=== PATIENT | female | born 1950 | race Caucasian/White ===

== ENCOUNTER 2017-02-11 15:00 | Outpatient (RCR) | payer OTHER, SELFPAY ==
--- NOTE | 2016-12-31 16:19 | HP.PTEVAL_ITS ---
Patient's Visit Information ANA HILTON is a 66 year old F referred to Physical Therapy by Tom Valencia with a diagnosis of LOW BACK PAIN. Date of Evaluation: 12/31/16 Physical Therapist: Radha Rangel Visit Plan Frequency: 3x /Week Duration: 4 Weeks Plan: POSTURE CORRECTION/STRENGTHENING, INSTRUCTION IN APPROPRIATE BODY MECHANICS AND ACTIVITY MODIFICATIONS. DLS STARTING WITH A NEUTRAL SPINE PROGRESSING ROM TOLERATED. NICK LE ROM, STRETCHING AND STRENGTHENING. HEP INSTRUCTION. - Subjective Subjective: Work/Leisure: [employer]. WORKING 6 DAYS A WEEK - ABOUT 30-35 HOURS A WEEK. Disability: NO. Present symptoms: NICK LOW BACK. LEFT BACK AND BUTTOCK REGION. LEFT THIGH PAIN AND NUMBNESS. THE NUMBNESS IS ON THE TOP OF HER THIGH. NO LEG OR FOOT SX'S. THIGH PAIN WRAPS AROUND TO FRONT. Present since: OCT 2016. Pain Scale: WORST 12/10, LEAST 1/ 10. THERE IS ALWAYS PRESSURE THERE. Currently: 03/11. IMPROVIING. Commenced as a result of: NO APPARENT REASON. Symptoms at onset: LEFT LOW BACK/BUTTOCK PAIN. Worse: STANDING AND WALKING. 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 Better: SITTING AND ADVIL. Disturbed sleep: NO. Previous history/Previous treatment: EPSISODIC LBP FOR ABOUT 20 YEARS. 6 CHIROPRACTIC VISITS ABOUT 4 YEARS AGO. ANTI-INFLAMATORIES AND MUSCLE RELAXERS IN THE PAST. MAINLY SELF TREATMENT PRIOR TO THIS EPISODE BECAUSE IT WOULD USUALLY GO AWAY. NO BACK OR HIP SURGERIES OR INJECTIONS. NO PRIOR PT. Coughing/sneezing/straining: NEGATIVE. Gait: INDEP WITHOUT AD. WALKING PROVOKES PAIN THOUGH. Difficulty initiating urinatin: NO. Accidents: NO. Unexplained weight loss: NO. Imaging: RECENT LUMBAR X-RAYS SHOWING NORMAL WEAR AND TEAR FOR MY AGE. PMH: HTN, CHEST PAIN, OSTEOPENIA. Recent major surgery: NO - Objective Sitting Posture: POOR. Standing Posture: FAIR. Active Correction of posture : WORSE. Other Observations: INDEP SIT TO STAND WITHOUT UE ASSIST EASILY. Motor deficit: NICK LE STRENGTH IS 5/5 WITH MMT EXCEPT HIPS GRADED 4-/5. Sensory deficit: NICK LE LIGHT TOUCH SENSATION IS INTACT AND SYMMETRICAL. ROM deficit: TIGHT NICK HIPS, KNEES, HS'S AND GASTROC SOLEUS COMPLEXS. TIGHTNESS IS FAIRLY SYMMETRICAL. RIGHT HIP ROM TESTING PROVOKES LBP BUT LEFT DOES NOT EVEN THOUGH HER CHEIF COMPLAINT IS LEFT BACK/HIP AND THIGH PAIN. Reflexes: NICK LE'S 2'/2. Dural Signs: NEGATIVE NICK LE DURAL SIGNS. Lumbar mvmt loss: flex - NIL +. ext - SHAI. R SG - SHAI. L SG - SHAI. Core strength: POOR. Palpation: TENDERNESS WITH PALPATION OF THE LEFT GREATER TROCH REGION. NO ACUTE LUMBAR TENDERNESS. - Goals Goal 1:: DECREASE C/O LOW BACK AND LEFT LE SX'S. Goal Time Frame: 4-6 Weeks Goal 2:: IMRPOVE STANDING, WALKING AND WORK FUNCTION Goal Time Frame: 4-6 Weeks Goal 3:: INSTRUCT IN PROPHYLAXIS Goal Time Frame: 4-6 Weeks - Rehabilitation Potential Rehabilitation Potential: Good - Anticipated Interventions Patient/Client Instruction: Educate patient on: Condition, Plan of Care, Risk Factors, Benefits of Fitness Program For the Purpose of:: To improve self management Therapeutic Exercise to Include: Strength training, Body mechanics, Postural training, Dynamic Lumbar Stabilization For the Purpose of:: To improve ability of physical actions for home/community/ work/leisure TENS: Yes IF ES: Yes Thermo therapy (hot pack): Yes Ultrasound (thermal/non thermal): Yes For the Purpose of:: To decrease pain, To decrease swelling/inflammation Thank you for the opportunity to evaluate your patient. For Medicare and Medicare HMO plans, please review the plan of care and approve it. It will need to be FAXED BACK to us at [phone] for Medicare purposes. Please let me know if there are questions or concerns regarding this plan of care. Physician Signature: Date:
== END 2017-02-11 15:30 | disposition home or self-care (01) ==
LOC: PT 15:00
PROVIDERS: Family Provider Family Medicine; PCP Family Medicine; Visit Provider Family Medicine
DX: M54.5 Low back pain (principal)
CPT/HCPCS: 97035; 97110 ×2; 97162; 97530 ×2

== ENCOUNTER → 2017-09-09 11:46 | Outpatient (CLI) | payer MEDICARE, SELFPAY ==
[2017-09-09 14:18] LABS: Absolute Lymphocyte Count 1.47 X10^3/ul (0.83-4.51); Basophil% 1.3 % (0-1); Eosinophil# 0.33 X10^3/uL; Eosinophils% 4.3 % (0-5); Hematocrit 39.2 % (37-47); Hemoglobin 12.8 g/dl (12.0-15.0); Lymphocyte # 1.47 X10^3/ul (4.0); Lymphocyte % 19.2 % (19-41); Mean Corp Hgb Conc 32.7 g/gl (32-36); Mean Corpuscular Hgb 28.8 pg (27.0-32.0); Mean Corpuscular Volume 88.3 fL (81-99); Mean Platelet Vol. 10.5 fl (6.2-12.0); Monocyte# 0.67 X10^3/uL; Monocyte% 8.8 % (0-10); Neutrophil # 5.02 X10^3/uL (2.7-7.7); Neutrophil % 65.6 % (47-70); Platelet Count 281 K/mm3 (150-450); RBC Distribution Width CV 13.1 % (11.6-14.6); RBC Distribution Width SD 42.2 fl (35.1-43.9); Red Blood Count 4.44 M/mm3 (4.2-5.4); White Blood Count 7.7 K/mm3 (4.4-11.0)
[2017-09-09 14:29] LABS: POSITIVE COUNT NO; POSITIVE DIFFERENTIAL NO; POSITIVE MORPHOLOGY NO
[2017-09-09 14:58] LABS: ALB/GLOB Ratio 0.9 RATIO (0.9-2.4); AST(SGOT) 44 U/L (15-37); Alanine Aminotransfer ALT/SGPT 24 U/L (13-56); Albumin, Serum 3.5 g/dL (3.2-5.0); Alkaline Phosphatase 88 U/L (45-117); Anion Gap 9 (5-15); BUN 14 mg/dL (7-18); BUN/Creat Ratio 19.8 RATIO (10-20); Calcium,Total 9.2 mg/dL (8.5-10.1); Chloride 105 mmol/L (98-107); Creatinine, Serum 0.71 mg/dL (0.55-1.02); EST Glomerular Filtration Rate 88 mL/min (>60); Est Glom Filt Rate - Afr Amer 107 mL/min (>60); Globulin 3.7 g/dL (2.2-4.2); Glucose 84 mg/dL (74-106); Potassium 3.8 mmol/L (3.5-5.1); Protein, Total 7.2 g/dL (6.4-8.2); Sodium Level 141 mmol/L (136-145); Thyroid Stim Hormone (TSH) 1.22 uIU/mL (0.358-3.74)
== END ==
PROVIDERS: Family Provider Family Medicine; PCP Family Medicine; Visit Provider Family Medicine
DX: R60.0 Localized edema (principal)
CPT/HCPCS: 36415; 80053; 84443; 85025

== ENCOUNTER → 2017-10-27 14:55 | Outpatient (CLI) | payer MEDICARE, SELFPAY | PROVIDERS: Family Provider Family Medicine; PCP Family Medicine; Visit Provider Family Medicine | DX: R06.00 Dyspnea, unspecified (principal) | CPT/HCPCS: 71046 ==

== ENCOUNTER → 2017-11-23 12:42 | Outpatient (CLI) | payer MEDICARE, SELFPAY ==
--- NOTE | 2017-11-23 12:45 | ECHOCS_ITS ---
Reason For Study: Dyspnea Procedure This was a 2D Doppler, Color Flow transthoracic echocardiogram. The study was technically difficult. Contrast injection was performed. Exam performed in department. Left Ventricle Normal LV size. Left ventricular systolic function is normal. The estimated ejection fraction is 55 %. No regional wall motion abnormalities noted. Right Ventricle Normal RV size. Normal systolic function. Atria The left atrium is mildly enlarged. Normal right atrium. Mitral Valve Normal mitral valve. Tricuspid Valve Normal tricuspid valve. Mild (1+) tricuspid valve insufficiency. Pulmonary artery systolic pressure is 40 mmHg. Aortic Valve Trisinus/trileaflet aortic valve. Mild focal aortic valve calcification. Mild aortic stenosis. Pulmonic Valve Normal pulmonic valve. Great Vessels Normal aortic root. The pulmonary artery is normal size. Normal inferior vena cava. Pericardium/Pleural No pericardial effusion. Medication 22 gauge I.V. with prn adaptor inserted into right arm. Diluted definity 3ml given slow IV push to enhance endocardial definition. MMode/2D Measurements & Calculations LVIDd: 4.3 cm IVSd: 1.1 cm LVOT diam: 1.9 cm LVIDs: 2.4 cm LVPWd: 0.87 cm LVOT area: 2.7 cm2 FS: 45.1 % Ao root diam: 2.8 cm LAV(MOD-sp4): 58.7 ml LVAd ap4: 29.4 cm2 LA dimension: 3.6 cm EDV(MOD-sp4): 95.4 ml EDV(sp4-el): 99.3 ml LVAs ap4: 15.4 cm2 ESV(MOD-sp4): 33.9 ml ESV(sp4-el): 32.2 ml EF(MOD-sp4): 64.5 % EF(sp4-el): 67.6 % SV(MOD-sp4): 61.5 ml SV(sp4-el): 67.1 ml LA A4 area: 20.2 cm2 Time Measurements MV dec time: 0.23 sec Doppler Measurements & Calculations MV E max kenna: 132.9 cm/sec MV V2 max: 154.1 cm/sec MV P1/2t max kenna: 155.0 cm/sec MV A max kenna: 118.5 cm/sec MV max P.5 mmHg MV P1/2t: 95.6 msec MV E/A: 1.1 MV V2 mean: 69.9 cm/sec MV dec slope: 475.0 cm/sec2 MV mean P.5 mmHg MVA(P1/2t): 2.3 cm2 MV V2 VTI: 46.4 cm MVA(VTI): 1.8 cm2 Ao V2 max: 212.9 cm/sec LV V1 max: 133.7 cm/sec SV(LVOT): 84.6 ml Ao max P.1 mmHg LV V1 max P.2 mmHg Ao V2 mean: 127.2 cm/sec LV V1 mean P.1 mmHg Ao mean P.7 mmHg LV V1 mean: 79.2 cm/sec Ao V2 VTI: 43.3 cm LV V1 VTI: 31.1 cm TERA(I,D): 2.0 cm2 TERA(V,D): 1.7 cm2 PA V2 max: 107.9 cm/sec TR max kenna: 295.9 cm/sec TR max P.0 mmHg Interpretation Summary Normal LV size. Left ventricular systolic function is normal. The estimated ejection fraction is 55 %. The left atrium is mildly enlarged. Mild (1+) tricuspid valve insufficiency. Mild focal aortic valve calcification. Mild aortic stenosis. Ordering Physician: Tom Valencia Referring Physician: Tom Valencia Performed By: Luis Brumfield RCS
== END ==
PROVIDERS: Family Provider Family Medicine; PCP Family Medicine; Visit Provider Family Medicine
DX: R06.00 Dyspnea, unspecified (principal)
CPT/HCPCS: 93306; Q9957; A4216; C8929

== ENCOUNTER → 2017-11-30 09:19 | Outpatient (CLI) | payer MEDICARE, SELFPAY ==
[2017-11-30 12:53] LABS: Anion Gap 8 (5-15); BUN 20 mg/dL (7-18); Calcium,Total 9.2 mg/dL (8.5-10.1); Chloride 101 mmol/L (98-107); Cholesterol 196 mg/dL (200); Creatinine, Serum 0.77 mg/dL (0.55-1.02); EST Glomerular Filtration Rate 80 mL/min (>60); Est Glom Filt Rate - Afr Amer 97 mL/min (>60); Glucose 93 mg/dL (74-106); High Density Lipoprotein 48 mg/dL; Potassium 3.9 mmol/L (3.5-5.1); Sodium Level 143 mmol/L (136-145); Triglycerides 97 mg/dL; Very Low Density Lipoprotein 19 mg/dL (5-40)
== END ==
PROVIDERS: Family Provider Family Medicine; PCP Family Medicine; Referring Provider Nurse Practitioner Adult Health; Visit Provider Nurse Practitioner Adult Health
DX: R60.0 Localized edema (principal); Z13.220 Encounter for screening for lipoid disorders
CPT/HCPCS: 36415; 80048; 80061

== ENCOUNTER 2017-12-24 12:17 | Observation (INO) | payer MEDICARE, SELFPAY ==
[2017-12-24] VITALS (9 sets, daily range): BP systolic 116–188; BP diastolic 57–89; PULSE 62–80; RESP 16–19; TEMP 36.8–37.1; O2SAT 95–99; BMI 49.5; BMI 47.8
--- NOTE | 2017-12-24 12:41 | EKG12_ITS ---
Test Reason : Blood Pressure : / mmHG Vent. Rate : 070 BPM Atrial Rate : 070 BPM P-R Int : 142 ms QRS Dur : 072 ms QT Int : 400 ms P-R-T Axes : 051 048 035 degrees QTc Int : 432 ms Normal sinus rhythm Normal ECG Confirmed by MARIA DE JESUS CLEMONS ([id number]), editor newspaper NELLY MENARD ([id number]) on 12/29/2017 8:59:33 AM Referred By: LANCE Confirmed By:MARIA DE JESUS CLEMONS
--- NOTE | 2017-12-24 12:42 | RAD_ITS ---
STUDY: X-RAY CHEST REASON FOR EXAM: Female, 67 years old. Dyspnea. Chest heaviness. TECHNIQUE: Single AP portable view of the chest. COMPARISON: Comparison is made with prior examination dated October 27, 2017. FINDINGS: EKG electrodes are seen. The lungs are clear and expanded. Scattered calcified granulomas. There is no demonstrated pleural abnormality. Normal size heart. Normal mediastinum and rupali. Normal visualized pulmonary arteries. Normal visualized aortic arch and descending thoracic aorta. There are diffuse degenerative changes of the visualized thoracic spine. Normal visualized ribs, clavicles, and shoulders. There is no demonstrated abnormality of the visualized soft tissue structures of the upper abdomen. RAD/Chest 1 View (Portable) IMPRESSION: No acute abnormality is seen. Electronically Signed: Jr Maddox MD at 13:32 EDT Tel [phone], Service support ,
[2017-12-24 12:52] LABS: Absolute Lymphocyte Count 1.45 X10^3/ul (0.83-4.51); Absolute Neutrophil Count 4.9 X10^3/uL (2.0-7.7); Basophil# 0.09 X10^3/uL; Basophil% 1.2 % (0-1); Eosinophil# 0.25 X10^3/uL; Eosinophils% 3.4 % (0-5); Hematocrit 37.9 % (37-47); Lymphocyte # 1.45 X10^3/ul (4.0); Mean Corp Hgb Conc 31.7 g/gl (32-36); Mean Corpuscular Hgb 28.2 pg (27.0-32.0); Mean Corpuscular Volume 89.2 fL (81-99); Monocyte# 0.49 X10^3/uL; Monocyte% 6.8 % (0-10); Neutrophil # 4.94 X10^3/uL (2.7-7.7); Neutrophil % 68.2 % (47-70); Platelet Count 291 K/mm3 (150-450); RBC Distribution Width CV 13.4 % (11.6-14.6); RBC Distribution Width SD 43.8 fl (35.1-43.9); Red Blood Count 4.25 M/mm3 (4.2-5.4); White Blood Count 7.3 K/mm3 (4.4-11.0)
[2017-12-24 12:56] LABS: POSITIVE COUNT NO; POSITIVE DIFFERENTIAL NO; POSITIVE MORPHOLOGY NO
[2017-12-24 13:03] LABS: Anion Gap 5 (5-15); BUN 13 mg/dL (7-18); BUN/Creat Ratio 13.8 RATIO (10-20); Chloride 105 mmol/L (98-107); Creatinine, Serum 0.94 mg/dL (0.55-1.02); EST Glomerular Filtration Rate 63 mL/min (>60); Est Glom Filt Rate - Afr Amer 76 mL/min (>60); Estimated Creatinine Clearance 42.86 ml/min; Glucose 104 mg/dL (74-106); Potassium 3.5 mmol/L (3.5-5.1); Sodium Level 140 mmol/L (136-145)
--- NOTE | 2017-12-24 13:38 | CT_ITS ---
STUDY: CTA CHEST REASON FOR EXAM: Female, 67 years old. 3 month history of fatigue, chest pain and dyspnea. RADIATION DOSAGE (If Supplied By Facility): CTDIvol = ( 14.73 ) mGy, DLP = ( 556.65 ) mGycm TECHNIQUE: The examination was performed with the intravenous administration of 100 ml of Isovue 370 contrast material. Post-processing of the angiographic images was performed, with multiplanar reformation and 3D reconstruction. Individualized dose optimization techniques were used for this CT. COMPARISON: Comparison is made with prior chest radiograph done earlier in the day. FINDINGS: There is a 3.8 cm x 3.1 cm inhomogeneous solid mass in the right lobe of the thyroid gland. This most likely represents goitrous enlargement. Normal enhancement of the main pulmonary artery and right and left pulmonary arteries. Normal enhancement of the bilateral peripheral pulmonary arteries. There is no demonstrated pulmonary embolism. Normal thoracic aorta and visualized great vessels. There is no demonstrated aortic dissection. Normal heart and pericardium. There are visualized mediastinal lymph nodes, which are within normal size limits, and with normal morphology. Normal hilar regions. Normal visualized trachea and bronchi. The lungs are well expanded. Normal pulmonary parenchyma. Normal pleura. Normal chest wall structures. There are degenerative changes of thoracic spine. The patient is status post cholecystectomy. CT/CTA Chest W/WO Contrast IMPRESSION: Normal CTA chest examination, without a demonstrated pulmonary embolism or arterial dissection. Electronically Signed: Jr Maddox MD at 15:01 EDT Tel [phone], Service support ,
--- NOTE | 2017-12-24 16:04 | ED.VISSUMM ---
- ER Visit Summary Date of Service: 12/24/17 Chief Complaint: Dyspnea History of Present Illness: The patient is a 67 F who states that for the past several weeks she has been developing dyspnea on exertion. She states that she went to her doctor and had an echocardiogram done that showed some mild aortic stenosis. (Chart review shows this was performed October 2017. Ejection fraction 55% mild tricuspid insufficiency. Mild aortic stenosis. We will may artery pressure at 40.). She states that she had a sleep study done approximately 1 week ago and believes her symptoms have gotten significantly worse since then. She states she has to rest several times walking from the car into the emergency room. She also notes an associated left-sided chest tightness when she walks. She had a stress test in May 2016 that was negative. She has been referred to pulmonology Dr. Watkins for pulmonary function testing. I received a copy of her sleep study which was read as obstructive sleep apnea. Physical Examination: Afebrile vital signs are stable Gen: Well-nourished well-developed obese Head: Normocephalic atraumatic Eyes: Perrl EOMI ENT: TMs clear no rhinorrhea moist mucous membranes Neck: Supple no lymphadenopathy no JVD nontender CVS: Regular rate rhythm no murmurs normal S1-S2 Respiratory: No distress clear to auscultation bilaterally chest nontender Abdomen: Soft nontender nondistended normal bowel sounds no masses Back: Nontender Extremity: Nontender 1+ edema bilaterally Skin: Normal color no rash Neuro: alert orientated ?3 CN II-XII intact normal strength sensation reflexes gait cerebellar Psych: Normal affect normal mood Test Results: EKG demonstrated normal sinus rhythm at a rate of 70. No ectopy. CBC BMP troponin negative. Chest x-ray negative. CT Roxana of the chest negative for PE or for dissection. Emergency Department Course and Treatment: Patient was asked to ambulate with nursing. From walking from the room to the nurses desk she became short of breath pulse ox dropped to 90% and she had labored breathing. This improved with rest. I spoke with Dr. Andrews as well as and the plan will be admission for further evaluation. Impression: 1. Chest pain 2. Dyspnea 3. Obstructive sleep apnea This note was generated with [employer] dictation software. It may contain incorrect words, spelling, and punctuation that were not noted in review of the chart prior to signing ED Disposition - Plan for ED Patient: Chief Complaint: Chest Pain Referrals: Tom Valencia MD [Primary Care Provider] -
--- NOTE | 2017-12-24 16:07 | HP.PCM_ITS ---
Problem List (1) Shortness of breath Status: Acute (2) Chest heaviness Status: Acute History of Present Illness Date of Admission: 12/24/17 Chief Complaint: Worsening shortness of breath and chest heaviness. The patient is a 67 year old F with a history of hypertension and recently diagnosed sleep apnea. She was admitted through the ED on 12/24/2017 with complaint of worsening shortness of breath for the past 2 months which actually worsened the last 2 days. Is worse with exertion and not relieved by rest. She also had assisted chest heaviness which started 1 day ago. She denied any lightheadedness or dizziness no palpitations and also had no abdominal pain, diarrhea vomiting. She recently had a sleep study last Thursday and was diagnosed with sleep apnea but is here to have CPAP test. She has been referred to pulmonology 12 PFTs but is here to do so. In the ED vitals were significant for blood pressure 149/82. Chest x-ray showed no acute cardiopulmonary process and CT angiogram was negative. EKG showed normal sinus rhythm. Initial troponin was negative. 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 Denies: Chest Pain, Chest Tightness, Light Headedness, Orthopnea Respiratory: Reports: Shortness of Breath, Shortness of breath at rest, Shortness of breath upon exertion. Denies: Cough, Sputum production, Wheezing Gastrointestinal: Denies: Abdominal Pain, Nausea, Vomiting Genitourinary: Denies: Dysuria Gynecological: Reports: Breast symptoms Musculoskeletal: Denies: Joint Pain, Joint Tenderness Skin: Denies: Rash, Wounds Neurological: Denies: Numbness, Tingling, Focal weakness Psychiatric: Denies: Anxiety, Depression, Homicidal Ideations, Suicidal Ideations Hematologic/ Lymphatic: Denies: Easy Bruising, Easy Bleeding VTE Information - Inpt Only VTE Present on Admission: No VTE Pharm Prophylaxis ordered?: Yes - Physical Exam General: Alert, Oriented x3, Cooperative, No apparent distress HEENT: Atraumatic, PERRLA, EOMI, Normocephalic Oral: Moist Mucosa Neck: Supple, No JVD, Negative Carotid Bruits Lungs: Clear to auscultation, Normal air movement, No rhonchi, No wheeze, No rales Cardiovascular: Regular rate, Regular Rhythm, Normal S1, Normal S2, No murmurs Abdomen: Bowel Sounds Present, Soft, Non Tender, Non-Distended, No Hepato- splenomegaly Extremities: No clubbing, No cyanosis, Capillary Refill Less than 3 Seconds, - - Chronic bilateral lower extremity edema with some stasis dermatitis of right lower extremity. Skin: - - stasis dermatitis of RLE Musculoskeletal: No Tenderness to Palpation of Joints or Extremities Lymphatic: No Cervical, Supraclavicular, or Inguinal Adenopathy Neurological: Cranial nerves II-XII grossly intact Psych/Mental Status: Normal Affect, Appropriate, Alert and oriented to time, place, person, mood and affect Vital Signs Temp Pulse Resp BP Pulse Ox 98.6 F 75 16 149/82 H 96 12/24/17 12:17 12/24/17 16:00 12/24/17 16:00 12/24/17 16:00 12/24/17 16:00 Oxygen Delivery Method Room Air Weight: 253 lb 8.505 oz Body Mass Index (BMI) 49.5 Laboratory Tests Past 24 Hrs 12/24/17 12/24/17 12:25 12:25 WBC 7.3 RBC 4.25 Hgb 12.0 Hct 37.9 MCV 89.2 MCH 28.2 MCHC 31.7 L RDW 13.4 RDW Differential 43.8 Plt Count 291 MPV 10.0 Immature Gran % (Auto) 0.400 Neut % (Auto) 68.2 Lymph % (Auto) 20.0 [place] % (Auto) 6.8 Eos % (Auto) 3.4 Baso % (Auto) 1.2 H Absolute Neuts (auto) 4.9 Absolute Lymphs (auto) 1.45 Total Counted Not Reportable Sodium 140 Potassium 3.5 Chloride 105 Carbon Dioxide 30.0 Anion Gap 5 BUN 13 Creatinine 0.94 Estim Creat Clear Calc 42.86 Est GFR (MDRD) Af Amer 76 Est GFR (MDRD) Non-Af 63 BUN/Creatinine Ratio 13.8 Glucose 104 Calcium 9.0 Troponin I < 0.015 Assessment/Plan All Active Problems Shortness of breath (Acute) Chest heaviness (Acute) Chest pain (Acute) [age]-year-old female presenting with chest heaviness worsening shortness of breath of 2 months duration. 1. Chest heaviness, to rule out ACS * says she has had 2 stress tests in the past and they were negative. * EKG- normal sinus rhythm * initial troponin negative. * CXR showed no acute cardiopulmonary process. CT Angiogram showed a 3.8 x 3.1 cm inhomogeneous solid mass in right lobe of the thyroid gland likely presented goiter with enlargement was negative for any PE. * Admit to PCU with telemetry. * Cycle troponin. * Check A1c and lipid panel. * For stress test tomorrow morning. * Aspirin 81 mg daily and sublingual nitroglycerin as needed * 2. Hypertension: On lisinopril. Will continue. 3. Newly diagnosed sleep apnea: * To follow-up with pulmonology upon discharge. Yet To have CPAP test * 4. Thyroid mass: * CT scan picked up 3.8 x 3.1 cm inhomogeneous solid mass in the right lobe of thyroid gland most likely represents goitrous enlargement. Currently symptomatic. No previous CT to compare. * Will check TSH. 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 * DVT prophylaxis: Heparin CODE STATUS: Patient counseled extensively about differences between full code, DNR CC and DNR CCA. Patient elects to be full code. Total [id number] time 16 minutes. Code Visit OBSV E&M: 96386 Initial observation care L2 Procedures: 64110 Advncd Care Plan 30 Min
--- NOTE | 2017-12-24 17:13 | PCM.CONS.C ---
Problem List (1) Shortness of breath Status: Acute (2) Chest heaviness Status: Acute (3) Chest pain Status: Acute Qualifiers: Chest pain type: precordial pain Qualified Code(s): R07.2 - Precordial pain Reason for Consult Date of Consultation: 12/24/17 Reason for Consultation: Dyspnea on exertion, shortness of breath, chest heaviness. History of Present Illness: The patient is a 67 year old F, morbidly obese, nondiabetic, previous smoker who quit around 10 or 12 years ago after approximately [id number]-[id number] smoking history, no previous known COPD and recently evaluated for obstructive sleep apnea with a sleep study this past Thursday. Interestingly during the sleep study evaluation while she was on oxygen at night her breathing was much better. The patient states that over the last several weeks to months she has had progressively worsening dyspnea on exertion, shortness of breath, decreased exercise capacity and decreased energy level. This worsened to the point where she has developed substernal chest pressure which is nonradiating with no associated nausea or vomiting, mostly at rest but occasionally with exertion. In addition she has had chronic lower extremity edema that oscillates on a daily basis for the last several years and is recently gotten worse. The patient underwent a cardiac evaluation including an echocardiogram on 11/23/17 which showed normal LV function, RVSP of approximately 40 mmHg, and mild atherosclerotic thickening. Patient reports that she had a non-walking nuclear stress test on 06/16/16 which was negative for inducible ischemia. She has never had a catheterization. On further history, she has a significant positive family history of coronary disease and her younger brother who of a myocardial infarction at age 53, and a father and mother who both have coronary artery disease at 68 and 69 respectively. The patient recently underwent a sleep study per Dr. Watkins, which was reportedly positive for obstructive sleep apnea. She has not yet been fitted for her CPAP mask. The patient came to [facility] ER for extreme dyspnea on exertion and shortness of breath as well as her chest pressure. Her EKG showed normal sinus rhythm, normal axis, normal intervals, no acute changes. 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 Denies: Shortness of Breath, Orthopnea, PND, Palpitations, Lightheadedness, Dizziness, Near Syncope, Syncope Respiratory: Denies: Cough, Sputum Production, Hemoptysis Gastrointestinal: Denies: Hematemesis, Hematochezia, Melena Genitourinary: Denies: Dysuria, Hematuria Skin: Denies: Rash Objective: Vital Signs Temp Pulse Resp BP Pulse Ox 98.8 F 72 19 H 188/89 H 96 12/24/17 16:46 12/24/17 16:46 12/24/17 16:46 12/24/17 16:46 12/24/17 16:46 Oxygen Delivery Method Room Air Weight: 244 lb 14.937 oz Body Mass Index (BMI) 47.8 12/24/17 12:25: WBC 7.3, RBC 4.25, Hgb 12.0, Hct 37.9, MCV 89.2, MCH 28.2, MCHC 31.7 L, RDW 13.4, RDW Differential 43.8, Plt Count 291, MPV 10.0, Immature Gran % (Auto) 0.400, Neut % (Auto) 68.2, Lymph % (Auto) 20.0, [place] % (Auto) 6.8, Eos % (Auto) 3.4, Baso % (Auto) 1.2 H, Absolute Neuts (auto) 4.9, Total Counted Not Reportable 12/24/17 12:25: Sodium 140, Potassium 3.5, Chloride 105, Carbon Dioxide 30.0, Anion Gap 5, BUN 13, Creatinine 0.94, Est GFR (MDRD) Af Amer 76, Est GFR (MDRD) Non-Af 63, BUN/Creatinine Ratio 13.8, Glucose 104, Calcium 9.0, Troponin I < 0.015 Rhythm: EKG: ECHO: Stress Test: Cardiac Cath: Pending PCI: CT Surgery: Holter monitor: EPS: PPM: CXR: Chest CT Scan: Assessment/Plan 1. Dyspnea on exertion: The patient has several risk factors for dyspnea on exertion including previous smoking, obesity, lower extremity edema, shortness of breath, dyspnea on exertion and positive family history of premature coronary disease in her brother. I am somewhat concerned the patient may have coronary disease versus her pulmonary system being entirely responsible for her signs and symptoms. Patient has evidence of oscillating lower extremity edema suggesting increased pulmonary filling pressures as well. I recommended the patient be loaded with baby aspirin x4, followed by Plavix 300 mg x1, and that she undergo a left and right heart catheterization tomorrow morning. Although her stress test was negative in 2017, this does not exclude the possibility of possible multivessel coronary disease or left main disease which would explain her dyspnea on exertion. The risks/benefits of the procedure were thoroughly explained to the patient including limitations of on-site surgical backup, and the patient is agreed to proceed. The patient has no significant coronary disease I would refer her back to her primary radiographer mammographer Dr. Watkins for BiPAP therapy, and possible pulmonary function test for undiagnosed COPD. In addition we will start her on Lasix 40 mg IV daily to assist with lower extremity edema as well as William bandages to her bilateral lower extremity. 2. 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 Will obtain TSH and T4 for further evaluation, may require endocrine referral. 3. Hyperlipidemia: Recommend obtaining a fasting lipid profile to further risk stratify the patient's cardiac issues. 4. Thank you very much for the opportunity to participate in the cardiac care of your patient. Consultation time took place between 445 and 5:23 PM.
--- NOTE | 2017-12-24 17:18 | CON.PCM_ITS ---
Problem List (1) Shortness of breath Status: Acute (2) Chest heaviness Status: Acute (3) Chest pain Status: Acute Qualifiers: Chest pain type: precordial pain Qualified Code(s): R07.2 - Precordial pain Reason for Consult Date of Consultation: 12/24/17 Reason for Consultation: Dyspnea on exertion, shortness of breath, chest heaviness. History of Present Illness: The patient is a 67 year old F, morbidly obese, nondiabetic, previous smoker who quit around 10 or 12 years ago after approximately 44-dytj-uhxq smoking history, no previous known COPD and recently evaluated for obstructive sleep apnea with a sleep study this past Thursday. Interestingly during the sleep study evaluation while she was on oxygen at night her breathing was much better. The patient states that over the last several weeks to months she has had progressively worsening dyspnea on exertion, shortness of breath, decreased exercise capacity and decreased energy level. This worsened to the point where she has developed substernal chest pressure which is nonradiating with no associated nausea or vomiting, mostly at rest but occasionally with exertion. In addition she has had chronic lower extremity edema that oscillates on a daily basis for the last several years and is recently gotten worse. The patient underwent a cardiac evaluation including an echocardiogram on 11/23/17 which showed normal LV function, RVSP of approximately 40 mmHg, and mild atherosclerotic thickening. Patient reports that she had a non-walking nuclear stress test on 06/16/16 which was negative for inducible ischemia. She has never had a catheterization. On further history, she has a significant positive family history of coronary disease and her younger brother who of a myocardial infarction at age 53, and a father and mother who both have coronary artery disease at 68 and 69 respectively. The patient recently underwent a sleep study per Dr. Watkins, which was reportedly positive for obstructive sleep apnea. She has not yet been fitted for her CPAP mask. The patient came to [facility] ER for extreme dyspnea on exertion and shortness of breath as well as her chest pressure. Her EKG showed normal sinus rhythm, normal axis, normal intervals, no acute changes. 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 Denies: Shortness of Breath, Orthopnea, PND, Palpitations, Lightheadedness, Dizziness, Near Syncope, Syncope Respiratory: Denies: Cough, Sputum Production, Hemoptysis Gastrointestinal: Denies: Hematemesis, Hematochezia, Melena Genitourinary: Denies: Dysuria, Hematuria Skin: Denies: Rash Objective: Vital Signs Temp Pulse Resp BP Pulse Ox 98.8 F 72 19 H 188/89 H 96 12/24/17 16:46 12/24/17 16:46 12/24/17 16:46 12/24/17 16:46 12/24/17 16:46 Oxygen Delivery Method Room Air Weight: 244 lb 14.937 oz Body Mass Index (BMI) 47.8 12/24/17 12:25: WBC 7.3, RBC 4.25, Hgb 12.0, Hct 37.9, MCV 89.2, MCH 28.2, MCHC 31.7 L, RDW 13.4, RDW Differential 43.8, Plt Count 291, MPV 10.0, Immature Gran % (Auto) 0.400, Neut % (Auto) 68.2, Lymph % (Auto) 20.0, [place] % (Auto) 6.8, Eos % (Auto) 3.4, Baso % (Auto) 1.2 H, Absolute Neuts (auto) 4.9, Total Counted Not Reportable 12/24/17 12:25: Sodium 140, Potassium 3.5, Chloride 105, Carbon Dioxide 30.0, Anion Gap 5, BUN 13, Creatinine 0.94, Est GFR (MDRD) Af Amer 76, Est GFR (MDRD) Non-Af 63, BUN/Creatinine Ratio 13.8, Glucose 104, Calcium 9.0, Troponin I < 0.015 Rhythm: EKG: ECHO: Stress Test: Cardiac Cath: Pending PCI: CT Surgery: Holter monitor: EPS: PPM: CXR: Chest CT Scan: Assessment/Plan 1. Dyspnea on exertion: The patient has several risk factors for dyspnea on exertion including previous smoking, obesity, lower extremity edema, shortness of breath, dyspnea on exertion and positive family history of premature coronary disease in her brother. I am somewhat concerned the patient may have coronary disease versus her pulmonary system being entirely responsible for her signs and symptoms. Patient has evidence of oscillating lower extremity edema suggesting increased pulmonary filling pressures as well. I recommended the patient be loaded with baby aspirin x4, followed by Plavix 300 mg x1, and that she undergo a left and right heart catheterization tomorrow morning. Although her stress test was negative in 2017, this does not exclude the possibility of possible multivessel coronary disease or left main disease which would explain her dyspnea on exertion. The risks/benefits of the procedure were thoroughly explained to the patient including limitations of on- site surgical backup, and the patient is agreed to proceed. The patient has no significant coronary disease I would refer her back to her primary interior assemblies installer Dr. Watkins for BiPAP therapy, and possible pulmonary function test for undiagnosed COPD. In addition we will start her on Lasix 40 mg IV daily to assist with lower extremity edema as well as William bandages to her bilateral lower extremity. 2. 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 Will obtain TSH and T4 for further evaluation, may require endocrine referral. 3. Hyperlipidemia: Recommend obtaining a fasting lipid profile to further risk stratify the patient's cardiac issues. 4. Thank you very much for the opportunity to participate in the cardiac care of your patient. Consultation time took place between 445 and 5:23 PM.
[2017-12-24] MEDS: Clopidogrel Bisulfate 300 MG Tablet PO (17:36)
[2017-12-24] MEDS: Aspirin 81 MG TAB.CHEW 324 MG PO (17:36)
--- NOTE | 2017-12-24 17:49 | EKG12_ITS ---
Test Reason : ADMISSION Blood Pressure : / mmHG Vent. Rate : 059 BPM Atrial Rate : 059 BPM P-R Int : 162 ms QRS Dur : 078 ms QT Int : 430 ms P-R-T Axes : 030 044 038 degrees QTc Int : 425 ms Sinus bradycardia Otherwise normal ECG When compared with ECG of 24-DEC-2017 12:21, MANUAL COMPARISON REQUIRED, DATA IS UNCONFIRMED Confirmed by MARIA DE JESUS CLEMONS ([id number]), publications editor NELLY MENARD ([id number]) on 12/29/2017 12:47:27 PM Referred By: JUDY Confirmed By:MARIA DE JESUS CLEMONS
[2017-12-24 18:23] LABS: Cholesterol 197 mg/dL (200); High Density Lipoprotein 44 mg/dL; T4 Free Direct 1.11 ng/dL (0.76-1.46); Thyroid Stim Hormone (TSH) 1.32 uIU/mL (0.358-3.74); Triglycerides 133 mg/dL; Very Low Density Lipoprotein 27 mg/dL (5-40)
[2017-12-24] MEDS: 0.9% NaCl Peripheral Flush Adult/Peds IV (21:28)
[2017-12-25] VITALS (17 sets, daily range): BP systolic 121–149; BP diastolic 54–96; PULSE 57–140; RESP 14–18; TEMP 36.6–37.3; O2SAT 94–97
[2017-12-25 05:52] LABS: Absolute Lymphocyte Count 1.21 X10^3/ul (0.83-4.51); Absolute Neutrophil Count 3.7 X10^3/uL (2.0-7.7); Basophil# 0.07 X10^3/uL; Basophil% 1.2 % (0-1); Eosinophil# 0.24 X10^3/uL; Hematocrit 35.2 % (37-47); Hemoglobin 11.4 g/dl (12.0-15.0); Lymphocyte # 1.21 X10^3/ul (4.0); Lymphocyte % 20.3 % (19-41); Mean Corp Hgb Conc 32.4 g/gl (32-36); Mean Corpuscular Hgb 28.9 pg (27.0-32.0); Mean Corpuscular Volume 89.1 fL (81-99); Mean Platelet Vol. 10.1 fl (6.2-12.0); Monocyte# 0.66 X10^3/uL; Monocyte% 11.1 % (0-10); Neutrophil # 3.74 X10^3/uL (2.7-7.7); Neutrophil % 62.9 % (47-70); Platelet Count 237 K/mm3 (150-450); RBC Distribution Width CV 13.6 % (11.6-14.6); RBC Distribution Width SD 44.3 fl (35.1-43.9); Red Blood Count 3.95 M/mm3 (4.2-5.4)
--- NOTE | 2017-12-25 05:55 | EKG12_ITS ---
Test Reason : AM Blood Pressure : / mmHG Vent. Rate : 064 BPM Atrial Rate : 064 BPM P-R Int : 160 ms QRS Dur : 080 ms QT Int : 422 ms P-R-T Axes : 037 055 026 degrees QTc Int : 435 ms Normal sinus rhythm Normal ECG When compared with ECG of 24-DEC-2017 16:37, MANUAL COMPARISON REQUIRED, DATA IS UNCONFIRMED Confirmed by MARIA DE JESUS CLEMONS ([id number]), editor magazine NELLY MENARD ([id number]) on 12/29/2017 12:46:25 PM Referred By: JUDY Confirmed By:MARIA DE JESUS CLEMONS
[2017-12-25 06:06] LABS: POSITIVE COUNT NO; POSITIVE DIFFERENTIAL NO; POSITIVE MORPHOLOGY NO
[2017-12-25 06:12] LABS: Anion Gap 5 (5-15); BUN 14 mg/dL (7-18); BUN/Creat Ratio 18.4 RATIO (10-20); Calcium,Total 8.9 mg/dL (8.5-10.1); Chloride 107 mmol/L (98-107); Creatinine, Serum 0.76 mg/dL (0.55-1.02); EST Glomerular Filtration Rate 81 mL/min (>60); Est Glom Filt Rate - Afr Amer 98 mL/min (>60); Estimated Creatinine Clearance 53.01 ml/min; Glucose 103 mg/dL (74-106); Potassium 3.9 mmol/L (3.5-5.1); Prothrombin Time (Protime)PT. 13.6 SECONDS (11.7-14.9); Sodium Level 142 mmol/L (136-145)
[2017-12-25 06:13] LABS: Partial Thromboplast Time 33.2 Seconds (24.1-36.2)
[2017-12-25] MEDS: Lisinopril 10 MG Tablet PO (06:27)
[2017-12-25] MEDS: Aspirin 81 MG TAB.CHEW PO (06:27)
[2017-12-25] MEDS: 0.9% Normal Saline 1,000 ML 15 ML IV (06:28)
[2017-12-25 06:56] LABS: Mucous, Urine 0 SEEN /hpf (<or=2+); Red Blood Cells-Urine 0 SEEN /hpf (0-5)
[2017-12-25 06:57] LABS: Color, Urine Yellow (Yellow); Glucose, Dipstick Normal (Normal); Ketone-Dipstick Negative (Negative); Leukocyte Esterase-Dipstick 500 /ul (Negative); Nitrite-Dipstick Negative (Negative); Occult Blood-Urine Negative /ul (Negative); Protein-Dipstick 15 mg/dl (Negative); Specific Gravity, Urine 1.025 (1.002-1.030); Urine Bilirubin Dipstick Negative (Negative); Urine Clarity Clear (Clear); Urine Urobilinogen Normal (Normal)
[2017-12-25 07:08] LABS: Bacteria RARE /hpf (None Seen); Squamous Epithelial Cells - UA 0-5 SEEN /hpf (5-10); White Blood Cells 5-10 SEEN /hpf (0-5)
[2017-12-25] MEDS: Clopidogrel Bisulfate 75 MG Tablet PO (09:03)
[2017-12-25] MEDS: Pantoprazole Sodium 40 MG Tablet PO (09:04)
[2017-12-25] MEDS: DiphenhydrAMINE 25 MG Capsule 50 MG PO (11:28)
--- NOTE | 2017-12-25 12:53 | CASEMGMT ---
According to O website, the following are in-network tertiary facilities: [facility], [facility], [facility], [facility], [facility], [facility], [facility], [facility], and . Randy BARRY CM
--- NOTE | 2017-12-25 13:24 | CL.D_ITS ---
Patient Name: ANA HILTON Study Date: 12/25/2017 Performing: Luis Andrews MD Ht: 59.84 inches 152 cm : 1950 Wt: 244.71 lbs 111 kg Age: 67 Gender: female BSA: 2.03 PROCEDURE(S) PERFORMED [id number]/LHC/COR/LV CLINICAL PROFILE AND INDICATIONS Indications: ACS <= 24 hrs, Suspected CAD, Other; worsening dyspnea on exertion. Heart Failure: None Stress/Imaging Stress Test w/SPECT MPI: Yes Result: NegativeStress Test with SPECT MPI: Negative Angina Classification Anginal Classification w/in 2 Weeks: CCS III CAD Presentations: Other: Worsening dyspnea on exertion. Comorbidities/Risk Factors: Hypertension Dyslipidemia CONCLUSIONS Normal Left Ventricular systolic function Non obstructive coronary arteries The patient has pulmonary hypertension which is moderate. Right heart pressures - moderately elevated RECOMMENDATIONS Risk factor modification ASA Indefinitely Management as per referring Line Prep Cook Bipap eval for THANH. D/c plavix; start coreg, cozaar, and increase lasix. Successful Mynx closure device. DESCRIPTION OF PROCEDURE The patient arrived to the procedure lab. The risks and benefits of the procedure as well as a full d escription of our services here and current unavailability of surgical backup were fully explained to the patient and/or their significant other prior to the catheterization. The Timeout was completed, verifying the correct patient and procedure. The patient's procedural site was prepped and draped in the usual fashion. Local anesthetic was given subcutaneously to right groin region with Lidocaine 2%. Using a modified Seldinger technique, arterial access was obtained via the right femoral artery, a 4 Fr sheath was inserted Venous access was obtained via the right femoral vein, a 7Fr sheath was insert ed. A 7Fr thermal dilution catheter was inserted and right heart pressures were recorded, it was then advanced to PA position for cardiac outputs. Thermal dilution cardiac outputs were then recorded. O2 saturations were then obtained. Left Ventriculography was performed in BENITEZ projection using a 4 Fr. Pigtail catheter. The Thermal dilution catheter was then removed. Left Coronary Artery selective angiography was performed in multiple views using a 4 Fr. JL5 catheter. Right Coronary Debbie ry selective angiography was then performed in multiple views using a 4 Fr. 3DRC catheter. Right lon c selective angiography was then performed in single view.The arterial sheath was pulled and a Mynx c losure device was deployed for hemostasis. The venous sheath was then pulled and manual compression a pplied until hemostasis achieved CORONARY ANGIOGRAPHY DOMINANCE: Right Dominant LEFT HEART ASSESSMENT Left Ventricular Ejection Fraction: by LV Gram 75 % Normal LV wall motion Normal Left Ventricular systolic function Left Ventricular Hypertrophy LVEDP: 23 mmHg Elevated Left Ventricular End Diastolic Pressure RIGHT HEART ASSESSMENT Thermal CO: 7.23 Thermal CI: 3.56 Susan CO: 6.7 Susan CI: 3.3 PW: 16 PA: 49/4 27 RV: 44/8 15 RA: 01/09 6 PVR: 122 SVR: 1184 LEFT MAIN: Angiographically normal LEFT ANTERIOR DECENDING ARTERY: PROX LAD: Non-obstructive CIRCUMFLEX ARTERY: MID CIRC: 30 % Stenosis RIGHT CORONARY ARTERY: Angiographically normal RT PDA: Proximal - Angiographically normal COMPLICATIONS No Complications PROCEDURE MEDICATIONS Versed 1 mg IV Nitro 200 mcg IC 12/25/2017 13:00:31 Nitro 200 mcg IC 12/25/2017 13:00:31 SUMMARY OF HEMODYNAMIC DATA Time AIR REST ECG 12:11:14 RA 01/09 (6) SV 12:44:12 RV 44/8, 15 12:44:32 PW (16) PV 12:45:21 PA 49/4 (27) PA 12:46:06 LV 175/-14, 24 12:50:22 LV 168/-21, 14 12:50:29 LV 171/-20, 18 12:51:00 PW (17) 12:51:00 LV 174/-13, 23 12:51:06 PW (24) 12:51:06 LV 193/-13, 25 12:51:25 RV 56/8, 19 12:51:25 LV 195/-15, 26 12:52:47 LV 188/-15, 30 12:52:54 LVp 178/-24, 18 12:52:58 AOp 175/69 (109) 12:53:03 AO 145/87 (113) SA 12:55:06 Type SV CO (l/m) CI (l/m/ HR Time AIR REST Thermal 95.10 7.23 3.56 76 12:11:14 Susan 88.20 6.70 3.30 76 12:11:14 Label % O2 Pres/Loc Time AIR REST AO 95 PV 13:09:46 PA 69 PA 13:09:51 Signed By Luis Andrews MD On 12/25/2017 13:24:23 Signed By Luis Andrews MD On 12/25/2017 13:24:01 Luis Andrews MD
[2017-12-25 13:26] LABS: Base Excess 1 mmol/L (-2 to +2); Bicarbonate 25.6 mmol/L (22-26); Blood Gas Specimen Type ART; PO2 74 mmHG (75-100); SO2 95 % (95-99); Total Carbon Dioxide 27 mmol/L; pH 7.44 (7.35-7.45)
[2017-12-25 13:26] LABS: Blood Gas Specimen Type VEN; VBG BASE EXCESS 2 mmol/L (-1.0-3.5); VBG Bicarbonate 26 mmol/L (22-26); VBG Oxygen Content 27 mmol/L (23-33); VBG PO2 35 mmHg (25-40); VBG SO2 70 % (50-70); VBG pCO2 38.5 mmHg (41-51); VBG pH 7.43 (7.32-7.42)
[2017-12-25 13:26] LABS: Blood Gas Specimen Type VEN; VBG BASE EXCESS 2 mmol/L (-1.0-3.5); VBG Bicarbonate 26 mmol/L (22-26); VBG Oxygen Content 28 mmol/L (23-33); VBG PO2 35 mmHg (25-40); VBG SO2 68 % (50-70); VBG pCO2 40.1 mmHg (41-51); VBG pH 7.43 (7.32-7.42)
--- NOTE | 2017-12-25 14:16 | PCM.PROGNOTE ---
<Radha Molina - Last Filed: 12/25/17 14:33> Subjective: Patient seen exam. Denies further chest pain/chest pressure. Patient reports she has had dyspnea with minimal exertion for 3 months. She reports undergoing a recent sleep study with Dr. Watkins and has upcoming titration study. She wishes to have a titration study at [facility] and wishes to switch to Dr. Emanuel/Dr. Zhang. - Physical Exam General: Alert, Oriented x3, Cooperative, No apparent distress HEENT: Atraumatic, PERRLA, EOMI, Normocephalic Neck: Supple, No JVD, Negative Carotid Bruits Lungs: Clear to auscultation, Diminished Cardiovascular: Regular rate, Regular Rhythm, Normal S1, Normal S2, No murmurs Abdomen: Bowel Sounds Present, Soft, Non Tender, Non-Distended, Obese Extremities: No clubbing, No cyanosis, Capillary Refill Less than 3 Seconds, - - Chronic lymphedema and stasis dermatitis of the right lower extremity Skin: No rashes, No breakdown Musculoskeletal: No Tenderness to Palpation of Joints or Extremities Neurological: Cranial nerves II-XII grossly intact, Neuro grossly intact Psych/Mental Status: Normal Affect, Appropriate Vital Signs Temp Pulse Resp BP Pulse Ox 98.6 F 66 14 121/74 H 95 12/25/17 14:05 12/25/17 14:05 12/25/17 14:05 12/25/17 14:05 12/25/17 14:05 Oxygen Delivery Method Room Air Weight: 244 lb 14.937 oz Body Mass Index (BMI) 47.8 Intake and Output for Last 24 Hours 12/23/17 12/24/17 12/25/17 23:59 23:59 23:59 Intake Total 600 / 600 170 / 170 Balance 600 / 600 170 / 170 Laboratory Tests Past 24 Hrs 12/24/17 12/25/17 12/25/17 12:25 05:28 05:28 WBC 6.0 RBC 3.95 L Hgb 11.4 L Hct 35.2 L MCV 89.1 MCH 28.9 MCHC 32.4 RDW 13.6 RDW Differential 44.3 H Plt Count 237 MPV 10.1 Immature Gran % (Auto) 0.500 Neut % (Auto) 62.9 Lymph % (Auto) 20.3 [place] % (Auto) 11.1 H Eos % (Auto) 4.0 Baso % (Auto) 1.2 H Absolute Neuts (auto) 3.7 Absolute Lymphs (auto) 1.21 Total Counted Not Reportable PT INR APTT Specimen Type pH Bicarbonate Actual POC Total CO2 Base Excess O2 Saturation ABG pCO2 ABG pO2 VBG pH VBG pO2 VBG O2 Sat (Calc) VBG O2 Content VBG Base Excess POC Mix VBG pCO2 Pt Tmp Sodium 142 Potassium 3.9 Chloride 107 Carbon Dioxide 30.0 Anion Gap 5 BUN 14 Creatinine 0.76 Estim Creat Clear Calc 53.01 Est GFR (MDRD) Af Amer 98 Est GFR (MDRD) Non-Af 81 BUN/Creatinine Ratio 18.4 Glucose 103 Calcium 8.9 Triglycerides 133 Cholesterol 197 LDL Cholesterol 126 VLDL Cholesterol 27 HDL Cholesterol 44 TSH 1.32 Free T4 1.11 Urine Color Urine Clarity Urine pH Ur Specific [place] Urine Protein Urine Glucose (UA) Urine Ketones Urine Occult Blood Urine Nitrite Urine Bilirubin Urine Urobilinogen Ur Leukocyte Esterase Urine RBC Urine WBC Ur Squamous Epith Cells Urine Bacteria Urine Mucus 12/25/17 12/25/17 12/25/17 05:28 06:30 12:50 WBC RBC Hgb Hct MCV MCH MCHC RDW RDW Differential Plt Count MPV Immature Gran % (Auto) Neut % (Auto) Lymph % (Auto) [place] % (Auto) Eos % (Auto) Baso % (Auto) Absolute Neuts (auto) Absolute Lymphs (auto) Total Counted PT 13.6 INR 1.0 APTT 33.2 Specimen Type MARILEE pH Bicarbonate Actual POC Total CO2 Base Excess O2 Saturation ABG pCO2 ABG pO2 VBG pH 7.43 H VBG pO2 35 VBG O2 Sat (Calc) 68 VBG O2 Content 28 VBG Base Excess 2 POC Mix VBG pCO2 Pt Tmp 40.1 L Sodium Potassium Chloride Carbon Dioxide Anion Gap BUN Creatinine Estim Creat Clear Calc Est GFR (MDRD) Af Amer Est GFR (MDRD) Non-Af BUN/Creatinine Ratio Glucose Calcium Triglycerides Cholesterol LDL Cholesterol VLDL Cholesterol HDL Cholesterol TSH Free T4 Urine Color Yellow Urine Clarity Clear Urine pH 5.0 Ur Specific [place] 1.025 Urine Protein 15 H Urine Glucose (UA) Normal Urine Ketones Negative Urine Occult Blood Negative Urine Nitrite Negative Urine Bilirubin Negative Urine Urobilinogen Normal Ur Leukocyte Esterase 500 H Urine RBC 0 SEEN Urine WBC 5-10 SEEN Ur Squamous Epith Cells 0-5 SEEN Urine Bacteria RARE Urine Mucus 0 SEEN 12/25/17 12/25/17 12:53 12:57 WBC RBC Hgb Hct MCV MCH MCHC RDW RDW Differential Plt Count MPV Immature Gran % (Auto) Neut % (Auto) Lymph % (Auto) [place] % (Auto) Eos % (Auto) Baso % (Auto) Absolute Neuts (auto) Absolute Lymphs (auto) Total Counted PT INR APTT Specimen Type MARILEE ART pH 7.44 Bicarbonate Actual 25.6 POC Total CO2 27 Base Excess 1 O2 Saturation 95 ABG pCO2 38.0 ABG pO2 74 L VBG pH 7.43 H VBG pO2 35 VBG O2 Sat (Calc) 70 VBG O2 Content 27 VBG Base Excess 2 POC Mix VBG pCO2 Pt Tmp 38.5 L Sodium Potassium Chloride Carbon Dioxide Anion Gap BUN Creatinine Estim Creat Clear Calc Est GFR (MDRD) Af Amer Est GFR (MDRD) Non-Af BUN/Creatinine Ratio Glucose Calcium Triglycerides Cholesterol LDL Cholesterol VLDL Cholesterol HDL Cholesterol TSH Free T4 Urine Color Urine Clarity Urine pH Ur Specific [place] Urine Protein Urine Glucose (UA) Urine Ketones Urine Occult Blood Urine Nitrite Urine Bilirubin Urine Urobilinogen Ur Leukocyte Esterase Urine RBC Urine WBC Ur Squamous Epith Cells Urine Bacteria Urine Mucus Medical Necessity - Tobacco Use Smoking Status: Former smoker Tobacco Use: Cigarettes Assessment/Plan All Active Problems Shortness of breath (Acute) Chest heaviness (Acute) Chest pain (Acute) 1. Dyspnea on exertion, chest pressure-ACS ruled out. Patient underwent cardiac catheterization which demonstrated nonobstructive coronary arteries. Moderate pulmonary hypertension. Cardiology recommending aspirin indefinitely. Home blood pressure regimen adjusted. Home Lasix regimen increased to 40 mg daily. Lisinopril changed to losartan 50 mg daily. Started on Cozaar 6.25 mg twice daily. Monitor overnight. Anticipate DC tomorrow with further follow up with pulmonary medicine to address pulmonary hypertension. 2. Hypertension-improved. Continue Lasix, carvedilol, losartan regimen. 3. Obstructive sleep apnea-recently diagnosed. To have titration study. Wishes to transition from Dr. Watkins to Dr. Emanuel. Notified office. Pulmonary medicine to contact primary care physician for records and call patient for appointment. 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 TSH/free T4 normal. Recommend outpatient follow-up with endocrinology. 5. GERD-continue PPI. DVT prophylaxis-Lovenox subcu. This patient was seen by YOON Lucio under the supervision of Dr. Batista. <Danny Batista F - Last Filed: 12/25/17 17:39> - Physical Exam Vital Signs Temp Pulse Resp BP Pulse Ox 98.9 F 66 18 149/62 H 94 12/25/17 16:35 12/25/17 16:35 12/25/17 16:35 12/25/17 16:35 12/25/17 16:35 Oxygen Delivery Method Room Air Weight: 244 lb 14.937 oz Body Mass Index (BMI) 47.8 Intake and Output for Last 24 Hours 12/23/17 12/24/17 12/25/17 23:59 23:59 23:59 Intake Total 600 / 600 170 / 170 Balance 600 / 600 170 / 170 Laboratory Tests Past 24 Hrs 12/24/17 12/25/17 12/25/17 12:25 05:28 05:28 WBC 6.0 RBC 3.95 L Hgb 11.4 L Hct 35.2 L MCV 89.1 MCH 28.9 MCHC 32.4 RDW 13.6 RDW Differential 44.3 H Plt Count 237 MPV 10.1 Immature Gran % (Auto) 0.500 Neut % (Auto) 62.9 Lymph % (Auto) 20.3 [place] % (Auto) 11.1 H Eos % (Auto) 4.0 Baso % (Auto) 1.2 H Absolute Neuts (auto) 3.7 Absolute Lymphs (auto) 1.21 Total Counted Not Reportable PT INR APTT Specimen Type pH Bicarbonate Actual POC Total CO2 Base Excess O2 Saturation ABG pCO2 ABG pO2 VBG pH VBG pO2 VBG O2 Sat (Calc) VBG O2 Content VBG Base Excess POC Mix VBG pCO2 Pt Tmp Sodium 142 Potassium 3.9 Chloride 107 Carbon Dioxide 30.0 Anion Gap 5 BUN 14 Creatinine 0.76 Estim Creat Clear Calc 53.01 Est GFR (MDRD) Af Amer 98 Est GFR (MDRD) Non-Af 81 BUN/Creatinine Ratio 18.4 Glucose 103 Calcium 8.9 Triglycerides 133 Cholesterol 197 LDL Cholesterol 126 VLDL Cholesterol 27 HDL Cholesterol 44 TSH 1.32 Free T4 1.11 Urine Color Urine Clarity Urine pH Ur Specific [place] Urine Protein Urine Glucose (UA) Urine Ketones Urine Occult Blood Urine Nitrite Urine Bilirubin Urine Urobilinogen Ur Leukocyte Esterase Urine RBC Urine WBC Ur Squamous Epith Cells Urine Bacteria Urine Mucus 12/25/17 12/25/17 12/25/17 05:28 06:30 12:50 WBC RBC Hgb Hct MCV MCH MCHC RDW RDW Differential Plt Count MPV Immature Gran % (Auto) Neut % (Auto) Lymph % (Auto) [place] % (Auto) Eos % (Auto) Baso % (Auto) Absolute Neuts (auto) Absolute Lymphs (auto) Total Counted PT 13.6 INR 1.0 APTT 33.2 Specimen Type MARILEE pH Bicarbonate Actual POC Total CO2 Base Excess O2 Saturation ABG pCO2 ABG pO2 VBG pH 7.43 H VBG pO2 35 VBG O2 Sat (Calc) 68 VBG O2 Content 28 VBG Base Excess 2 POC Mix VBG pCO2 Pt Tmp 40.1 L Sodium Potassium Chloride Carbon Dioxide Anion Gap BUN Creatinine Estim Creat Clear Calc Est GFR (MDRD) Af Amer Est GFR (MDRD) Non-Af BUN/Creatinine Ratio Glucose Calcium Triglycerides Cholesterol LDL Cholesterol VLDL Cholesterol HDL Cholesterol TSH Free T4 Urine Color Yellow Urine Clarity Clear Urine pH 5.0 Ur Specific [place] 1.025 Urine Protein 15 H Urine Glucose (UA) Normal Urine Ketones Negative Urine Occult Blood Negative Urine Nitrite Negative Urine Bilirubin Negative Urine Urobilinogen Normal Ur Leukocyte Esterase 500 H Urine RBC 0 SEEN Urine WBC 5-10 SEEN Ur Squamous Epith Cells 0-5 SEEN Urine Bacteria RARE Urine Mucus 0 SEEN 12/25/17 12/25/17 12:53 12:57 WBC RBC Hgb Hct MCV MCH MCHC RDW RDW Differential Plt Count MPV Immature Gran % (Auto) Neut % (Auto) Lymph % (Auto) [place] % (Auto) Eos % (Auto) Baso % (Auto) Absolute Neuts (auto) Absolute Lymphs (auto) Total Counted PT INR APTT Specimen Type MARILEE ART pH 7.44 Bicarbonate Actual 25.6 POC Total CO2 27 Base Excess 1 O2 Saturation 95 ABG pCO2 38.0 ABG pO2 74 L VBG pH 7.43 H VBG pO2 35 VBG O2 Sat (Calc) 70 VBG O2 Content 27 VBG Base Excess 2 POC Mix VBG pCO2 Pt Tmp 38.5 L Sodium Potassium Chloride Carbon Dioxide Anion Gap BUN Creatinine Estim Creat Clear Calc Est GFR (MDRD) Af Amer Est GFR (MDRD) Non-Af BUN/Creatinine Ratio Glucose Calcium Triglycerides Cholesterol LDL Cholesterol VLDL Cholesterol HDL Cholesterol TSH Free T4 Urine Color Urine Clarity Urine pH Ur Specific [place] Urine Protein Urine Glucose (UA) Urine Ketones Urine Occult Blood Urine Nitrite Urine Bilirubin Urine Urobilinogen Ur Leukocyte Esterase Urine RBC Urine WBC Ur Squamous Epith Cells Urine Bacteria Urine Mucus Code Visit Addendum: Dr. Batista I personally examined the patient and reviewed the chart. I agree with the above. 67-year-old female with a history of hypertension, obstructive sleep apnea who presented with chest pain chest heaviness and shortness of breath. On admission troponin was less than 0.015 and her EKG was normal sinus. Given her history and her presentation cardiology was consulted and recommended cardiac cath which she underwent this morning. Coronary arteries were clean but she did have moderate pulmonary hypertension. Plan will be to discharge in the morning on medical management with aspirin indefinitely. She did also have a sleep study performed that stated she needed CPAP and she is pending her titration portion of the study. OBSV E&M: 21216 Initial observation care L2
[2017-12-25] MEDS: Carvedilol 6.25 MG Tablet PO (21:22)
[2017-12-26 03:00] VITALS: PULSE 63
[2017-12-26 03:17] VITALS: BP 142/56; PULSE 64; RESP 16; TEMP 37; O2SAT 96
[2017-12-26 07:27] VITALS: PULSE 60
[2017-12-26] MEDS: Aspirin 81 MG TAB.CHEW PO (09:08)
[2017-12-26] MEDS: Pantoprazole Sodium 40 MG Tablet PO (09:08)
[2017-12-26] MEDS: Carvedilol 6.25 MG Tablet PO (09:08)
[2017-12-26] MEDS: Losartan Potassium 50 MG Tablet PO (09:08)
[2017-12-26] MEDS: Furosemide 40 MG Tablet PO (09:08)
[2017-12-26 09:11] VITALS: BP 150/62; PULSE 68; RESP 16; TEMP 36.8; O2SAT 98
--- NOTE | 2017-12-26 10:23 | PCM.PN.CARD ---
Subjectve: Patient doing very well this morning. Right groin is clean/dry/intact. No 24-hour events. Telemetry showed normal sinus rhythm. Objective: Vital Signs Temp Pulse Resp BP Pulse Ox 98.3 F 68 16 150/62 H 98 12/26/17 09:11 12/26/17 09:11 12/26/17 09:11 12/26/17 09:11 12/26/17 09:11 Oxygen Delivery Method Room Air Weight: 244 lb 14.937 oz Body Mass Index (BMI) 47.8 Intake and Output for Last 24 Hours 12/24/17 12/25/17 12/26/17 23:59 23:59 23:59 Intake Total 600 / 600 890 / 890 Balance 600 / 600 890 / 890 General: Awake, Alert, Oriented x 3 HEENT: PERRL, EOMI, Sclera Non Icteric Neck: Supple, Good ROM, No Lymph Node Enlargement Lungs: Clear to auscultation Cardiovascular: Regular Rhythm, Normal S1, Normal S2, No Murmurs, No Rubs, No Gallops Vascular: No Carotid Bruits, Normal Femoral Pulses, Normal Radial Pulses, Normal Dorsalis Pedal Pulse, Normal Posterior Tibial Pulses Abdomen: Bowel Sounds Present, Soft, Non Tender, No HSM, No Organomegaly Extremities: No Cyanosis, No Clubbing, No edema Neurological: No Focal Motor or Sensory Deficit 12/25/17 12:50: VBG pH 7.43 H, VBG pO2 35, VBG O2 Sat (Calc) 68, VBG O2 Content 28, VBG Base Excess 2 12/25/17 12:53: VBG pH 7.43 H, VBG pO2 35, VBG O2 Sat (Calc) 70, VBG O2 Content 27, VBG Base Excess 2 12/25/17 12:57: pH 7.44, Bicarbonate Actual 25.6, POC Total CO2 27, Base Excess 1, O2 Saturation 95, ABG pCO2 38.0, ABG pO2 74 L Rhythm: EKG: ECHO: Stress Test: Cardiac Cath: Normal coronary arteries, moderate pulmonary hypertension, severe systemic hypertension, normal LV function. PCI: CT Surgery: Holter monitor: EPS: PPM: CXR: Chest CT Scan: Medical Necessity - Tobacco Use Smoking Status: Former smoker Tobacco Use: Cigarettes Assessment/Plan 1. Dyspnea on exertion: The patient has several risk factors for dyspnea on exertion including previous smoking, obesity, lower extremity edema, shortness of breath, dyspnea on exertion and positive family history of premature coronary disease in her brother. I am somewhat concerned the patient may have coronary disease versus her pulmonary system being entirely responsible for her signs and symptoms. Patient has evidence of oscillating lower extremity edema suggesting increased pulmonary filling pressures as well. Given the patient's risk factors, and ongoing symptoms she underwent a left and right heart catheterization by me yesterday which showed moderate pulmonary hypertension, severe systemic hypertension, normal LV function, and no significant coronary artery disease. We discontinued her Plavix and would recommend continuing baby aspirin, and we added Cozaar 50 mg a day, Coreg 6.25 mg twice daily, and Lasix 40 mg a day going forward. I believe the patient would markedly benefit from BiPAP to assist with pulmonary hypertension as well as systemic hypertension. The patient has no significant coronary disease I would refer her back to her primary grease monkey Dr. Watkins, or grease monkey of her choice, for BiPAP therapy, and possible pulmonary function test for undiagnosed COPD. 2. 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 TSH and T4 within normal limits. 3. Hyperlipidemia: Patient's LDL is 126 and HDL is 44. Given her nonobstructive coronary disease would recommend LDL reduction with Lipitor 20 mill grams p.o. nightly, and repeat lipid profile in 6 weeks time. 4. Thank you very much for the opportunity to participate in the cardiac care of your patient. Patient can follow-up with Dr. Andrews going forward. Patient may be discharged home today. Code Visit Inpatient E&M: 02502 Subs Hosp L2
--- NOTE | 2017-12-26 10:27 | PN.CARD_ITS ---
Subjectve: Patient doing very well this morning. Right groin is clean/dry/intact. No 24- hour events. Telemetry showed normal sinus rhythm. Objective: Vital Signs Temp Pulse Resp BP Pulse Ox 98.3 F 68 16 150/62 H 98 12/26/17 09:11 12/26/17 09:11 12/26/17 09:11 12/26/17 09:11 12/26/17 09:11 Oxygen Delivery Method Room Air Weight: 244 lb 14.937 oz Body Mass Index (BMI) 47.8 Intake and Output for Last 24 Hours 12/24/17 12/25/17 12/26/17 23:59 23:59 23:59 Intake Total 600 / 600 890 / 890 Balance 600 / 600 890 / 890 General: Awake, Alert, Oriented x 3 HEENT: PERRL, EOMI, Sclera Non Icteric Neck: Supple, Good ROM, No Lymph Node Enlargement Lungs: Clear to auscultation Cardiovascular: Regular Rhythm, Normal S1, Normal S2, No Murmurs, No Rubs, No Gallops Vascular: No Carotid Bruits, Normal Femoral Pulses, Normal Radial Pulses, Normal Dorsalis Pedal Pulse, Normal Posterior Tibial Pulses Abdomen: Bowel Sounds Present, Soft, Non Tender, No HSM, No Organomegaly Extremities: No Cyanosis, No Clubbing, No edema Neurological: No Focal Motor or Sensory Deficit 12/25/17 12:50: VBG pH 7.43 H, VBG pO2 35, VBG O2 Sat (Calc) 68, VBG O2 Content 28, VBG Base Excess 2 12/25/17 12:53: VBG pH 7.43 H, VBG pO2 35, VBG O2 Sat (Calc) 70, VBG O2 Content 27, VBG Base Excess 2 12/25/17 12:57: pH 7.44, Bicarbonate Actual 25.6, POC Total CO2 27, Base Excess 1, O2 Saturation 95, ABG pCO2 38.0, ABG pO2 74 L Rhythm: EKG: ECHO: Stress Test: Cardiac Cath: Normal coronary arteries, moderate pulmonary hypertension, severe systemic hypertension, normal LV function. PCI: CT Surgery: Holter monitor: EPS: PPM: CXR: Chest CT Scan: Medical Necessity - Tobacco Use Smoking Status: Former smoker Tobacco Use: Cigarettes Assessment/Plan 1. Dyspnea on exertion: The patient has several risk factors for dyspnea on exertion including previous smoking, obesity, lower extremity edema, shortness of breath, dyspnea on exertion and positive family history of premature coronary disease in her brother. I am somewhat concerned the patient may have coronary disease versus her pulmonary system being entirely responsible for her signs and symptoms. Patient has evidence of oscillating lower extremity edema suggesting increased pulmonary filling pressures as well. Given the patient's risk factors, and ongoing symptoms she underwent a left and right heart catheterization by me yesterday which showed moderate pulmonary hypertension, severe systemic hypertension, normal LV function, and no significant coronary artery disease. We discontinued her Plavix and would recommend continuing baby aspirin, and we added Cozaar 50 mg a day, Coreg 6.25 mg twice daily, and Lasix 40 mg a day going forward. I believe the patient would markedly benefit from BiPAP to assist with pulmonary hypertension as well as systemic hypertension. The patient has no significant coronary disease I would refer her back to her primary service tech/welder Dr. Watkins, or service tech/welder of her choice, for BiPAP therapy, and possible pulmonary function test for undiagnosed COPD. 2. 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 TSH and T4 within normal limits. 3. Hyperlipidemia: Patient's LDL is 126 and HDL is 44. Given her nonobstr uctive coronary disease would recommend LDL reduction with Lipitor 20 mill grams p.o. nightly, and repeat lipid profile in 6 weeks time. 4. Thank you very much for the opportunity to participate in the cardiac care of your patient. Patient can follow-up with Dr. Andrews going forward. Patient may be discharged home today. Code Visit Inpatient E&M: [id number] Subs Hosp L2
--- NOTE | 2017-12-26 11:29 | DCINST_ITS ---
You will use the following diet at home:: Cardiac Discharge Activity: Return to Normal Activity Call your doctor if you observe: Shortness of breath, Fainting spells, Chest pain Allergies/Adverse Reactions: Allergies codeine Adverse Reaction (Verified 05/24/16 14:41) Unknown naproxen sodium [From Aleve] Adverse Reaction (Verified 05/24/16 14:41) Shortness of breath Medications to take at Discharge Omeprazole [Prilosec] 40 mg PO DAILY 05/24/16 Aspirin [Aspirin, Baby] 81 mg PO DAILY@0800 #30 tab.chew 12/25/17 Carvedilol [Coreg (Beta Joslyn)] 6.25 mg PO BID #60 tablet 12/25/17 Furosemide [Lasix] 40 mg PO DAILY #30 tablet 12/25/17 Losartan Potassium [Cozaar] 50 mg PO DAILY #30 tablet 12/25/17 Potassium Chloride [K-Dur] 10 meq PO DAILYCM #30 tablet 12/25/17 Atorvastatin Calcium [Lipitor] 20 mg PO QHS #30 tablet 12/26/17 The following prescriptions were given: Aspirin [Aspirin, Baby] 81 mg PO DAILY@0800 #30 tab.chew Atorvastatin Calcium [Lipitor] 20 mg PO QHS #30 tablet Furosemide [Lasix] 40 mg PO DAILY #30 tablet Losartan Potassium [Cozaar] 50 mg PO DAILY #30 tablet Potassium Chloride [K-Dur] 10 meq PO DAILYCM #30 tablet Carvedilol [Coreg (Beta Joslyn)] 6.25 mg PO BID #60 tablet Primary Care Physician: Tom Valencia MD [Primary Care Provider] - Please follow up with your Primary Care Physician in: 1 Week Test Results: Test results from this visit will be discussed in further detail at your follow- up appointment, if applicable. Please Follow Up With: Faizan Emanuel MD When: Office to call for appt. Please Follow Up With: Luis Andrews MD When: Call for appt. Proposed Discharge Date: 12/26/17
--- NOTE | 2017-12-26 12:30 | PCM.DC.SUM ---
<Radha Molina - Last Filed: 12/26/17 12:35> Discharge Date and Diagnosis Date of Admission: 12/24/17 Date of Discharge: 12/26/17 - Primary Discharge Diagnosis 1. Dyspnea on exertion, chest pressure-ACS rule out. 2. Hypertension 3. Obstructive sleep apnea 4. Thyroid mass 5. GERD Hospital Course and Treatment Imaging Results: Diagnostic Data Chest X-Ray 12/24/17 12:42 IMPRESSION: No acute abnormality is seen. Electronically Signed: Jr Maddox MD at 13:32 EDT Tel [phone], Service support , Chest CTA 12/24/17 13:38 IMPRESSION: Normal CTA chest examination, without a demonstrated pulmonary embolism or arterial dissection. Electronically Signed: Jr Maddox MD at 15:01 EDT Tel [phone], Service support , Dr. Andrews- Cardiology Operations: None Procedures: Cardiac catheterization Summary of Care Provided: The patient is a 67 year old F admitted 12/24/2017 due to worsening shortness of breath and chest heaviness. 1. Dyspnea on exertion, chest pressure-ACS ruled out. Patient underwent cardiac catheterization which demonstrated nonobstructive coronary arteries. Moderate pulmonary hypertension. Cardiology recommending aspirin indefinitely. Home blood pressure regimen adjusted. Home Lasix regimen increased to 40 mg daily. Lisinopril changed to losartan 50 mg daily. Started on Cozaar 6.25 mg twice daily. Patient to check blood pressure twice daily and document findings for a follow-up appointment with primary care physician and cardiology. Patient has upcoming appointment with Dr. Andrews as outpatient. 2. Hypertension-improved. Continue Lasix, carvedilol, losartan regimen. Further outpatient monitoring as noted above. 3. Obstructive sleep apnea-recently diagnosed. To have titration study. Wishes to transition from Dr. Watkins to Dr. Emanuel. Notified office. Pulmonary medicine to contact primary care physician for records and call patient for appointment. 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 TSH/free T4 normal. Recommend outpatient follow-up with endocrinology, PCP referral. 5. GERD-continue PPI. General: Alert, Oriented x3, Cooperative, No apparent distress HEENT: Atraumatic, PERRLA, EOMI, Normocephalic Neck: Supple, No JVD, Negative Carotid Bruits Lungs: Clear to auscultation, Diminished Cardiovascular: Regular rate, Regular Rhythm, Normal S1, Normal S2, No murmurs Abdomen: Bowel Sounds Present, Soft, Non Tender, Non-Distended, Obese Extremities: No clubbing, No cyanosis, Capillary Refill Less than 3 Seconds, - - Chronic lymphedema and stasis dermatitis of the right lower extremity Skin: No rashes, No breakdown Musculoskeletal: No Tenderness to Palpation of Joints or Extremities Neurological: Cranial nerves II-XII grossly intact, Neuro grossly intact Psych/Mental Status: Normal Affect, Appropriate Patient seen exam prior to discharge. Physical assessment as noted above. Patient stable for discharge home with the follow-up her conditions as noted above. This patient was seen by YOON Lucio under the supervision of Dr. Batista. - Physical Exam Vital Signs Temp Pulse Resp BP Pulse Ox 98.3 F 68 16 150/62 H 98 12/26/17 09:11 12/26/17 09:11 12/26/17 09:11 12/26/17 09:11 12/26/17 09:11 Oxygen Delivery Method Room Air Weight: 244 lb 14.937 oz Body Mass Index (BMI) 47.8 Intake and Output for Last 24 Hours 12/24/17 12/25/17 12/26/17 23:59 23:59 23:59 Intake Total 600 / 600 890 / 890 Balance 600 / 600 890 / 890 Laboratory Tests Past 24 Hrs 12/25/17 12/25/17 12/25/17 12:50 12:53 12:57 Specimen Type MARILEE MARILEE ART pH 7.44 Bicarbonate Actual 25.6 POC Total CO2 27 Base Excess 1 O2 Saturation 95 ABG pCO2 38.0 ABG pO2 74 L VBG pH 7.43 H 7.43 H VBG pO2 35 35 VBG O2 Sat (Calc) 68 70 VBG O2 Content 28 27 VBG Base Excess 2 2 POC Mix VBG pCO2 Pt Tmp 40.1 L 38.5 L Discharge Diet: Low fat/ Low Cholesterol Discharge Activity: Return to Normal Activity Call your doctor if you observe: Shortness of breath, Fainting spells, Chest pain Home Medications: Medications to take at Discharge Omeprazole [Prilosec] 40 mg PO DAILY 05/24/16 Aspirin [Aspirin, Baby] 81 mg PO DAILY@0800 #30 tab.chew 12/25/17 Carvedilol [Coreg (Beta Joslyn)] 6.25 mg PO BID #60 tablet 12/25/17 Furosemide [Lasix] 40 mg PO DAILY #30 tablet 12/25/17 Losartan Potassium [Cozaar] 50 mg PO DAILY #30 tablet 12/25/17 Potassium Chloride [K-Dur] 10 meq PO DAILYCM #30 tablet 12/25/17 Atorvastatin Calcium [Lipitor] 20 mg PO QHS #30 tablet 12/26/17 Following Prescrptions Were Given to Patient: Aspirin [Aspirin, Baby] 81 mg PO DAILY@0800 #30 tab.chew Atorvastatin Calcium [Lipitor] 20 mg PO QHS #30 tablet Furosemide [Lasix] 40 mg PO DAILY #30 tablet Losartan Potassium [Cozaar] 50 mg PO DAILY #30 tablet Potassium Chloride [K-Dur] 10 meq PO DAILYCM #30 tablet Carvedilol [Coreg (Beta Joslyn)] 6.25 mg PO BID #60 tablet Primary Care Physician: Tom Valencia MD [Primary Care Provider] - Please follow up with your Primary Care Physician in: 1 Week Please Follow Up With: Faizan Emanuel MD When: Office to call for appt. Please Follow Up With: Luis Andrews MD When: As scheduled Disposition: Home Minutes spent on discharge:: 35 Patient Condition:: Stable Medical Necessity - Tobacco Use Smoking Status: Former smoker Tobacco Use: Cigarettes Meaningful Use Info Meaningful Use Diagnoses (Choose all that apply): None applicable <Danny Batista F - Last Filed: 12/26/17 14:25> Hospital Course and Treatment Summary of Care Provided: The patient is a 67 year old F [] - Physical Exam Vital Signs Temp Pulse Resp BP Pulse Ox 98.3 F 68 16 150/62 H 98 12/26/17 09:11 12/26/17 09:11 12/26/17 09:11 12/26/17 09:11 12/26/17 09:11 Oxygen Delivery Method Room Air Weight: 244 lb 14.937 oz Body Mass Index (BMI) 47.8 Intake and Output for Last 24 Hours 12/24/17 12/25/17 12/26/17 23:59 23:59 23:59 Intake Total 600 / 600 890 / 890 Balance 600 / 600 890 / 890 Code Visit Addendum: Dr. Batista I personally examined the patient and reviewed the chart. I agree with the above. 67-year-old female with a history of hypertension, obstructive sleep apnea who presented with chest pain, chest heaviness and shortness of breath. On admission her troponin was less than 0.015 and her EKG was normal sinus. Given her symptoms and presentation cardiology performed a cardiac cath. She was found to have moderate pulmonary hypertension as well as severe systemic hypertension with a normal LV function with no significant coronary artery disease. She was continued on aspirin and she was started on Cozaar and Coreg as well as Lasix. She will need to follow-up with cardiology as well as pulmonology for adjustment of her CPAP. Also had his extensive discussions with her about weight loss. OBSV E&M: [id number] Observation care discharge
== END 2017-12-26 11:29 | disposition home or self-care (01) ==
LOC: ED 13:20 → PCU 16:40
PROVIDERS: Internal Medicine Cardiovascular Disease; Admitting Provider Student in an Organized Health Care Education/Training Program; Emergency Provider Emergency Medicine; Family Provider Family Medicine; PCP Family Medicine; Visit Provider Family Medicine
DX: R07.89 Other chest pain (principal); R06.09 Other forms of dyspnea; I10 Essential (primary) hypertension; G47.33 Obstructive sleep apnea (adult) (pediatric); E07.9 Disorder of thyroid, unspecified; K21.9 Gastro-esophageal reflux disease without esophagitis; Z87.891 Personal history of nicotine dependence; I27.20 Pulmonary hypertension, unspecified; Z79.899 Other long term (current) drug therapy; I87.2 Venous insufficiency (chronic) (peripheral); E66.01 Morbid (severe) obesity due to excess calories; Z68.42 Body mass index [BMI] 45.0-49.9, adult; Z71.3 Dietary counseling and surveillance; E78.5 Hyperlipidemia, unspecified
CPT/HCPCS: 36415; 71045; 71275; 80048; 80061; 81001; 82803; 84439; 84443; 84484; 85025; 85610; 85730; 93005; 93460; 99152; 99153; 99218; 99283; C1760; J7030; Q9967; A4216; C1751; C1769; C1894; G0378

== ENCOUNTER → 2018-01-13 10:00 | Outpatient (CLI) | payer MEDICARE, SELFPAY ==
--- NOTE | 2018-01-13 10:07 | US_ITS ---
HISTORY: ENLARGED THYROID TECHNIQUE: Lewis scale and color doppler imaging was performed of the thyroid gland. COMPARISON: CTA chest 12/24/2017 FINDINGS: As correlated with recent CT exam, asymmetric enlargement of the right thyroid lobe with a small element of substernal extension on the right. The gland measurements estimated as follows: Right lobe: 5 x 2.7 x 2.8 cm Left lobe: 3.5 x 1.7 x 2.3 cm Thyroid isthmus 0.3 cm Lower pole right thyroid lobe dominant nodule which is solid, circumscribed, and mildly complex measuring 2.9 x 2.9 x 2.8 cm. Associated vascular flow within the nodule. The left thyroid lobe shows homogenous echotexture without discrete or dominant nodule. US/Thyroid IMPRESSION: 1. Asymmetric enlargement of the right thyroid lobe secondary to a dominant 2.9 cm solid nodule. 2. In the absence of prior comparison exams, ultrasound-guided FNA biopsy on the right should be considered at 0002 Reported and signed by: Jeferson Fuentes MD Electronically Signed: Jeferson Fuentes, at 0:00 EST Tel , Service support ,
== END ==
PROVIDERS: Family Provider Family Medicine; PCP Family Medicine; Referring Provider Family Medicine; Visit Provider Family Medicine
DX: E04.9 Nontoxic goiter, unspecified (principal)
CPT/HCPCS: 76536

== ENCOUNTER → 2018-02-03 11:49 | Outpatient (CLI) | payer MEDICARE, SELFPAY ==
--- NOTE | 2018-02-03 | ASPIG_PTH ---
PATIENT: ANA HILTON LOC: [facility]#:[id number] AGE/SX: 74/F ROOM: RE02/03/[address]: Dr. Tom Valencia MD : 1950 BED: DIS: SPEC #: [id number] RECD: 02/03/18 13:43 STATUS: DAVID MANZO #: [id number] PAXTON: 02/03/18 00:[address]: Tom Valencia DEPT: CYTOLOGY RECD BY: Manuel Patrick Tissues: Thyroid gland, NOS Procedures: FNA Specimen Adequacy Pap Stain (control) Special Stain Group II Surgery Specimen Level IV Diff Quik Stain (control) Cell Block Cytology Other HEADER OPERATION: Ultrasound-guided right thyroid biopsy PRE-OP DIAGNOSIS: Right thyroid nodule TISSUE SUBMITTED: Ultrasound-guided right thyroid nodule biopsy DIAGNOSIS CYTOLOGY Right thyroid nodule, ultrasound-guided FNA (smears and cell block): Consistent with benign follicular nodule with focal cystic changes. Adequate for evaluation. SJ:venus 02/04/18 COMMENT The specimen is evaluated at the time of FNA by Dr. Portillo. Immediate Evaluation = Follicular cells present. Adequate for evaluation. Correlation with clinical, radiologic findings and appropriate follow up are necessary. CYTOLOGY STUDY Slides are reviewed. CYTOLOGY GROSS Received is 0.2 ml of bloody fluid labeled with the patient's name, and designated right thyroid nodule. Six imprints and five paps are made from the submitted fluid and the rest is added to CytoL[employer] for cell block preparation. Submitted for cytology study. / LORENZO:venus 02/03/18 TC:5 CPT: 49261, 25510, 47157
--- NOTE | 2018-02-03 11:52 | US_ITS ---
PROCEDURE: ULTRASOUND GUIDED RIGHT THYROID FNA/BIOPSY. DATE: February 03, 2018 INDICATION: Female, 67 years old. Right thyroid nodule. PHYSICIAN: Jr Maddox M.D. MEDICATIONS: 2% lidocaine administered subcutaneously for local anesthesia. ACCESS SITE: Right - anterior approach. NEEDLE: 25-gauge FNA needle. SPECIMEN: Multiple FNA specimen collected and given to pathology. EBL: None. COMPLICATIONS: None immediate. PROCEDURE: The risks, benefits, and alternatives to the procedure were explained to the patient. The specific risk of hemorrhage requiring further treatment or intervention was detailed and accepted. Written informed consent was obtained. The patient was brought into the ultrasound room and placed in the supine position on the stretcher. An appropriate entry site was identified. The overlying skin was prepped and draped in the usual sterile fashion. 2% lidocaine was administered subcutaneously for local anesthesia. Under ultrasound guidance, a 25-gauge FNA needle was advanced into the lesion. Aspiration was performed and the needle was withdrawn. A total of 2 passes were performed with specimen collected and given to the pathologist who was present during the procedure. Hemostasis was achieved with manual compression. Repeat ultrasound images of the biopsy area was performed which demonstrated no gross bleeding or hematoma. An antibiotic ointment dressing was placed and the patient was given an icepack. The patient tolerated the procedure well without immediate complications. The patient was discharged in stable condition. US/US Thyroid Biopsy IMPRESSION: Successful ultrasound-guided right thyroid nodule FNA/biopsy, as described above. Electronically Signed: Jr Maddox MD at 14:28 EST Tel [phone], Service support ,
== END ==
PROVIDERS: Family Provider Family Medicine; PCP Family Medicine; Referring Provider Family Medicine; Visit Provider Family Medicine
DX: E04.1 Nontoxic single thyroid nodule (principal)
CPT/HCPCS: 10022; 76942; 88161; 88172; 88305; 88313

== ENCOUNTER → 2018-03-24 10:11 | Outpatient (CLI) | payer MEDICARE, SELFPAY ==
[2018-03-24 09:24] VITALS: BMI 46.3
[2018-03-24 10:42] LABS: Absolute Neutrophil Count 4.5 X10^3/uL (2.0-7.7); Basophil# 0.12 X10^3/uL; Basophil% 1.7 % (0-1); Eosinophil# 0.38 X10^3/uL; Eosinophils% 5.2 % (0-5); Hematocrit 38.9 % (37-47); Hemoglobin 12.3 g/dl (12.0-15.0); Lymphocyte % 22.1 % (19-41); Mean Corp Hgb Conc 31.6 g/gl (32-36); Mean Corpuscular Hgb 28.5 pg (27.0-32.0); Mean Platelet Vol. 10.1 fl (6.2-12.0); Monocyte% 8.3 % (0-10); Neutrophil # 4.52 X10^3/uL (2.7-7.7); Neutrophil % 62.4 % (47-70); Platelet Count 259 K/mm3 (150-450); RBC Distribution Width CV 13.3 % (11.6-14.6); RBC Distribution Width SD 44.2 fl (35.1-43.9); Red Blood Count 4.32 M/mm3 (4.2-5.4); White Blood Count 7.2 K/mm3 (4.4-11.0)
[2018-03-24 10:43] LABS: POSITIVE COUNT NO; POSITIVE DIFFERENTIAL NO; POSITIVE MORPHOLOGY NO
[2018-03-24 11:11] LABS: Ferritin 60 ng/mL (8-252); Iron 60 ug/dL (50-170); Iron Binding Capacity,Total 344 ug/dL (250-450); PERCENT IRON SATURATION 17.4 % (15.0-55.0)
--- OUTSIDE RECORDS SUMMARY | 2018-05-26 07:09 | XMS RPT_ITS ---
:1950 Author Organization OHIP Support Name Relationship Address Phone VANI HILTON Unavailable [address] + [place] [address] DUPLAGA, PATRIC Unavailable Unavailable + [employer] Unavailable [address] + [place] [address] VANI HILTON Unavailable [address] + [place] [address] DUPLAGA, PATRIC Unavailable . + [place] [address] [employer] Unavailable [address] + [place] [address] VANI HILTON Unavailable [address] + [place] [address] DUPLAGA, PATRIC Unavailable . + [place] [address] [employer] Unavailable [address] + [place] [address] VANI HILTON Unavailable [address] + [place] [address] DUPLAGA, PATRIC Unavailable Unavailable + [employer] Unavailable [address] + [place] [address] VANI HILTON Unavailable [address] + [place] [address] DUPLAGA, PATRIC Unavailable Unavailable + [employer] Unavailable [address] + [place] [address] VANI HILTON Unavailable [address] + [place] [address] DUPLAGA, PATRIC Unavailable . + [place] [address] [employer] Unavailable [address] + [place] [address] VANI HILTON Unavailable [address] + [place] [address] DUPLAGA, PATRIC Unavailable Unavailable + [place] [address] [employer] Unavailable [address] + [place] [address] VANI HILTON Unavailable [address] + [place] [address] DUPLAGA, PATRIC Unavailable Unavailable + [place] [address] [employer] Unavailable [address] + [place] [address] VANI HILTON Unavailable [address] + [place] [address] DUPLAGA, PATRIC Unavailable Unavailable + [place] [address] [employer] Unavailable [address] + [place] [address] VANI HILTON Unavailable [address] + [place] [address] DUPLAGA, PATRIC Unavailable . + [place] [address] [employer] Unavailable [address] + [place] [address] VANI HILTON Unavailable [address] + [place] [address] DUPLAGA, PATRIC Unavailable . + [place] [address] [employer] Unavailable [address] + [place] [address] VANI HILTON Unavailable [address] + [place] [address] DUPLAGA, PATRIC Unavailable . + [place] [address] [facility] Unavailable [address] + [place] [address] VANI HLITON Unavailable [address] + [place] [address] DUPLAGA, PATRIC Unavailable Unavailable + [place] [address] [employer] Unavailable [address] + [place] [address] VANI HILTON Unavailable [address] + [place] [address] DUPLAGA, PATRIC Unavailable Unavailable + [place] [address] [employer] Unavailable [address] + [place] [address] VANI HILTON Unavailable [address] + [place] [address] DUPLAGA, PATRIC Unavailable Unavailable + [place] [address] [employer] Unavailable [address] + [place] [address] VANI HILTON Unavailable [address] + [place] [address] DUPLAGA, PATRIC Unavailable Unavailable + [place] [address] [facility] Unavailable [address] + [place] [address] VANI HILTON Unavailable [address] + [place] [address] DUPLAGA, PATRIC Unavailable [address] + [place] [address] [facility] Unavailable [address] + [place] [address] Care Team Providers Name Role Phone Trena Torres Attending Unavailable Vani Menard Primary Care Unavailable Vani Menard Attending Unavailable Vani Menard Referring Unavailable Menard, Vani Primary Care Unavailable MenardVani Attending Unavailable MenardVani Referring Unavailable Menard, Vani Primary Care Unavailable Cheryl Aguirre Attending Unavailable Cheryl Aguirre Referring Unavailable Menard, Vani Primary Care Unavailable Dhaval Melo Attending Unavailable Vani Menard Referring Unavailable Menard, Vani Primary Care Unavailable Joana Landaverde Admitting Unavailable Danny Batista Attending Unavailable Valerie Landaverdea Justyna Admitting Unavailable Luis Clemons Attending Unavailable Menard, Vani Primary Care Unavailable Judy Joana Justyna Consulting Unavailable Koram, Joana Justyna Admitting Unavailable Koram, Joana Justyna Attending Unavailable Menard, Vani Primary Care Unavailable Koram, Joana Justyna Consulting Unavailable Koram, Joana Justyna Admitting Unavailable Menard, Vani Primary Care Unavailable Kotsonis, Danny F Consulting Unavailable Kotsonis, Danny F Attending Unavailable Koram, Joana Justyna Admitting Unavailable Luis Clemons Attending Unavailable Menard, Vani Primary Care Unavailable Kotsonis, Danny F Consulting Unavailable Koram, Joana Justyna Admitting Unavailable Menard, Vani Primary Care Unavailable Kotsonis, Danny F Consulting Unavailable Kotsonis, Danny F Attending Unavailable Luis Clemons Attending Unavailable Menard, Vani Referring Unavailable Menard, Vani Attending Unavailable Menard, Vani Referring Unavailable Menard, Vani Primary Care Unavailable Menard, Vani Attending Unavailable Menard, Vani Referring Unavailable Menard, Vani Primary Care Unavailable Preet Zhang D.O. Attending Unavailable Menard, Vani Referring Unavailable King, Jessica Attending Unavailable Menard, Vani Referring Unavailable King, Jessica Attending Unavailable King, Jessica Referring Unavailable Menard, Vani Primary Care Unavailable PROBLEMS PROBLEMS DATE TYPE CONDITION / CODE ATTENDING STATUS SOURCE 03/24/2018 Unknown R06.02 - Shortness of King, Active [place] breath / [facility] R06.02(ICD-10) Hospital Repository 03/24/2018 Unknown Z98.890 - Other King, Active [place] specified [facility] / Z98.890(ICD-10) Repository 01/05/2018 Unknown I25.10 - Luis Clemons Active [place] Atherosclerotic heart Community disease of [facility] coronary artery Repository without angina pectoris / I25.10(ICD-10) 11/30/2017 Unknown R60.0 - Localized [place], Active [place] edema / R60.0(ICD-10) [facility] Repository 11/30/2017 Unknown Z13.220 - Encounter [place], Active [place] for screening for [facility] lipoid disorders / Hospital Z13.220(ICD-10) Repository 11/16/2017 Unknown R06.00 - Dyspnea, Vani Menard Active [place] unspecified / Community R06.00(ICD-10) Hospital Repository 12/17/2017 Unknown R06.09 - Other forms Lorie, [place] Active [place] of dyspnea / Community R06.09(ICD-10) Hospital Repository PROCEDURES PROCEDURES No Procedure Records FoundRESULTS RESULTS CBC W/DIFF, AUTOMATED Collected: 03/24/2018 Status: F Source: [place] 10:18 AM [facility] REPOSITORY TYPE CODE TESTS RESULT OUT OF RANGE REFERENCE UNITS LAB L100.1000 4.4-11.0 K/mm3 Normal WBC 7.2 LAB L100.1200 4.2-5.4 M/mm3 Normal RBC 4.32 LAB L100.1300 12.0-15.0 g/dl Normal HGB 12.3 LAB L100.1400 37-47 % Normal HCT 38.9 LAB L100.1500 81-99 fL Normal MCV 90.0 LAB L100.1600 27.0-32.0 pg Normal MCH 28.5 LAB L100.1700 32-36 g/gl Low MCHC 31.6 LAB L100.1810 11.6-14.6 % Normal RDW CV 13.3 LAB L100.1820 35.1-43.9 fl High RDW SD 44.2 LAB L100.1900 150-450 K/mm3 Normal PLT 259 LAB L100.2000 6.2-12.0 fl Normal MPV 10.1 LAB L100.2100 47-70 % Normal NEUT% 62.4 LAB L100.2200 19-41 % Normal LY% 22.1 LAB L100.2300 0-10 % Normal MONO% 8.3 LAB L100.2400 0-5 % High EO% 5.2 LAB L100.2500 0-1 % High BASO% 1.7 LAB L100.2550 0.0-0.9 % Normal IM GRAN % 0.300 Result Comment: IG% - Immature Granulocytes (promyelocytes, myelocytes and metamyelocytes) > 1% indicates that a LEFT SHIFT is Present. LAB L100.2620 2.0-7.7 X10 3/uL Normal Absolute Neut 4.5 LAB L100.2720 0.83-4.51 X10 3/ul Normal Absolute Lymph 1.60 Performed By: #### L100.0100 #### [facility] [address] [place], [address] IRON+IRON BINDING Collected: 03/24/2018 Status: F [facility] 10:18 AM [facility] REPOSITORY TYPE CODE TESTS RESULT OUT OF RANGE REFERENCE UNITS LAB L503.6075 250-450 ug/dL TIBC Normal 344 LAB L503.6150 50-170 ug/dL IRON Normal 60 LAB L503.6250 15.0-55.0 % IRON Normal SATURATION 17.4 Performed By: #### L503.6030, L503.6550 #### [facility] [address] [place], [place], [address] FERRITIN Collected: 03/24/2018 Status: F Source: [place] 10:18 AM [facility] REPOSITORY TYPE CODE TESTS RESULT OUT OF RANGE REFERENCE UNITS LAB L503.6550 8-252 ng/mL Normal FERRITIN 60 Performed By: #### L503.6030, L503.6550 #### [facility] [address] [place], [address] PULMONARY VISIT REPORT Observed: 03/24/2018 Status: F Source: [place] 10:07 AM [facility] REPOSITORY [facility] [place] [address] [place], [place] [address] OFFICE VISIT Date of Service: 03/24/18 MR#: [id number] Acct: [id number] Name: ANA HILTON Rep #: [id number] : 1950 Provider: Jessica King Age/Sex: 67/F Location: [facility] [place] Status: Signed Assessment AND Plan 1. Obstructive sleep apnea G47.33 Plan Improving, however the patient does wake up multiple times per night and has some noted leaks on her compliance report. Sending her to Pap education to evaluate mask fit as well as to see if they can help her with the temperature/dryness of the air. She was then follow-up with Dr. Zhang in approximately 4-6 weeks to evaluate changes made and patient's response. She has been encouraged to contact the office with any new or worsening symptoms in the meantime. 2. Pulmonary hypertension I27.20 Plan Stable. No additional testing at this time. Follow-up with Dr. Zhang in 4-6 weeks. If symptoms worsen consider PFT or pulmonary stress test. 3. Restless legs syndrome G25.81 Plan Elevated PLMS from sleep study, noted to be average of 1.9 events per hour. It is unclear if this is what is awakening the patient throughout the night. We will draw lab work to rule out anemia. Consider treating with Requip or Mirapex if anemia is ruled out and symptoms continue. Reviewed good sleep hygiene with the patient, she could not identify any areas that she needed to improve upon. Encourage the patient to try [id number] melatonin 1-3 mg 15 minutes prior to bedtime. Also reviewed directions for melatonin. Follow-up with Dr. Zhang in 4-6 weeks to evaluate her response to testing, treatment and to further develop a plan. Plan Detail Other Orders Orders: Follow Up 1 Month (DMB) HPI HPI Comments Details: This is a 67 year old F, here to follow up for sleep apnea. She is ambulatory and currently on room air. She continues to experience shortness of breath on exertion, this has not changed since her last office visit. She does report some improvement in her lower leg edema. She denies any cough, sputum production or hemoptysis. She denies any wheezing, chest tightness, chest pain or palpitations. he is not napping. She does report waking up several times throughout the night, she estimates probably 3-4 times, looks at the clock and then goes back to sleep. She does report feeling that the heat is warm and dry, she does have the temperature turned completely down. She has never tried melatonin, reports that she does not want to try any sleep aid. She has never been diagnosed with restless legs or anemia. Current use of pressure support therapy is on average of 4.5 hours per night with current settings of 8 cmH2O. ANA denies any daytime somnolence, nocturia, snoring through the mask, or morning headaches, but is experiencing dry mouth in the morning, and difficulty with mask leaks. ANA reports feeling rested in the morning and is benefitting from current therapy. Compliance report was reviewed and shows 100% compliance, AHI is controlled at an average of 2.9 events per hour and leaks do not appear to be consistent problem. 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 [employer] Required: No DME Vendor: [employer] Accompanied by: Self Allergies codeine Adverse Reaction (Verified 03/24/18 09:23) Unknown naproxen sodium [From Aleve] Adverse Reaction (Verified 03/24/18 09:23) Shortness of breath Medications Aspirin [Aspirin, Baby] 81 mg PO DAILY@0800 #30 tab.chew 12/25/17 [Rx Confirmed 03/24/18] atorvastatin 20 mg tablet 20 mg PO QHS #90 tab 01/15/18 [Rx Confirmed 03/24/18] carvedilol 6.25 mg tablet 6.25 mg PO BID #180 tab 01/15/18 [Rx Confirmed 03/24/18] furosemide 40 mg tablet 40 mg PO DAILY #90 tab 01/15/18 [Rx Confirmed 03/24/18] losartan 50 mg tablet 50 mg PO DAILY #90 tab 01/15/18 [Rx Confirmed 03/24/18] potassium chloride ER 10 mEq tablet,extended release(part/cryst) 10 meq PO DAILYCM #90 tab 01/15/18 [Rx Confirmed 03/24/18] omeprazole 40 mg capsule,delayed release 40 mg PO DAILY cap 03/24/18 [History Confirmed 03/24/18] [facility] Medical History GERD (gastroesophageal reflux disease) (Chronic) Thyroid nodule (Chronic) Pulmonary hypertension (Chronic) Atherosclerotic heart disease of [place] coronary artery without angina pectoris (Chronic) Obstructive sleep apnea (Chronic) Nonrheumatic aortic (valve) stenosis (Chronic) Shortness of breath (Acute) Chest heaviness (Acute) Chest pain (Acute) Surgical History History of left heart catheterization (Chronic 12/25/17) Family History Mother Cancer Father Heart disease Brother Hypertension Myocardial infarction Social History Smoking Status: Former smoker how long ago did patient quit smokin, 1ppd second hand exposure: Yes Review of Systems Const CONSTITUTIONAL: Negative anorexia, body ache, chills, daytime sleepiness, fever(s), night sweats, oral thrush, stops breathing during sleep, weight loss, sleeping in chair, fatigue, weight loss, weight gain, frequent colds, seasonal allergies, other, headache(s) or orthopnea EETM Ear Nose Throat Mouth: Positive hearing normal; negative hard of hearing, hoarseness, dry mouth in morning, change in vision, itchy eyes, eye pain, swallowing Difficulty, ear pain, nose bleed, headache(s), mouth pain, nasal congestion, nasal discharge, post nasal drip, sinus pain, sinus pressure, sore throat or other Cardio Cardiovascular: Positive edema Location: lower extremity and murmur; negative chest pain, chest pain at rest, chest pain with activity, irregular heart rhythm, shortness of breath when lying down, palpitations or other Resp Respiratory: Positive as per HPI and shortness of breath shortness of breath: Positive with activity; negative pain with cough, wheezing, chest congestion, cough, chest tightness, pain on inspiration, inhalers, increase use of rescue inhalers, snoring, apnea or other Gastro Gastrointestional: Negative bloody stools, change in appetite, difficulty swallowing, reflux, hematemesis, melena stool, loose stool, constipation or other Genitourinary: Negative blood in urine, nocturia, pain with urination or other Musc Musculoskeletal: Negative body pain, back pain, neck pain or other Skin/Breast Skin/Breast: Negative dry skin, itching, rash, unusual bruising, breast lump or other Neuro Neurological: Negative restless legs, confusion, weakness or other Psych Psychocological: Negative abnormal sleep pattern, anxiety, thoughts of hurting self/others, hopelessness or other Lymph Lymphatic: Negative easy bleeding, easy bruising, swollen lymph nodes or other Exam Const Constitutional: Positive conversant, cooperative, in no acute respiratory distress, well developed, well nourished, good hygiene and obese Head Head: Positive normocephalic and atraumatic; negative cyanosis of lips/distal nose Eyes Eye: Positive clear conjunctiva; negative nystagmus or scleral abnormality Ears Ear: Positive hearing normal and external ears normal; negative hard of hearing Nose Nose: Positive external nose normal; negative epistaxis Mouth Mouth: Positive oral mucosae normal and posterior oropharynx is adequate; negative no lesions or post nasal drip Mallampati Score: II: Mallampati Score Neck Neck: Positive normal visual inspection, trachea midline and thick neck; negative lymphadenopathy Chest Wall Chest: Positive symmetric chest movement and normal inspection of the chest Normal AP diameter. Resp lung sounds: Positive clear to auscultation, good air exchange, normal expiratory time and normal respiratory effort; negative wheezes, rhonchi or rales Cardio Cardiac: Positive regular rate, regular rhythm, S1 normal, S2 normal and murmur murmur: Positive systolic, RUSB and LUSB; negative rub or gallop GI GI: Positive obese Soft without distention Genitourinary: Positive deferred Musc Musculoskeletal: Positive steady gait Skin Pulmonary Skin Exam: Positive intact; negative lesion, ulcers, dermal atrophy or rash Pulses Pulse: Yes Pedal pulses present: Extremities Extremities: No clubbing, No cyanosis, Yes edema Location: lower extremity location: Bilateral pitting +1 Neuro Neurologic: Yes conversant, Yes no focal neuro deficits, Yes normal concentration, Yes understands questions, Yes cooperative, Yes normal cognition, Yes normal coordination, No tremor Lymph Lymphatic: No lymphadenopathy, No tenderness, No cervical adenopathy Psych Appearance: Positive grossly normal, well kempt and eye contact Mental Status: Positive mental status grossly normal Mood: Positive congruent mood Affect: Positive normal affect Coding Level of Care Code Off vis,est,level 4 Diagnoses Obstructive sleep apnea G47.33 Pulmonary hypertension I27.20 Restless legs syndrome G25.81 03/24/18 1007 <Electronically signed by Jessica NETTLES> Date Jessica NETTLES Cosigner Signature: Date (if applicable) CC: Vani Menard MD PULMONARY VISIT REPORT Observed: 02/10/2018 Status: F Source: [place] 11:12 AM [facility] REPOSITORY [facility] [place] [address] [place] [address] OFFICE VISIT Date of Service: 02/10/18 MR#: [id number] Acct: [id number] Name: ANA HILTON Calvin Rep #: [id number] : 1950 Provider: Preet Brown, D.O. Age/Sex: 67/F Location: [facility] [place] Status: Signed Assessment AND Plan 1. Obstructive sleep apnea G47.33 Plan The patient has newly diagnosed obstructive sleep apnea and recently completed a titration study, for which it was recommended that she be placed on nocturnal CPAP therapy with a pressure support of 8 cm of water. Orders for DME equipment have been placed. The patient will follow-up in 6 weeks for a [id number] office visit to assess compliance and response to therapy. 2. Shortness of breath R06.02 Plan Although the patient does have a prior smoking history, she reports that her exertional dyspnea is actually improving as she loses weight. Therefore, we will hold off on pursuing pulmonary function testing at this time. 3. Obesity E66.9 Plan The patient was encouraged to continue her attempts at continued weight loss. Plan Detail Follow Up 6 Weeks (CSM) HPI HPI Comments Details: The patient is a 67-year-old male who presents to the clinic today in follow-up from a hospitalization in November 2017. The patient was admitted to the hospital December 24 with a dyspnea on exertion and chest pressure, for which she was ruled out for ACS. The patient underwent a cardiac catheterization which demonstrated nonobstructive coronary arteries. During that hospitalization, the patient did undergo a CTA chest which revealed a mass within the right lobe of the thyroid gland without evidence for pulmonary embolism. No other parenchymal abnormalities were identified. The patient also has a history of obstructive sleep apnea, for which she was previously being followed by Dr. Watkins. Polysomnogram completed in November 2017 revealed an overall AHI of 19 events per hour. The patient just underwent a titration polysomnogram in December 2017, for which it was recommended that the patient be initiated on CPAP with a pressure support of 8 cm of water. The patient does have a relatively limited smoking history that includes 1 pack/day x 15 years, having quit completely 10 years ago. She does have some baseline exertional shortness of breath, which is actually improved in the setting of weight loss. The patient reports a recent intentional 15 pound weight loss. Patient does not currently utilize any inhalers at her baseline. She denies the presence of chest tightness, wheezing or cough. 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 She has resided in [place] her entire life. Intake Vital Signs02/10/18 Height 5 ft 02/10/18 Weight: 232 lb Intake Visit Reasons: Hospital FU NO CONSULTS Accompanied by: Self Allergies codeine Adverse Reaction (Verified 02/10/18 10:30) Unknown naproxen sodium [From Aleve] Adverse Reaction (Verified 02/10/18 10:30) Shortness of breath Medications Omeprazole [Prilosec] 40 mg PO DAILY 05/24/16 [History Confirmed 02/10/18] Aspirin [Aspirin, Baby] 81 mg PO DAILY@0800 #30 tab.chew 12/25/17 [Rx Confirmed 02/10/18] atorvastatin 20 mg tablet 20 mg PO QHS #90 tab 01/15/18 [Rx Confirmed 02/10/18] carvedilol 6.25 mg tablet 6.25 mg PO BID #180 tab 01/15/18 [Rx Confirmed 02/10/18] furosemide 40 mg tablet 40 mg PO DAILY #90 tab 01/15/18 [Rx Confirmed 02/10/18] losartan 50 mg tablet 50 mg PO DAILY #90 tab 01/15/18 [Rx Confirmed 02/10/18] potassium chloride ER 10 mEq tablet,extended release(part/cryst) 10 meq PO DAILYCM #90 tab 01/15/18 [Rx Confirmed 02/10/18] [facility] Medical History GERD (gastroesophageal reflux disease) (Chronic) Thyroid nodule (Chronic) Pulmonary hypertension (Chronic) Atherosclerotic heart disease [place] coronary artery without angina pectoris (Chronic) Obstructive sleep apnea (Chronic) Nonrheumatic aortic (valve) stenosis (Chronic) Shortness of breath (Acute) Chest heaviness (Acute) Chest pain (Acute) Surgical History History of left heart catheterization (Chronic 12/25/17) Family History Mother Cancer Father Heart disease Brother Hypertension Myocardial infarction Social History Smoking Status: Former smoker how long ago did patient quit smokin, 1ppd second hand exposure: Yes Review of Systems Const CONSTITUTIONAL: Positive fatigue and weight loss; negative anorexia, body ache, chills, daytime sleepiness, fever(s), night sweats, oral thrush, stops breathing during sleep, weight loss, sleeping in chair, weight gain, frequent colds, seasonal allergies, other, headache(s) or orthopnea EETM Ear Nose Throat Mouth: Positive hearing normal; negative hard of hearing, hoarseness, dry mouth in morning, change in vision, itchy eyes, eye pain, swallowing Difficulty, ear pain, nose bleed, headache(s), mouth pain, nasal congestion, nasal discharge, post nasal drip, sinus pain, sinus pressure, sore throat or other Cardio Cardiovascular: Positive edema Location: lower extremity Right/Left: Left, Right; negative chest pain, chest pain at rest, chest pain with activity, irregular heart rhythm, shortness of breath when lying down, palpitations, murmur or other Resp Respiratory: Positive as per HPI, shortness of breath shortness of breath: Positive with activity, snoring and apnea; negative pain with cough, wheezing, chest congestion, cough, chest tightness, pain on inspiration, inhalers, increase use of rescue inhalers or other Gastro Gastrointestional: Negative bloody stools, change in appetite, difficulty swallowing, reflux, hematemesis, melena stool, loose stool, constipation or other Genitourinary: Negative blood in urine, nocturia, pain with urination or other Musc Musculoskeletal: Negative body pain, back pain, neck pain or other Skin/Breast Skin/Breast: Negative dry skin, itching, rash, unusual bruising, breast lump or other Neuro Neurological: Negative restless legs, confusion, weakness or other Psych Psychocological: Negative abnormal sleep pattern, anxiety, thoughts of hurting self/others, hopelessness or other Lymph Lymphatic: Negative easy bleeding, easy bruising, swollen lymph nodes or other Exam Const Constitutional: Positive conversant, cooperative, in no acute respiratory distress, well developed, well nourished, good hygiene and obese Head Head: Positive normocephalic and atraumatic; negative cyanosis of lips/distal nose Eyes Eye: Positive clear conjunctiva; negative nystagmus or scleral abnormality Ears Ear: Positive hearing normal and external ears normal; negative hard of hearing Nose Nose: Positive external nose normal; negative epistaxis Mouth Mouth: Positive oral mucosae normal and posterior oropharynx is adequate; negative no lesions or post nasal drip Mallampati Score: II: Mallampati Score Neck Neck: Positive normal visual inspection and trachea midline; negative lymphadenopathy Chest Wall Chest: Positive symmetric chest movement Normal AP diameter. Resp lung sounds: Positive clear to auscultation and good air exchange; negative wheezes, rhonchi or rales Cardio Cardiac: Positive regular rate, regular rhythm, S1 normal and S2 normal; negative rub, gallop or murmur GI GI: Positive normal bowel sounds and obese Soft without distention Genitourinary: Positive deferred Musc Musculoskeletal: Positive steady gait Skin Pulmonary Skin Exam: Positive intact; negative lesion, ulcers, dermal atrophy or rash Pulses Pulse: Yes Pedal pulses present: Extremities Extremities: No clubbing, No cyanosis, No edema Neuro Neurologic: Yes conversant, Yes no focal neuro deficits, Yes cooperative Lymph Lymphatic: No lymphadenopathy Psych Appearance: Positive grossly normal Mental Status: Positive mental status grossly normal Mood: Positive congruent mood Affect: Positive normal affect Coding Level of Care Code Off vis,new,level 4 Diagnoses Obstructive sleep apnea G47.33 Shortness of breath R06.02 Obesity E66.9 02/10/18 1112 <Electronically signed by Preet Zhang DO> Date Preet Zhang DO Cosigner Signature: Date (if applicable) CC: Vani Menard MD US THYROID BIOPSY Observed: 02/03/2018 Status: F Source: [place] 11:52 AM [facility] REPOSITORY [facility] Imaging Services [address] [place] [address] US Thyroid Biopsy MR#: [id number] Acct: [id number] Name: ANA HILTON Rep #: [id number] : 1950 F 67 From: Jr Maddox MD PCP: Vani Menard MD Status: REG CLI Study: US Thyroid Biopsy Date of Exam: 02/03/18 Exam# [id number] Ordering Dr: Vani Menard MD PROCEDURE: ULTRASOUND GUIDED RIGHT THYROID FNA/BIOPSY. DATE: February 03, 2018 INDICATION: Female, 67 years old. Right thyroid nodule. PHYSICIAN: Jr Maddox M.D. MEDICATIONS: 2% lidocaine administered subcutaneously for local anesthesia. ACCESS SITE: Right - anterior approach. NEEDLE: 25-gauge FNA needle. SPECIMEN: Multiple FNA specimen collected and given to pathology. EBL: None. COMPLICATIONS: None immediate. PROCEDURE: The risks, benefits, and alternatives to the procedure were explained to the patient. The specific risk of hemorrhage requiring further treatment or intervention was detailed and accepted. Written informed consent was obtained. The patient was brought into the ultrasound room and placed in the supine position on the stretcher. An appropriate entry site was identified. The overlying skin was prepped and draped in the usual sterile fashion. 2% lidocaine was administered subcutaneously for local anesthesia. Under ultrasound guidance, a 25-gauge FNA needle was advanced into the lesion. Aspiration was performed and the needle was withdrawn. A total of 2 passes were performed with specimen collected and given to the pathologist who was present during the procedure. Hemostasis was achieved with manual compression. Repeat ultrasound images of the biopsy area was performed which demonstrated no gross bleeding or hematoma. An antibiotic ointment dressing was placed and the patient was given an icepack. The patient tolerated the procedure well without immediate complications. The patient was discharged in stable condition. US/US Thyroid Biopsy IMPRESSION: Successful ultrasound-guided right thyroid nodule FNA/biopsy, as described above. Electronically Signed: Jr Maddox MD at 14:28 EST Tel [phone], Service support , CC: Vani Menard MD Technical Writer And Editor: Signed ASP RADIOLOGY (FLUID) Observed: 02/03/2018 Status: F Source: [place] 12:00 AM [facility] REPOSITORY Patient: ANA HILTON : 1950 (67/F) Acct Num: [id number] Phys: Vani Menard MD Unit Num: [id number] Loc: US Specimen: [id number] Received: 02/03/18 - 7021 Spec Type: ASP OUT TISSUES 1 TISSUES: Thyroid gland, NOS COMMENT The specimen is evaluated at the time of FNA by Dr. Portillo. Immediate Evaluation = Follicular cells present. Adequate for evaluation. Correlation with clinical, radiologic findings and appropriate follow up are necessary. CYTOLOGY GROSS Received is 0.2 ml of bloody fluid labeled with the patient's name, and designated right thyroid nodule. Six imprints and five paps are made from the submitted fluid and the rest is added to CytoLyt for cell block preparation. Submitted for cytology study. / SJ:venus 02/03/18 TC:5 CPT: 90030, 48691, 59592 CYTOLOGY STUDY Slides are reviewed. DIAGNOSIS CYTOLOGY Right thyroid nodule, ultrasound-guided FNA (smears and cell block): Consistent with benign follicular nodule with focal cystic changes. Adequate for evaluation. SJ:venus 02/04/18 HEADER OPERATION: Ultrasound-guided right thyroid biopsy PRE-OP DIAGNOSIS: Right thyroid nodule TISSUE SUBMITTED: Ultrasound-guided right thyroid nodule biopsy Signed David Portillo 02/04/18 <signature on file> Performed By: #### PASPIG #### [facility] [address] [place], [address] THYROID Observed: 01/13/2018 Status: F Source: [place] 10:07 AM [facility] REPOSITORY [facility] Imaging Services [address] [place] [address] Thyroid MR#: [id number] Acct: [id number] Name: ANA HILTON Rep #: [id number] : 1950 F 67 From: Jeferson Fuentes MD PCP: Vani Menard MD Status: REG CLI Study: Thyroid Date of Exam: 01/13/18 Exam# [id number] Ordering Dr: Vani Menard MD HISTORY: ENLARGED THYROID TECHNIQUE: Lewis scale and color doppler imaging was performed of the thyroid gland. COMPARISON: CTA chest 12/24/2017 FINDINGS: As correlated with recent CT exam, asymmetric enlargement of the right thyroid lobe with a small element of substernal extension on the right. The gland measurements estimated as follows: Right lobe: 5 x 2.7 x 2.8 cm Left lobe: 3.5 x 1.7 x 2.3 cm Thyroid isthmus 0.3 cm Lower pole right thyroid lobe dominant nodule which is solid, circumscribed, and mildly complex measuring 2.9 x 2.9 x 2.8 cm. Associated vascular flow within the nodule. The left thyroid lobe shows homogenous echotexture without discrete or dominant nodule. US/Thyroid IMPRESSION: 1. Asymmetric enlargement of the right thyroid lobe secondary to a dominant 2.9 cm solid nodule. 2. In the absence of prior comparison exams, ultrasound-guided FNA biopsy on the right should be considered at 0002 Reported and signed by: Jeferson Fuentes MD Electronically Signed: Jeferson Fuentes, at 0:00 EST Tel , Service support , CC: Vani Menard MD Technical Writer And Editor: Signed CARDIOLOGY VISIT Observed: 01/05/2018 Status: F Source: [place] REPORT 1:25 PM [facility] REPOSITORY [facility] [address] [place] [address]. [address] [place] [address] OFFICE VISIT Date of Service: 01/05/18 MR#: [id number] Acct: [id number] Name: ANA HILTON Rep #: [id number] : 1950 Provider: Luis Clemons MD Age/Sex: 67/F Location: [facility] Status: Signed HPI HPI Chief Complaint: Routine f/u Details: The patient is a 67 year old F, morbidly obese, nondiabetic, previous smoker who quit around 10 or 12 years ago after approximately 14-rxdm-rrot smoking history, no previous known COPD and recently evaluated for obstructive sleep apnea with a sleep study this past Thursday. Interestingly during the sleep study evaluation while she was on oxygen at night her breathing was much better. The patient states that over the last several weeks to months she has had progressively worsening dyspnea on exertion, shortness of breath, decreased exercise capacity and decreased energy level. This worsened to the point where she has developed substernal chest pressure which is nonradiating with no associated nausea or vomiting, mostly at rest but occasionally with exertion. In addition she has had chronic lower extremity edema that oscillates on a daily basis for the last several years and is recently gotten worse. The patient underwent a cardiac evaluation including an echocardiogram on 11/23/17 which showed normal LV function, RVSP of approximately 40 mmHg, and mild atherosclerotic thickening. Patient reports that she had a non-walking nuclear stress test on 06/16/16 which was negative for inducible ischemia. She has never had a catheterization. On further history, she has a significant positive family history of coronary disease and her younger brother who of a myocardial infarction at age 53, and a father and mother who both have coronary artery disease at 68 and 69 respectively. The patient recently underwent a sleep study per Dr. Watkins, which was reportedly positive for obstructive sleep apnea. She has not yet been fitted for her CPAP mask. The patient came to [facility] ER on 12/24/17 for extreme dyspnea on exertion and shortness of breath as well as her chest pressure. Her EKG showed normal sinus rhythm, normal axis, normal intervals, no acute changes. 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 In 12/25/17 she underwent a left heart catheterization which demonstrated minimal nonobstructive coronary artery disease and normal LV function and moderate pulmonary hypertension by right heart catheter is patient. Her medicines were adjusted and she was discharged. She is now here in follow-up, and feels much better. She has completed the first of 2 parts of her sleep study and has the second part pending this Thursday. In our office today her blood pressure is 110/60, pulse is 72 and regular. Physical exam is as below. Her lipids as of 12/24/17 show an LDL of 126 and an HDL of 44. 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: No Is patient in pain?: No Allergies codeine Adverse Reaction (Verified 12/30/17 18:11) Unknown naproxen sodium [From Aleve] Adverse Reaction (Verified 12/30/17 18:11) Shortness of breath Medications Omeprazole [Prilosec] 40 mg PO DAILY 05/24/16 [History Confirmed 12/30/17] Aspirin [Aspirin, Baby] 81 mg PO DAILY@0800 #30 tab.chew 12/25/17 [Rx Confirmed 12/30/17] Carvedilol [Coreg (Beta Joslyn)] 6.25 mg PO BID #60 tab 12/25/17 [Rx Confirmed 12/30/17] Furosemide [Lasix] 40 mg PO DAILY #30 tab 12/25/17 [Rx Confirmed 12/30/17] Losartan Potassium [Cozaar] 50 mg PO DAILY #30 tab 12/25/17 [Rx Confirmed 12/30/17] Potassium Chloride [K-Dur] 10 meq PO DAILYCM #30 tab 12/25/17 [Rx Confirmed 12/30/17] Atorvastatin Calcium [Lipitor] 20 mg PO QHS #30 tab 12/26/17 [Rx Confirmed 12/30/17] PFSH Medical History GERD (gastroesophageal reflux disease) (Chronic) Thyroid nodule (Chronic) Pulmonary hypertension (Chronic) Atherosclerotic heart disease of [place] coronary artery without angina pectoris (Chronic) Obstructive sleep apnea (Chronic) Nonrheumatic aortic (valve) stenosis (Chronic) Shortness of breath (Acute) Chest heaviness (Acute) Chest pain (Acute) Surgical History History of left heart catheterization (Chronic 12/25/17) Social History Smoking Status: Former smoker ROS Const Const: Positive for weight loss (Has been actively trying and is down from 245 to 232) and other (In PCU 12/25/17 for chest pressure, sob: cath. Pulm htn. Feels well now); negative for fatigue, weakness, body ache, fever(s), headache(s), chills, frequent falls, night sweats, daytime sleepiness, difficulty sleeping, excessive sweating, weight gain, increased appetite, poor appetite or anorexia Eyes Eyes: Negative for blind spots, loss of peripheral vision, transient loss of vision, blurry vision, change in vision, double vision, floaters, tunnel vision or other ENT ENT: Negative for dizziness, hearing loss, tinnitus, Nosebleed/epistaxis, balance problems, post nasal drip, lip swelling, tongue swelling, bleeding gums, hoarseness, neck pain, dry mouth, other or headache(s) Cardio Chest Pain: No Palpitations: No Edema: Bilateral (Chronic but pt states 75% better.) Muscle aches with walking: None Resp Respiratory: Positive for SOB with activity (It has greatly improved.); negative for SOB at rest, SOB orthopnea\SOB lying down, Cough, Coughing up blood/hemoptysis, chest congestion, pain on inspiration, snoring, stridor, wheezing, crackles, paroxysmal nocturnal dyspnea or other GI GI: Negative nausea, vomiting, heartburn, constipation, belching, bloating, cramping, vomiting blood/hematemesis, bright, red blood in stools, black,tarry stools, loose stools, Difficulty Swallowing or other : Negative for hematuria, frequent nighttime urination/ nocturia, erectile dysfunction or abnormal vaginal bleeding Musc Musc: Negative for balance problems, muscle aches/ myalgia, muscle weakness or joint pain Skin Skin: Negative redness, non-healing lesions, rash, unusual bruising, skin ulcer, wounds, jaundice or other Neuro Neuro: Negative for blurry vision, double vision, dizziness, lightheadedness, near syncope, syncope, orthostatic symptoms, confusion, memory loss, restless legs, vertigo, seizures, lack of coordination, other, weakness, headache(s) or frequent falls Alex Hematologic/Lymphatic: Negative for easy bleeding, easy bruising, enlarged lymph nodes or other Endo Endo: Negative for cold intolerance, heat intolerance, flushing, increased thirst/drinking, increased hunger, hair loss, hair growth, other, fatigue or excessive sweating Psych Psych: Negative for anxiety, depression, thoughts of harming anyone, thoughts of harming yourself, visual hallucinations, panic attacks or audible hallucinations Allergy Allergy/Immunology: Negative for lip swelling, Negative for tongue swelling, Negative for rash, Negative for throat swelling, Negative for hives Cardiology Exam Const Appearance: cooperative, healthy appearing and no acute distress Nutritional Appearance: well nourished Orientation: alert, oriented x3 and oriented to person Head Head: normal to inspection, atraumatic and normocephalic Nose: external nose normal Face and Sinus: face symmetric Mouth: oral mucosae normal Eyes General: appearance normal, both eyes and all related structures Eyelids: eyelids normal Conjunctivae: conjunctivae normal Pupils: PERRL and normal by confrontation EOM: EOM intact bilaterally Neck Neck: normal visual inspection and full ROM Carotids: normal carotid upstroke Chest Chest inspection: normal inspection of the chest Auscultation: Bilateral: Clear to Auscultation Cardio Palpation: normal PMI Rate: regular rate Rhythm: regular rhythm Heart sounds: S1 normal and S2 normal GI GI: normal to inspection, no hepatosplenomegaly and bowel sounds present Neuro General: alert, oriented x3, awake, CN's II-XI intact bilaterally and moves all extremities Skin Skin: no rashes or lesions noted Extremities Pulses: Normal: Right Femoral Pulse, Left Femoral Pulse, Right Dorsalis Pedis Pulse, Left Dorsalis Pedis Pulse, Right Posterior Tibial Pulse, Left Posterior Tibial Pulse, Right Radial Pulse, Left Radial Pulse Lower Extremity Edema: None: Bilateral Psych Psychological: normal affect Assessment AND Plan 1. Atherosclerotic heart disease of [place] coronary artery without angina pectoris I25.10 30% stenosis in CX, all other coronaries normal per cath 12/25/17 Plan 1. Coronary artery disease: Patient has minimal nonobstructive coronary artery disease and was found to have at least moderate pulmonary hypertension by right heart catheterization. Awaiting conclusion of her sleep study, however she has obstructive sleep apnea I believe she would benefit from CPAP therapy. Would recommend that she continue her current antihypertensive medications as she feels much better. Recommend continuing baby aspirin, Coreg, Lasix and losartan as well as potassium. We will attempt to enroll her in a rehab to assist with her pulmonary hypertension whether or not she has obstructive sleep apnea. In addition we will obtain a repeat lipid profile in 4 weeks time. Her LDL should be less than 70. Continue Lipitor. Orders Orders: 2. Pulmonary hypertension I27.20 moderate per [facility] 12/25/2017 Plan 2. Pulmonary hypertension: Patient was found to have moderate pulmonary hypertension by right heart catheterization. She is doing very well with diuretic and antihypertensive therapy. We will attempt to get her into pulmonary rehab. If she has THANH, she will require CPAP or BiPAP therapy going forward and we would refer her to pulmonary with Dr. Zhang or Dr. Emanuel. 3. Return office in 6 months. This note was generated using a voice recognition system and there may be incorrect words, spelling or punctuation that were not noted when reviewing the office note prior to saving. Orders Referrals: Plan Detail Other Orders Referrals: Follow Up +6M (Clemons) Coding Level of Care Code Off vis,est,level 3 Diagnoses Atherosclerotic heart disease of [place] coronary artery without angina pectoris I25.10 Pulmonary hypertension I27.20 Coding Level of Care Code Off vis,est,level 3 Diagnoses Atherosclerotic heart disease of [place] coronary artery without angina pectoris I25.10 Pulmonary hypertension I27.20 01/05/18 1325 <Electronically signed by Luis Clemons MD> Date Luis Clemons MD Cosigner Signature: Date (if applicable) CC: Vani Menard MD 12 LEAD ELECTROCARDIOGRAM Observed: 12/29/2017 Status: F Source: [place] 12:47 PM [facility] REPOSITORY [facility] Cardiovascular Services [address] [place] [address] 12 Lead EKG 12/24/17 1637 MR#: [id number] Acct: [id number] Name: ANA HILTON Rep #: [id number] : 1950 67 From: Luis Clemons MD Attending Dr: Danny Batista MD Status: DIS DIYA Ordering Dr: Joana Landaverde MD Date: 12/24/17 Location: [facility] Sex: F C Admitted: 12/24/17 Test Reason : ADMISSION Blood Pressure : / mmHG Vent. Rate : 059 BPM Atrial Rate : 059 BPM P-R Int : 162 ms QRS Dur : 078 ms QT Int : 430 ms P-R-T Axes : 030 044 038 degrees QTc Int : 425 ms Sinus bradycardia Otherwise normal ECG When compared with ECG of 24-DEC-2017 12:21, MANUAL COMPARISON REQUIRED, DATA IS UNCONFIRMED Confirmed by LUIS CLEMONS ([id number]), editor managing newspaper NELLY MENARD ([id number]) on 12/29/2017 12:47:27 PM Referred By: JUDY Confirmed By:LUIS CLEMONS 12/29/17 1247 Date Luis Clemons MD CC: Vani Menard MD; Joana Landaverde MD; Danny Batista MD Signed 12 LEAD ELECTROCARDIOGRAM Observed: 12/29/2017 Status: F Source: [place] 12:46 PM [facility] REPOSITORY [facility] Cardiovascular Services [address] [place] [address] 12 Lead EKG 12/25/17 0510 MR#: [id number] Acct: [id number] Name: ANA HILTON Rep #: [id number] : 1950 67 From: Luis Clemons MD Attending Dr: Danny Batista MD Status: DIS DIYA Ordering Dr: Luis Clemons MD Date: 12/25/17 Location: [facility] Sex: F C Admitted: 12/24/17 Test Reason : AM Blood Pressure : / mmHG Vent. Rate : 064 BPM Atrial Rate : 064 BPM P-R Int : 160 ms QRS Dur : 080 ms QT Int : 422 ms P-R-T Axes : 037 055 026 degrees QTc Int : 435 ms Normal sinus rhythm Normal ECG When compared with ECG of 24-DEC-2017 16:37, MANUAL COMPARISON REQUIRED, DATA IS UNCONFIRMED Confirmed by LUIS CLEMONS ([id number]), editor managing newspaper NELLY MENARD ([id number]) on 12/29/2017 12:46:25 PM Referred By: JUDY Confirmed By:LUIS CLEMONS 12/29/17 1246 Date Luis Clemons MD CC: Luis Clemons MD; Vani Menard MD; Danny Batista MD Signed 12 LEAD ELECTROCARDIOGRAM Observed: 12/29/2017 Status: F Source: [place] 8:59 AM [facility] REPOSITORY [facility] Cardiovascular Services [address] [place] [address] 12 Lead EKG 12/24/17 1221 MR#: [id number] Acct: [id number] Name: AAN HILTON Rep #: [id number] : 1950 67 From: Luis Clemons MD Attending Dr: Danny Batista MD Status: DIS DIYA Ordering Dr: Luis Winkler DO Date: 12/24/17 Location: [facility] Sex: F C Admitted: 12/24/17 Test Reason : Blood Pressure : / mmHG Vent. Rate : 070 BPM Atrial Rate : 070 BPM P-R Int : 142 ms QRS Dur : 072 ms QT Int : 400 ms P-R-T Axes : 051 048 035 degrees QTc Int : 432 ms Normal sinus rhythm Normal ECG Confirmed by LUIS CLEMONS ([id number]), editor managing newspaper NELLY MENARD (56) on 12/29/2017 8:59:33 AM Referred By: LANCE Confirmed By:LUIS CLEMONS 12/29/17 0859 Date Luis Clemons MD CC: Luis Winkler DO; Vani Menard MD; Danny Batista MD Signed DISCHARGE SUMMARY Observed: 12/26/2017 Status: F Source: [place] 2:26 PM [facility] REPOSITORY [facility] Medical Records Department [address] [place] [address] Discharge Summary 12/26/17 1230 MR#: [id number] Acct: [id number] Name: ANA HILTON Rep #: [id number] : 1950 67 From: Radha Molina MEDICAL DIRECTOR-C PCP: Vani Menard MD Status: DIS DIYA Y Location: [place] [id number] <Radha Molina - Last Filed: 12/26/17 12:35> Discharge Date and Diagnosis Date of Admission: 12/24/17 Date of Discharge: 12/26/17 - Primary Discharge Diagnosis 1. Dyspnea on exertion, chest pressure-ACS rule out. 2. Hypertension 3. Obstructive sleep apnea 4. Thyroid mass 5. GERD Hospital Course and Treatment Imaging Results: Diagnostic Data Chest X-Ray 12/24/17 12:42 IMPRESSION: No acute abnormality is seen. Electronically Signed: Jr Maddox MD at 13:32 EDT Tel [phone], Service support , Chest CTA 12/24/17 13:38 IMPRESSION: Normal CTA chest examination, without a demonstrated pulmonary embolism or arterial dissection. Electronically Signed: Jr Maddox MD at 15:01 EDT Tel [phone], Service support , Dr. Clemons- Cardiology Operations: None Procedures: Cardiac catheterization Summary of Care Provided: The patient is a 67 year old F admitted 12/24/2017 due to worsening shortness of breath and chest heaviness. 1. Dyspnea on exertion, chest pressure-ACS ruled out. Patient underwent cardiac catheterization which demonstrated nonobstructive coronary arteries. Moderate pulmonary hypertension. Cardiology recommending aspirin indefinitely. Home blood pressure regimen adjusted. Home Lasix regimen increased to 40 mg daily. Lisinopril changed to losartan 50 mg daily. Started on Cozaar 6.25 mg twice daily. Patient to check blood pressure twice daily and document findings for a follow-up appointment with primary care physician and cardiology. Patient has upcoming appointment with Dr. Clemons as outpatient. 2. Hypertension-improved. Continue Lasix, carvedilol, losartan regimen. Further outpatient monitoring as noted above. 3. Obstructive sleep apnea-recently diagnosed. To have titration study. Wishes to transition from Dr. Watkins to Dr. Emanuel. Notified office. Pulmonary medicine to contact primary care physician for records and call patient for appointment. 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 TSH/free T4 normal. Recommend outpatient follow-up with endocrinology, PCP referral. 5. GERD-continue PPI. General: Alert, Oriented x3, Cooperative, No apparent distress HEENT: Atraumatic, PERRLA, EOMI, Normocephalic Neck: Supple, No JVD, Negative Carotid Bruits Lungs: Clear to auscultation, Diminished Cardiovascular: Regular rate, Regular Rhythm, Normal S1, Normal S2, No murmurs Abdomen: Bowel Sounds Present, Soft, Non Tender, Non-Distended, Obese Extremities: No clubbing, No cyanosis, Capillary Refill Less than 3 Seconds, - - Chronic lymphedema and stasis dermatitis of the right lower extremity Skin: No rashes, No breakdown Musculoskeletal: No Tenderness to Palpation of Joints or Extremities Neurological: Cranial nerves II-XII grossly intact, Neuro grossly intact Psych/Mental Status: Normal Affect, Appropriate Patient seen exam prior to discharge. Physical assessment as noted above. Patient stable for discharge home with the follow-up her conditions as noted above. This patient was seen by YOON Lucio under the supervision of Dr. Batista. - Physical Exam Vital Signs Temp Pulse Resp BP Pulse Ox 98.3 F 68 16 150/62 H 98 12/26/17 09:11 12/26/17 09:11 12/26/17 09:11 12/26/17 09:11 12/26/17 09:11 Oxygen Delivery Method Room Air Weight: 244 lb 14.937 oz Body Mass Index (BMI) 47.8 Intake and Output for Last 24 Hours Intake Total 600 / 600 890 / 890 Balance 600 / 600 890 / 890 Laboratory Tests Past 24 Hrs Specimen Type MARILEE MARILEE ART pH 7.44 Bicarbonate Actual 25.6 POC Total CO2 27 Base Excess 1 O2 Saturation 95 ABG pCO2 38.0 Discharge Diet: Low fat/ Low Cholesterol Discharge Activity: Return to Normal Activity Call your doctor if you observe: Shortness of breath, Fainting spells, Chest pain Home Medications: Medications to take at Discharge Omeprazole [Prilosec] 40 mg PO DAILY 05/24/16 Aspirin [Aspirin, Baby] 81 mg PO DAILY@0800 #30 tab.chew 12/25/17 Carvedilol [Coreg (Beta Joslyn)] 6.25 mg PO BID #60 tablet 12/25/17 Furosemide [Lasix] 40 mg PO DAILY #30 tablet 12/25/17 Losartan Potassium [Cozaar] 50 mg PO DAILY #30 tablet 12/25/17 Potassium Chloride [K-Dur] 10 meq PO DAILYCM #30 tablet 12/25/17 Atorvastatin Calcium [Lipitor] 20 mg PO QHS #30 tablet 12/26/17 Following Prescrptions Were Given to Patient: Aspirin [Aspirin, Baby] 81 mg PO DAILY@0800 #30 tab.chew Atorvastatin Calcium [Lipitor] 20 mg PO QHS #30 tablet Furosemide [Lasix] 40 mg PO DAILY #30 tablet Losartan Potassium [Cozaar] 50 mg PO DAILY #30 tablet Potassium Chloride [K-Dur] 10 meq PO DAILYCM #30 tablet Carvedilol [Coreg (Beta Joslyn)] 6.25 mg PO BID #60 tablet Primary Care Physician: Vani Menard MD [Primary Care Provider] - Please follow up with your Primary Care Physician in: 1 Week Please Follow Up With: Faizan Emanuel MD When: Office to call for appt. Please Follow Up With: Luis Clemons MD When: As scheduled Disposition: Home Minutes spent on discharge:: 35 Patient Condition:: Stable Medical Necessity - Tobacco Use Smoking Status: Former smoker Tobacco Use: Cigarettes Meaningful Use Info Meaningful Use Diagnoses (Choose all that apply): None applicable <Danny Batista F - Last Filed: 12/26/17 14:25> Hospital Course and Treatment Summary of Care Provided: The patient is a 67 year old F [] - Physical Exam Vital Signs Temp Pulse Resp BP Pulse Ox 98.3 F 68 16 150/62 H 98 12/26/17 09:11 12/26/17 09:11 12/26/17 09:11 12/26/17 09:11 12/26/17 09:11 Oxygen Delivery Method Room Air Weight: 244 lb 14.937 oz Body Mass Index (BMI) 47.8 Intake and Output for Last 24 Hours Intake Total 600 / 600 890 / 890 Balance 600 / 600 890 / 890 Code Visit Addendum: Dr. Batista I personally examined the patient and reviewed the chart. I agree with the above. 67-year-old female with a history of hypertension, obstructive sleep apnea who presented with chest pain, chest heaviness and shortness of breath. On admission her troponin was less than 0.015 and her EKG was normal sinus. Given her symptoms and presentation cardiology performed a cardiac cath. She was found to have moderate pulmonary hypertension as well as severe systemic hypertension with a normal LV function with no significant coronary artery disease. She was continued on aspirin and she was started on Cozaar and Coreg as well as Lasix. She will need to follow-up with cardiology as well as pulmonology for adjustment of her CPAP. Also had his extensive discussions with her about weight loss. OBSV E AND M: 13739 Observation care discharge 12/26/17 1236 <Electronically signed by Radha NETTLES> Date Radha Molina MEDICAL DIRECTOR-C 12/26/17 1426<Electronically signed by Danny Batista MD> Cosigner Signature (if applicable): Date Danny Batista MD CC: YOON Molina; Vani Menard MD; Danny Batista MD Signed DISCHARGE INSTRUCTION Observed: 12/26/2017 Status: F Source: [place] 11:31 AM [facility] REPOSITORY [facility] Medical Records Department [address] [place] [id number] Instructions for Home/Discharge Instructions 12/26/17 1128 MR#: [id number] Acct: [id number] Name: ANA HILTON Rep #: [id number] : 1950 67 From: Radha NETTLES PCP: Vani Menard MD Status: ADM DIYA You will use the following diet at home:: Cardiac Discharge Activity: Return to Normal Activity Call your doctor if you observe: Shortness of breath, Fainting spells, Chest pain Allergies/Adverse Reactions: Allergies codeine Adverse Reaction (Verified 05/24/16 14:41) Unknown naproxen sodium [From Aleve] Adverse Reaction (Verified 05/24/16 14:41) Shortness of breath Medications to take at Discharge Omeprazole [Prilosec] 40 mg PO DAILY 05/24/16 Aspirin [Aspirin, Baby] 81 mg PO DAILY@0800 #30 tab.chew 12/25/17 Carvedilol [Coreg (Beta Joslyn)] 6.25 mg PO BID #60 tablet 12/25/17 Furosemide [Lasix] 40 mg PO DAILY #30 tablet 12/25/17 Losartan Potassium [Cozaar] 50 mg PO DAILY #30 tablet 12/25/17 Potassium Chloride [K-Dur] 10 meq PO DAILYCM #30 tablet 12/25/17 Atorvastatin Calcium [Lipitor] 20 mg PO QHS #30 tablet 12/26/17 The following prescriptions were given: Aspirin [Aspirin, Baby] 81 mg PO DAILY@0800 #30 tab.chew Atorvastatin Calcium [Lipitor] 20 mg PO QHS #30 tablet Furosemide [Lasix] 40 mg PO DAILY #30 tablet Losartan Potassium [Cozaar] 50 mg PO DAILY #30 tablet Potassium Chloride [K-Dur] 10 meq PO DAILYCM #30 tablet Carvedilol [Coreg (Beta Joslyn)] 6.25 mg PO BID #60 tablet Primary Care Physician: Vani Menard MD [Primary Care Provider] - Please follow up with your Primary Care Physician in: 1 Week Test Results: Test results from this visit will be discussed in further detail at your follow-up appointment, if applicable. Please Follow Up With: Faizan Emanuel MD When: Office to call for appt. Please Follow Up With: Luis Clemons MD When: Call for appt. Proposed Discharge Date: 12/26/17 12/26/17 1131 <Electronically signed by Radha Molina NP-C> Date Radha NETTLES CC: Vani Menard MD BLOOD GASES BY CPS Collected: 12/25/2017 Status: F Source: [place] 12:57 PM [facility] REPOSITORY TYPE CODE TESTS RESULT OUT OF RANGE REFERENCE UNITS LAB L9000.9990 Normal BLD GAS ART TYPE LAB L9001.1110 7.35-7.45 Normal pH - 7.44 I-STAT LAB L9001.1210 35-45 mmHg Normal pCO2 - 38.0 ISTAT LAB L9001.1310 75-100 mmHG Low PO2 74 I-STAT LAB L9001.2300 22-26 mmol/L Normal HCO3 25.6 ISTAT LAB L9001.2400 -2 to +2 mmol/L Normal BE ISTAT 1 LAB L9001.2415 mmol/L Normal TOTAL CO2 27 ISTAT LAB L9001.2425 95-99 % Normal SO2 ISTAT 95 Performed By: #### L9000.0800 #### [facility] Point of Care [address] [place] [address] VENOUS BLOOD GAS Collected: 12/25/2017 Status: F Source: [place] 12:53 PM [facility] REPOSITORY TYPE CODE TESTS RESULT OUT OF RANGE REFERENCE UNITS LAB L9000.9990 Normal BLD GAS MARILEE TYPE LAB L9002.1110 7.32-7.42 High VBGpH - 7.43 I-STAT LAB L9002.1212 41-51 mmHg Low VBG pCO2 38.5 - ISTA LAB L9002.1310 25-40 mmHg Normal VBG PO2 35 I-STAT LAB L9002.2300 22-26 mmol/L Normal VBG HCO3 26 ISTAT LAB L9002.2400 -1.0-3.5 mmol/L Normal VBG BE 2 ISTAT LAB L9002.2410 50-70 % Normal VBG SO2 70 ISTAT LAB L9002.2415 23-33 mmol/L Normal VBG O2 CT 27 ISTAT Performed By: #### L9000.0810 #### [facility] Point of Care [address] [place] [address] VENOUS BLOOD GAS Collected: 12/25/2017 Status: F Source: [place] 12:50 PM [facility] REPOSITORY TYPE CODE TESTS RESULT OUT OF RANGE REFERENCE UNITS LAB L9000.9990 Normal BLD GAS MARILEE TYPE LAB L9002.1110 7.32-7.42 High VBGpH - 7.43 I-STAT LAB L9002.1212 41-51 mmHg Low VBG pCO2 40.1 - ISTA LAB L9002.1310 25-40 mmHg Normal VBG PO2 35 I-STAT LAB L9002.2300 22-26 mmol/L Normal VBG HCO3 26 ISTAT LAB L9002.2400 -1.0-3.5 mmol/L Normal VBG BE 2 ISTAT LAB L9002.2410 50-70 % Normal VBG SO2 68 ISTAT LAB L9002.2415 23-33 mmol/L Normal VBG O2 CT 28 ISTAT Performed By: #### L9000.0810 #### [facility] Point of Care [address] [place], [place] [address] URINALYSIS, COMPLETE Collected: 12/25/2017 Status: F Source: [place] 6:30 AM [facility] REPOSITORY Order Comment: Order Date: 12/25/17 How was Urine Obtained? CLEAN CATCH TYPE CODE TESTS RESULT OUT OF RANGE REFERENCE UNITS LAB L400.3000 Yellow COLOR Normal Yellow LAB L400.3050 Clear Normal CLARITY Clear LAB L400.3200 Normal mg/dl Normal GLUCOSE, UR Normal LAB L400.3300 Negative mg/dL Normal BILIRUBIN URINE Negative LAB L400.3400 Negative mg/dl Normal KETONE UR Negative LAB L400.3465 1.002-1.030 Normal SP.GR. DIPSTX 1.025 LAB L400.3550 5.0 - 8.0 pH UR Normal 5.0 LAB L400.3600 Negative mg/dl High PROT 15 DIPSTX LAB L400.3700 Normal mg/dl Normal UROBILI Normal LAB L400.3750 Negative Normal NITRITE UR Negative LAB L400.3780 Negative /ul Normal OCCULT BLOOD-UR Negative LAB L400.3800 Negative /ul High LEUK ESTERASE 500 LAB L400.4050 0-5 /hpf WBC Normal 5-10 SEEN LAB L400.4100 0-5 /hpf 0 Normal RBC-UA SEEN LAB L400.4150 5-10 /hpf SQUAM Normal EPI 0-5 SEEN LAB L400.4300 None Seen /hpf Normal BACTERIA RARE LAB L400.4350 <or=2+ /hpf 0 Normal MUCUS, URINE SEEN Performed By: #### L400.0001 #### [facility] [address] [place], [place], [address] CBC W/DIFF, AUTOMATED Collected: 12/25/2017 Status: F Source: [place] 5:28 AM [facility] REPOSITORY TYPE CODE TESTS RESULT OUT OF RANGE REFERENCE UNITS LAB L100.1000 4.4-11.0 K/mm3 Normal WBC 6.0 LAB L100.1200 4.2-5.4 M/mm3 Low RBC 3.95 LAB L100.1300 12.0-15.0 g/dl Low HGB 11.4 LAB L100.1400 37-47 % Low HCT 35.2 LAB L100.1500 81-99 fL Normal MCV 89.1 LAB L100.1600 27.0-32.0 pg Normal MCH 28.9 LAB L100.1700 32-36 g/gl Normal MCHC 32.4 LAB L100.1810 11.6-14.6 % Normal RDW CV 13.6 LAB L100.1820 35.1-43.9 fl High RDW SD 44.3 LAB L100.1900 150-450 K/mm3 Normal PLT 237 LAB L100.2000 6.2-12.0 fl Normal MPV 10.1 LAB L100.2100 47-70 % Normal NEUT% 62.9 LAB L100.2200 19-41 % Normal LY% 20.3 LAB L100.2300 0-10 % High MONO% 11.1 LAB L100.2400 0-5 % Normal EO% 4.0 LAB L100.2500 0-1 % High BASO% 1.2 LAB L100.2550 0.0-0.9 % Normal IM GRAN % 0.500 Result Comment: IG% - Immature Granulocytes (promyelocytes, myelocytes and metamyelocytes) > 1% indicates that a LEFT SHIFT is Present. LAB L100.2620 2.0-7.7 X10 3/uL Normal Absolute Neut 3.7 LAB L100.2720 0.83-4.51 X10 3/ul Normal Absolute Lymph 1.21 Performed By: #### L100.0100 #### [facility] [address] [place], [address] BASIC METABOLIC Collected: 12/25/2017 Status: F Source: [place] PROFILE ([facility]) 5:28 AM [facility] REPOSITORY TYPE CODE TESTS RESULT OUT OF RANGE REFERENCE UNITS LAB L501.0100 74-106 mg/dL Normal GLU 103 Result Comment: Fasting Glucose result from 100 to 125 mg/dL suggests IMPAIRED HOMEOSTASIS per A.D.A. criteria. Please note revised GLUCOSE reference range effective 2017. LAB L501.1000 7-18 mg/dL Normal BUN 14 LAB L501.1100 0.55-1.02 mg/dL Normal CREAT,SERUM 0.76 Result Comment: The validity of the calculated GFR AND GFRAA in patients over 70 years has not been determined. Clinical correlation is essential. LAB L501.1110 >60 mL/min Normal EST GFR 81 Result Comment: Non- GFR Calc LAB L501.1115 >60 mL/min Normal EST GFR - AA 98 Result Comment: GFR Calc LAB L501.1255 ml/min Normal Estimated CRCL 53.01 LAB L501.1300 10-20 RATIO Normal BUN/CRE 18.4 LAB L501.2200 8.5-10 mg/dL Normal .1 CA 8.9 LAB L501.5300 136-14 mmol/L Normal 5 NA 142 LAB L501.5600 3.5-5. mmol/L Normal 1 K 3.9 LAB L501.5900 98-107 mmol/L Normal CL 107 LAB L501.6100 21.0-3 mmol/L Normal 2.0 CO2 30.0 LAB L501.6200 5-15 Normal GAP 5 Performed By: #### L500.2500 #### [facility] [address] [place], [address] PROTHROMBIN TIME W/INR Collected: 12/25/2017 Status: F Source: [place] 5:28 AM [facility] REPOSITORY TYPE CODE TESTS RESULT OUT OF RANGE REFERENCE UNITS LAB L300.4150 11.7-14.9 SECONDS Normal PROTIME 13.6 LAB L300.4200 Normal INR 1.0 Performed By: #### L300.3900, L300.4310 #### [facility] [address] [place], [address] PARTIAL THROMBOPLAST Collected: 12/25/2017 Status: F Source: [place] TIME 5:28 AM [facility] REPOSITORY TYPE CODE TESTS RESULT OUT OF RANGE REFERENCE UNITS LAB L300.4310 24.1-36.2 Seconds Normal PTT 33.2 Performed By: #### L300.3900, L300.4310 #### [facility] [address] [place], [address] HISTORY AND PHYSICAL Observed: 12/24/2017 Status: F Source: [place] EXAM 8:48 PM [facility] REPOSITORY [facility] Medical Records Department [address] [place] [address] History and Physical 12/24/17 1607 MR#: [id number] Acct: [id number] Name: ANA HILTON Rep #: [id number] : 1950 67 From: Joana Landaverde MD PCP: Vani Menard MD Status: ADM DIYA Y Location: [place] [address] Problem List (1) Shortness of breath Status: Acute (2) Chest heaviness Status: Acute History of Present Illness Date of Admission: 12/24/17 Chief Complaint: Worsening shortness of breath and chest heaviness. The patient is a 67 year old F with a history of hypertension and recently diagnosed sleep apnea. She was admitted through the ED on 12/24/2017 with complaint of worsening shortness of breath for the past 2 months which actually worsened the last 2 days. Is worse with exertion and not relieved by rest. She also had assisted chest heaviness which started 1 day ago. She denied any lightheadedness or dizziness no palpitations and also had no abdominal pain, diarrhea vomiting. She recently had a sleep study last Thursday and was diagnosed with sleep apnea but is here to have CPAP test. She has been referred to pulmonology 12 PFTs but is here to do so. In the ED vitals were significant for blood pressure 149/82. Chest x-ray showed no acute cardiopulmonary process and CT angiogram was negative. EKG showed normal sinus rhythm. Initial troponin was negative. 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 Denies: Chest Pain, Chest Tightness, Light Headedness, Orthopnea Respiratory: Reports: Shortness of Breath, Shortness of breath at rest, Shortness of breath upon exertion. Denies: Cough, Sputum production, Wheezing Gastrointestinal: Denies: Abdominal Pain, Nausea, Vomiting Genitourinary: Denies: Dysuria Gynecological: Reports: Breast symptoms Musculoskeletal: Denies: Joint Pain, Joint Tenderness Skin: Denies: Rash, Wounds Neurological: Denies: Numbness, Tingling, Focal weakness Psychiatric: Denies: Anxiety, Depression, Homicidal Ideations, Suicidal Ideations Hematologic/ Lymphatic: Denies: Easy Bruising, Easy Bleeding VTE Information - Inpt Only VTE Present on Admission: No VTE Pharm Prophylaxis ordered?: Yes - Physical Exam General: Alert, Oriented x3, Cooperative, No apparent distress HEENT: Atraumatic, PERRLA, EOMI, Normocephalic Oral: Moist Mucosa Neck: Supple, No JVD, Negative Carotid Bruits Lungs: Clear to auscultation, Normal air movement, No rhonchi, No wheeze, No rales Cardiovascular: Regular rate, Regular Rhythm, Normal S1, Normal S2, No murmurs Abdomen: Bowel Sounds Present, Soft, Non Tender, Non-Distended, No Hepato-splenomegaly Extremities: No clubbing, No cyanosis, Capillary Refill Less than 3 Seconds, - - Chronic bilateral lower extremity edema with some stasis dermatitis of right lower extremity. Skin: - - stasis dermatitis of RLE Musculoskeletal: No Tenderness to Palpation of Joints or Extremities Lymphatic: No Cervical, Supraclavicular, or Inguinal Adenopathy Neurological: Cranial nerves II-XII grossly intact Psych/Mental Status: Normal Affect, Appropriate, Alert and oriented to time, place, person, mood and affect Vital Signs Temp Pulse Resp BP Pulse Ox 98.6 F 75 16 149/82 H 96 12/24/17 12:17 12/24/17 16:00 12/24/17 16:00 12/24/17 16:00 12/24/17 16:00 Oxygen Delivery Method Room Air Weight: 253 lb 8.505 oz Body Mass Index (BMI) 49.5 Laboratory Tests Past 24 Hrs WBC 7.3 RBC 4.25 Hgb 12.0 Hct 37.9 MCV 89.2 MCH 28.2 MCHC 31.7 L RDW 13.4 Assessment/Plan All Active Problems Shortness of breath (Acute) Chest heaviness (Acute) Chest pain (Acute) [age]-year-old female presenting with chest heaviness worsening shortness of breath of 2 months duration. 1. Chest heaviness, to rule out ACS * says she has had 2 stress tests in the past and they were negative. * EKG- normal sinus rhythm * initial troponin negative. * CXR showed no acute cardiopulmonary process. CT Angiogram showed a 3.8 x 3.1 cm inhomogeneous solid mass in right lobe of the thyroid gland likely presented goiter with enlargement was negative for any PE. * Admit to PCU with telemetry. * Cycle troponin. * Check A1c and lipid panel. * For stress test tomorrow morning. * Aspirin 81 mg daily and sublingual nitroglycerin as needed * 2. Hypertension: On lisinopril. Will continue. 3. Newly diagnosed sleep apnea: * To follow-up with pulmonology upon discharge. Yet To have CPAP test * 4. Thyroid mass: * CT scan picked up 3.8 x 3.1 cm inhomogeneous solid mass in the right lobe of thyroid gland most likely represents goitrous enlargement. Currently symptomatic. No previous CT to compare. * Will check TSH. 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 * DVT prophylaxis: Heparin CODE STATUS: Patient counseled extensively about differences between full code, DNR CC and DNR CCA. Patient elects to be full code. Total bsfc-bf-iare time 16 minutes. Code Visit OBSV E AND M: 49486 Initial observation care L2 Procedures: 06229 Advncd Care Plan 30 Min 12/24/172047 <Electronically signed by Joana Landaverde MD> Date Joana Landaverde MD Cosigner Signature: Date (if applicable) CC: Vani Menard MD; Joana Landaverde MD Signed CONSULTATION Observed: 12/24/2017 Status: F Source: [place] 5:23 PM [facility] REPOSITORY [facility] Medical Records Department [address] [place] [address] Consultation 12/24/17 1713 MR#: [id number] Acct: [id number] Name: ANA HILTON Rep #: [id number] : 1950 67 From: Luis Clemons MD PCP: Vani Menard MD Status: ADM DIYA Y Location: [place] [address] Problem List (1) Shortness of breath Status: Acute (2) Chest heaviness Status: Acute (3) Chest pain Status: Acute Qualifiers: Chest pain type: precordial pain Qualified Code(s): R07.2 - Precordial pain Reason for Consult Date of Consultation: 12/24/17 Reason for Consultation: Dyspnea on exertion, shortness of breath, chest heaviness. History of Present Illness: The patient is a 67 year old F, morbidly obese, nondiabetic, previous smoker who quit around 10 or 12 years ago after approximately 27-pdtl-kucp smoking history, no previous known COPD and recently evaluated for obstructive sleep apnea with a sleep study this past Thursday. Interestingly during the sleep study evaluation while she was on oxygen at night her breathing was much better. The patient states that over the last several weeks to months she has had progressively worsening dyspnea on exertion, shortness of breath, decreased exercise capacity and decreased energy level. This worsened to the point where she has developed substernal chest pressure which is nonradiating with no associated nausea or vomiting, mostly at rest but occasionally with exertion. In addition she has had chronic lower extremity edema that oscillates on a daily basis for the last several years and is recently gotten worse. The patient underwent a cardiac evaluation including an echocardiogram on 11/23/17 which showed normal LV function, RVSP of approximately 40 mmHg, and mild atherosclerotic thickening. Patient reports that she had a non-walking nuclear stress test on 06/16/16 which was negative for inducible ischemia. She has never had a catheterization. On further history, she has a significant positive family history of coronary disease and her younger brother who of a myocardial infarction at age 53, and a father and mother who both have coronary artery disease at 68 and 69 respectively. The patient recently underwent a sleep study per Dr. Watkins, which was reportedly positive for obstructive sleep apnea. She has not yet been fitted for her CPAP mask. The patient came to [facility] ER for extreme dyspnea on exertion and shortness of breath as well as her chest pressure. Her EKG showed normal sinus rhythm, normal axis, normal intervals, no acute changes. 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 Past Medical History Allergies/Adverse Reactions: Allergies codeine Adverse Reaction (Verified 05/24/16 14:41) Unknown naproxen sodium [From Aleve] Adverse Reaction (Verified 05/24/16 14:41) Shortness of breath Home Medications: Ambulatory Orders Medication Instructions Recorded Omeprazole [Prilosec] 40 mg PO DAILY 05/24/16 Furosemide [Lasix] 20 mg PO DAILY 12/24/17 Lisinopril [Zestril] 10 mg PO DAILY 12/24/17 Surgical History: appendectomy, cholecystectomy Psychiatric History: No pertinent psych hx MEDICAL APPLIANCE MAKER History: No pertinent MEDICAL APPLIANCE MAKER history - *Family History Maternal History Items: Heart Disease Paternal History Items: Unknown Sibling History Items: Heart Disease Lives: Alone Smoking Status: Former smoker Tobacco Use: Cigarettes Alcohol: Occasional Drugs: None Review of Systems - Review of Systems General: Denies: Fever, Night Sweats, Fatigue Cardiovascular: Reports: Chest Discomfort, Chest Discomfort at Rest, Chest Pressure, Shortness of Breath at Rest, Shortness of Breath with Exertion, Peripheral Edema. Denies: Shortness of Breath, Orthopnea, PND, Palpitations, Lightheadedness, Dizziness, Near Syncope, Syncope Respiratory: Denies: Cough, Sputum Production, Hemoptysis Gastrointestinal: Denies: Hematemesis, Hematochezia, Melena Genitourinary: Denies: Dysuria, Hematuria Skin: Denies: Rash Objective: Vital Signs Temp Pulse Resp BP Pulse Ox 98.8 F 72 19 H 188/89 H 96 12/24/17 16:46 12/24/17 16:46 12/24/17 16:46 12/24/17 16:46 12/24/17 16:46 Oxygen Delivery Method Room Air Weight: 244 lb 14.937 oz Body Mass Index (BMI) 47.8 12/24/17 12:25: WBC 7.3, RBC 4.25, Hgb 12.0, Hct 37.9, MCV 89.2, MCH 28.2, MCHC 31.7 L, RDW 13.4, RDW Differential 43.8, Plt Count 291, MPV 10.0, Immature Gran % (Auto) 0.400, Neut % (Auto) 68.2, Lymph % (Auto) 20.0, Ward % (Auto) 6.8, Eos % (Auto) 3.4, Baso % (Auto) 1.2 H, Absolute Neuts (auto) 4.9, Total Counted Not Reportable 12/24/17 12:25: Sodium 140, Potassium 3.5, Chloride 105, Carbon Dioxide 30.0, Anion Gap 5, BUN 13, Creatinine 0.94, Est GFR (MDRD) Af Amer 76, Est GFR (MDRD) Non-Af 63, BUN/Creatinine Ratio 13.8, Glucose 104, Calcium 9.0, Troponin I < 0.015 Rhythm: EKG: ECHO: Stress Test: Cardiac Cath: Pending PCI: CT Surgery: Holter monitor: EPS: PPM: CXR: Chest CT Scan: Assessment/Plan 1. Dyspnea on exertion: The patient has several risk factors for dyspnea on exertion including previous smoking, obesity, lower extremity edema, shortness of breath, dyspnea on exertion and positive family history of premature coronary disease in her brother. I am somewhat concerned the patient may have coronary disease versus her pulmonary system being entirely responsible for her signs and symptoms. Patient has evidence of oscillating lower extremity edema suggesting increased pulmonary filling pressures as well. I recommended the patient be loaded with baby aspirin x4, followed by Plavix 300 mg x1, and that she undergo a left and right heart catheterization tomorrow morning. Although her stress test was negative in 2017, this does not exclude the possibility of possible multivessel coronary disease or left main disease which would explain her dyspnea on exertion. The risks/benefits of the procedure were thoroughly explained to the patient including limitations of on-site surgical backup, and the patient is agreed to proceed. The patient has no significant coronary disease I would refer her back to her primary dioramist Dr. Watkins for BiPAP therapy, and possible pulmonary function test for undiagnosed COPD. In addition we will start her on Lasix 40 mg IV daily to assist with lower extremity edema as well as William bandages to her bilateral lower extremity. 2. 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 Will obtain TSH and T4 for further evaluation, may require endocrine referral. 3. Hyperlipidemia: Recommend obtaining a fasting lipid profile to further risk stratify the patient's cardiac issues. 4. Thank you very much for the opportunity to participate in the cardiac care of your patient. Consultation time took place between 445 and 5:23 PM. 12/24/17 1723 <Electronically signed by Luis Clemons MD> Date Luis Clemons MD Cosigner Signature (if applicable): Date CC: Vani Menard MD Signed EMERGENCY DEPARTMENT Observed: 12/24/2017 Status: F Source: [place] SUMMARY 5:18 PM [facility] REPOSITORY [facility] Medical Records Department [address] [place] [address] Emergency Department Summary 12/24/17 1604 MR#: [id number] Acct: [id number] Name: ANA HILTON Rep #: [id number] : 1950 67 From: Luis Winkler DO PCP: Vani Menard MD Status: ADM DIYA - ER Visit Summary Date of Service: 12/24/17 Chief Complaint: Dyspnea History of Present Illness: The patient is a 67 F who states that for the past several weeks she has been developing dyspnea on exertion. She states that she went to her doctor and had an echocardiogram done that showed some mild aortic stenosis. (Chart review shows this was performed October 2017. Ejection fraction 55% mild tricuspid insufficiency. Mild aortic stenosis. We will may artery pressure at 40.). She states that she had a sleep study done approximately 1 week ago and believes her symptoms have gotten significantly worse since then. She states she has to rest several times walking from the car into the emergency room. She also notes an associated left-sided chest tightness when she walks. She had a stress test in May 2016 that was negative. She has been referred to pulmonology Dr. Watkins for pulmonary function testing. I received a copy of her sleep study which was read as obstructive sleep apnea. Physical Examination: Afebrile vital signs are stable Gen: Well-nourished well-developed obese Head: Normocephalic atraumatic Eyes: Perrl EOMI ENT: TMs clear no rhinorrhea moist mucous membranes Neck: Supple no lymphadenopathy no JVD nontender CVS: Regular rate rhythm no murmurs normal S1-S2 Respiratory: No distress clear to auscultation bilaterally chest nontender Abdomen: Soft nontender nondistended normal bowel sounds no masses Back: Nontender Extremity: Nontender 1+ edema bilaterally Skin: Normal color no rash Neuro: alert orientated 3 CN II-XII intact normal strength sensation reflexes gait cerebellar Psych: Normal affect normal mood Test Results: EKG demonstrated normal sinus rhythm at a rate of 70. No ectopy. CBC BMP troponin negative. Chest x-ray negative. CT Roxana of the chest negative for PE or for dissection. Emergency Department Course and Treatment: Patient was asked to ambulate with nursing. From walking from the room to the nurses desk she became short of breath pulse ox dropped to 90% and she had labored breathing. This improved with rest. I spoke with Dr. Clemons as well as and the plan will be admission for further evaluation. Impression: 1. Chest pain 2. Dyspnea 3. Obstructive sleep apnea This note was generated with Dashbell dictation software. It may contain incorrect words, spelling, and punctuation that were not noted in review of the chart prior to signing ED Disposition - Plan for ED Patient: Chief Complaint: Chest Pain Referrals: Vani Menard MD [Primary Care Provider] - What to do if you have Problems For any increased pain, shortness of breath, bleeding, nausea or vomiting, chest pain, or any unexpected problems, contact your Primary Care Provider. Call [facility] ([phone]) or report to the closest Emergency Room. Call 911 if necessary. 12/24/17 4777 <Electronically signed by Luis Winkler DO> Date Luis Winkler DO [facility] Signature (If Indicated): Date CC: Vani Menard MD CTA CHEST W/WO Observed: 12/24/2017 Status: F Source: [place] CONTRAST 1:38 PM [facility] REPOSITORY [facility] Imaging Services [address] [place] [address] CTA Chest W/WO Contrast MR#: [id number] Acct: [id number] Name: ANA HILTON Rep #: [id number] : 1950 F 67 From: Jr Maddox MD PCP: Vani Menard MD Status: REG ER Study: CTA Chest W/WO Contrast Date of Exam: 12/24/17 Exam# [id number] Ordering Dr: Luis Winkler DO STUDY: CTA CHEST REASON FOR EXAM: Female, 67 years old. 3 month history of fatigue, chest pain and dyspnea. RADIATION DOSAGE (If Supplied By Facility): CTDIvol = ( 14.73 ) mGy, DLP = ( 556.65 ) mGycm TECHNIQUE: The examination was performed with the intravenous administration of 100 ml of Isovue 370 contrast material. Post-processing of the angiographic images was performed, with multiplanar reformation and 3D reconstruction. Individualized dose optimization techniques were used for this CT. COMPARISON: Comparison is made with prior chest radiograph done earlier in the day. FINDINGS: There is a 3.8 cm x 3.1 cm inhomogeneous solid mass in the right lobe of the thyroid gland. This most likely represents goitrous enlargement. Normal enhancement of the main pulmonary artery and right and left pulmonary arteries. Normal enhancement of the bilateral peripheral pulmonary arteries. There is no demonstrated pulmonary embolism. Normal thoracic aorta and visualized great vessels. There is no demonstrated aortic dissection. Normal heart and pericardium. There are visualized mediastinal lymph nodes, which are within normal size limits, and with normal morphology. Normal hilar regions. Normal visualized trachea and bronchi. The lungs are well expanded. Normal pulmonary parenchyma. Normal pleura. Normal chest wall structures. There are degenerative changes of thoracic spine. The patient is status post cholecystectomy. CT/CTA Chest W/WO Contrast IMPRESSION: Normal CTA chest examination, without a demonstrated pulmonary embolism or arterial dissection. Electronically Signed: Jr Maddox MD at 15:01 EDT Tel [phone], Service support , CC: Luis Winkler DO; Vani Menard MD Technical Writer And Editor: Signed CHEST 1 VIEW Observed: 12/24/2017 Status: F Source: [place] (PORTABLE) 12:42 PM [facility] REPOSITORY [facility] Imaging Services [address] [place] [address] Chest 1 View (Portable) MR#: [id number] Acct: [id number] Name: ANA HILTON Rep #: [id number] : 1950 F 67 From: Jr Maddox MD PCP: Vani Menard MD Status: REG ER Study: Chest 1 View (Portable) Date of Exam: 12/24/17 Exam# [id number] Ordering Dr: Luis Winkler DO STUDY: X-RAY CHEST REASON FOR EXAM: Female, 67 years old. Dyspnea. Chest heaviness. TECHNIQUE: Single AP portable view of the chest. COMPARISON: Comparison is made with prior examination dated October 27, 2017. FINDINGS: EKG electrodes are seen. The lungs are clear and expanded. Scattered calcified granulomas. There is no demonstrated pleural abnormality. Normal size heart. Normal mediastinum and rupali. Normal visualized pulmonary arteries. Normal visualized aortic arch and descending thoracic aorta. There are diffuse degenerative changes of the visualized thoracic spine. Normal visualized ribs, clavicles, and shoulders. There is no demonstrated abnormality of the visualized soft tissue structures of the upper abdomen. RAD/Chest 1 View (Portable) IMPRESSION: No acute abnormality is seen. Electronically Signed: Jr Maddox MD at 13:32 EDT Tel [phone], Service support , CC: Luis Winkler DO; Vani Menard MD Technical Writer And Editor: Signed CBC W/DIFF, AUTOMATED Collected: 12/24/2017 Status: F Source: [place] 12:25 PM [facility] REPOSITORY TYPE CODE TESTS RESULT OUT OF RANGE REFERENCE UNITS LAB L100.1000 4.4-11.0 K/mm3 Normal WBC 7.3 LAB L100.1200 4.2-5.4 M/mm3 Normal RBC 4.25 LAB L100.1300 12.0-15.0 g/dl Normal HGB 12.0 LAB L100.1400 37-47 % Normal HCT 37.9 LAB L100.1500 81-99 fL Normal MCV 89.2 LAB L100.1600 27.0-32.0 pg Normal MCH 28.2 LAB L100.1700 32-36 g/gl Low MCHC 31.7 LAB L100.1810 11.6-14.6 % Normal RDW CV 13.4 LAB L100.1820 35.1-43.9 fl Normal RDW SD 43.8 LAB L100.1900 150-450 K/mm3 Normal PLT 291 LAB L100.2000 6.2-12.0 fl Normal MPV 10.0 LAB L100.2100 47-70 % Normal NEUT% 68.2 LAB L100.2200 19-41 % Normal LY% 20.0 LAB L100.2300 0-10 % Normal MONO% 6.8 LAB L100.2400 0-5 % Normal EO% 3.4 LAB L100.2500 0-1 % High BASO% 1.2 LAB L100.2550 0.0-0.9 % Normal IM GRAN % 0.400 Result Comment: IG% - Immature Granulocytes (promyelocytes, myelocytes and metamyelocytes) > 1% indicates that a LEFT SHIFT is Present. LAB L100.2620 2.0-7.7 X10 3/uL Normal Absolute Neut 4.9 LAB L100.2720 0.83-4.51 X10 3/ul Normal Absolute Lymph 1.45 Performed By: #### L100.0100 #### [facility] [address] [place], [address] BASIC METABOLIC Collected: 12/24/2017 Status: F Source: [place] PROFILE (BMP) 12:25 PM [facility] REPOSITORY TYPE CODE TESTS RESULT OUT OF RANGE REFERENCE UNITS LAB L501.0100 74-106 mg/dL Normal GLU 104 Result Comment: Fasting Glucose result from 100 to 125 mg/dL suggests IMPAIRED HOMEOSTASIS per A.D.A. criteria. Please note revised GLUCOSE reference range effective 2017. LAB L501.1000 7-18 mg/dL Normal BUN 13 LAB L501.1100 0.55-1.02 mg/dL Normal CREAT,SERUM 0.94 Result Comment: The validity of the calculated GFR AND GFRAA in patients over 70 years has not been determined. Clinical correlation is essential. LAB L501.1110 >60 mL/min Normal EST GFR 63 Result Comment: Non- GFR Calc LAB L501.1115 >60 mL/min Normal EST GFR - AA 76 Result Comment: GFR Calc LAB L501.1255 ml/min Normal Estimated CRCL 42.86 LAB L501.1300 10-20 RATIO Normal BUN/CRE 13.8 LAB L501.2200 8.5-10 mg/dL Normal .1 CA 9.0 LAB L501.5300 136-14 mmol/L Normal 5 NA 140 LAB L501.5600 3.5-5. mmol/L Normal 1 K 3.5 LAB L501.5900 98-107 mmol/L Normal CL 105 LAB L501.6100 21.0-3 mmol/L Normal 2.0 CO2 30.0 LAB L501.6200 5-15 Normal GAP 5 Performed By: #### L500.2500, L501.4010 #### [facility] [address] [place], [place], [address] TROPONIN-I Collected: 12/24/2017 Status: F Source: [place] 12:25 PM [facility] REPOSITORY TYPE CODE TESTS RESULT OUT OF RANGE REFERENCE UNITS LAB L501.4010 <0.045 ng/mL Normal < 0.015 TROPONIN-I Result Comment: TROPONIN-I EXPECTED VALUES <0.045 Negative 0.045 - 0.590 Consistent with Cardiac Damage > OR = 0.600 Critical Value Not every elevated troponin is indicative of PA. These values should be used with clinical judgement in examining the patient's clinical picture for diagnosis. To establish a diagnosis of PA versus myocardial injury, there must be a demonstrated rise and/or fall in the troponin values, in addition to ischemic symptoms, EKG changes, new regional wall motion abnormality, and/or angiographical evidence. PLEASE NOTE: REFERENCE RANGES EDITED 17 Performed By: #### L500.2500, L501.4010 #### [facility] [address] [place], [place], [id number] LIPID PROFILE Collected: 12/24/2017 Status: F Source: [place] 12:25 PM [facility] REPOSITORY TYPE CODE TESTS RESULT OUT OF RANGE REFERENCE UNITS LAB L501.4900 200 mg/dL Normal CHOL 197 Result Comment: <200 mg/dL Desirable 200-240 mg/dL Borderline >240 mg/dL High Risk LAB L501.5000 mg/dL Normal TRIG 133 Result Comment: The drugs N-Acetylcysteine and Metamizole may falsely depress this assay. Serum Triglycerides Reference Interval Normal <150 mg/dL Borderline high 150 - 199 mg/dL High 200 - 499 mg/dL Very High > or = 500 mg/dL LAB L501.6400 mg/dL Normal HDL 44 Result Comment: The drugs N-Acetylcysteine and Metamizole may falsely depress this assay. Reference Range HDL <40 mg/dL Low HDL Cholesterol HDL >or= 60 mg/dL High HDL Cholesterol LAB L501.6500 0-130 mg/dL Normal LDL 126 LAB L501.6600 5-40 mg/dL Normal VLDL 27 Performed By: #### L500.4100, L501.9520, L506.0400 #### [facility] [address] [place], [place], [id number] THYROID STIM HORMONE Collected: 12/24/2017 Status: F Source: [place] (TSH) 12:25 PM [facility] REPOSITORY TYPE CODE TESTS RESULT OUT OF RANGE REFERENCE UNITS LAB L501.9520 0.358-3.74 uIU/mL Normal TSH 1.32 Performed By: #### L500.4100, L501.9520, L506.0400 #### [facility] [address] [place], [place], [address] T4 FREE DIRECT Collected: 12/24/2017 Status: F Source: [place] 12:25 PM [facility] REPOSITORY TYPE CODE TESTS RESULT OUT OF RANGE REFERENCE UNITS LAB L506.0400 0.76-1.46 ng/dL Normal T4 FREE 1.11 DIRECT Performed By: #### L500.4100, L501.9520, L506.0400 #### [facility] [address] [place], [place], [address] BASIC METABOLIC Collected: 11/30/2017 Status: F Source: [place] PROFILE (BMP) 9:46 AM [facility] REPOSITORY TYPE CODE TESTS RESULT OUT OF RANGE REFERENCE UNITS LAB L501.0100 74-106 mg/dL Normal GLU 93 Result Comment: Please note revised GLUCOSE reference range effective 2017. LAB L501.1000 7-18 mg/dL High BUN 20 LAB L501.1100 0.55-1.02 mg/dL Normal CREAT,SERUM 0.77 Result Comment: The validity of the calculated GFR AND GFRAA in patients over 70 years has not been determined. Clinical correlation is essential. LAB L501.1110 >60 mL/min Normal EST GFR 80 Result Comment: Non- GFR Calc LAB L501.1115 >60 mL/min Normal EST GFR - AA 97 Result Comment: GFR Calc LAB L501.1300 10-20 RATIO High BUN/CRE 26.0 LAB L501.2200 8.5-10.1 mg/dL CA Normal 9.2 LAB L501.5300 136-145 mmol/L NA Normal 143 LAB L501.5600 3.5-5.1 mmol/L K Normal 3.9 LAB L501.5900 98-107 mmol/L CL Normal 101 LAB L501.6100 21.0-32.0 mmol/L High CO2 34.0 LAB L501.6200 5-15 Normal GAP 8 Performed By: #### L500.2500, L500.4100 #### [facility] [address] [place], [address] LIPID PROFILE Collected: 11/30/2017 Status: F Source: [place] 9:46 AM [facility] REPOSITORY TYPE CODE TESTS RESULT OUT OF RANGE REFERENCE UNITS LAB L501.4900 200 mg/dL Normal CHOL 196 Result Comment: <200 mg/dL Desirable 200-240 mg/dL Borderline >240 mg/dL High Risk LAB L501.5000 mg/dL Normal TRIG 97 Result Comment: The drugs N-Acetylcysteine and Metamizole may falsely depress this assay. Serum Triglycerides Reference Interval Normal <150 mg/dL Borderline high 150 - 199 mg/dL High 200 - 499 mg/dL Very High > or = 500 mg/dL LAB L501.6400 mg/dL Normal HDL 48 Result Comment: The drugs N-Acetylcysteine and Metamizole may falsely depress this assay. Reference Range HDL <40 mg/dL Low HDL Cholesterol HDL >or= 60 mg/dL High HDL Cholesterol LAB L501.6500 0-130 mg/dL Normal LDL 129 LAB L501.6600 5-40 mg/dL Normal VLDL 19 Performed By: #### L500.2500, L500.4100 #### [facility] [address] [place], [address] ECHO, COMPLETE W/ Observed: 11/23/2017 Status: F Source: [place] CONTRAST 5:09 PM [facility] REPOSITORY [facility] Cardiovascular Services [address] [place] [address] Echo Complete W/ Contrast 11/23/17 1338 MR#: [id number] Acct: [id number] Name: ANA HILTON Rep #: [id number] : 1950 67 From: Dhaval Melo MD Attending Dr: Vani Menard MD Status: REG CLI Ordering Dr: Vani Menard MD Date: 11/23/17 Location: [facility] Sex: F C Admitted: Reason For Study: Dyspnea Procedure This was a 2D Doppler, Color Flow transthoracic echocardiogram. The study was technically difficult. Contrast injection was performed. Exam performed in department. Left Ventricle Normal LV size. Left ventricular systolic function is normal. The estimated ejection fraction is 55 %. No regional wall motion abnormalities noted. Right Ventricle Normal RV size. Normal systolic function. Atria The left atrium is mildly enlarged. Normal right atrium. Mitral Valve Normal mitral valve. Tricuspid Valve Normal tricuspid valve. Mild (1+) tricuspid valve insufficiency. Pulmonary artery systolic pressure is 40 mmHg. Aortic Valve Trisinus/trileaflet aortic valve. Mild focal aortic valve calcification. Mild aortic stenosis. Pulmonic Valve Normal pulmonic valve. Great Vessels Normal aortic root. The pulmonary artery is normal size. Normal inferior vena cava. Pericardium/Pleural No pericardial effusion. Medication 22 gauge I.V. with prn adaptor inserted into right arm. Diluted definity 3ml given slow IV push to enhance endocardial definition. MMode/2D Measurements AND Calculations LVIDd: 4.3 cm IVSd: 1.1 cm LVOT diam: 1.9 cm LVIDs: 2.4 cm LVPWd: 0.87 cm LVOT area: 2.7 cm2 FS: 45.1 % Ao root diam: 2.8 cm LAV(MOD-sp4): 58.7 ml LVAd ap4: 29.4 cm2 LA dimension: 3.6 cm EDV(MOD-sp4): 95.4 ml EDV(sp4-el): 99.3 ml LVAs ap4: 15.4 cm2 ESV(MOD-sp4): 33.9 ml ESV(sp4-el): 32.2 ml EF(MOD-sp4): 64.5 % EF(sp4-el): 67.6 % SV(MOD-sp4): 61.5 ml SV(sp4-el): 67.1 ml LA A4 area: 20.2 cm2 Time Measurements MV dec time: 0.23 sec Doppler Measurements AND Calculations MV E max kenna: 132.9 cm/sec MV V2 max: 154.1 cm/sec MV P1/2t max kenna: 155.0 cm/sec MV A max kenna: 118.5 cm/sec MV max P.5 mmHg MV P1/2t: 95.6 msec MV E/A: 1.1 MV V2 mean: 69.9 cm/sec MV dec slope: 475.0 cm/sec2 MV mean P.5 mmHg MVA(P1/2t): 2.3 cm2 MV V2 VTI: 46.4 cm MVA(VTI): 1.8 cm2 Ao V2 max: 212.9 cm/sec LV V1 max: 133.7 cm/sec SV(LVOT): 84.6 ml Ao max P.1 mmHg LV V1 max P.2 mmHg Ao V2 mean: 127.2 cm/sec LV V1 mean P.1 mmHg Ao mean P.7 mmHg LV V1 mean: 79.2 cm/sec Ao V2 VTI: 43.3 cm LV V1 VTI: 31.1 cm TERA(I,D): 2.0 cm2 TERA(V,D): 1.7 cm2 PA V2 max: 107.9 cm/sec TR max kenna: 295.9 cm/sec TR max P.0 mmHg Interpretation Summary Normal LV size. Left ventricular systolic function is normal. The estimated ejection fraction is 55 %. The left atrium is mildly enlarged. Mild (1+) tricuspid valve insufficiency. Mild focal aortic valve calcification. Mild aortic stenosis. Ordering Physician: Vani Menard Referring Physician: Vani Menard Performed By: Luis Brumfield RCS 11/23/17 1709 Date Dhaval Melo MD CC: Vani Menard MD Date Dictated: 11/23/17 1338 Date Transcribed: 11/23/171708 Technical Writer And Editor: Signed CHEST PA AND LATERAL Observed: 10/27/2017 Status: F Source: [place] 2:59 PM [facility] REPOSITORY [facility] Imaging Services [address] [place] [address] Chest PA and Lateral MR#: [id number] Acct: [id number] Name: ANA HILTON Rep #: [id number] : 1950 F 67 From: Vaughn Feliciano MD PCP: Vani Menard MD Status: REG CLI Study: Chest PA and Lateral Date of Exam: 10/27/17 Exam# [id number] Ordering Dr: Vani Menard MD STUDY: X-RAY CHEST REASON FOR EXAM: Female, 67 years old. Shortness of breath, dyspnea. TECHNIQUE: PA and lateral chest COMPARISON: 05/24/2016 chest x-ray FINDINGS: The lungs are clear and expanded. Normal cardiomediastinal silhouette, rupali and pleural margins. No acute osseous or upper abdominal process. RAD/Chest PA and Lateral IMPRESSION: No acute cardiopulmonary process. Electronically Signed: Vaughn Feliciano, at 15:25 EDT Tel , Service support , CC: Vani Menard MD Technical Writer And Editor: Signed CBC W/DIFF, AUTOMATED Collected: 09/09/2017 Status: F Source: [place] 11:47 AM [facility] REPOSITORY TYPE CODE TESTS RESULT OUT OF RANGE REFERENCE UNITS LAB L100.1000 4.4-11.0 K/mm3 Normal WBC 7.7 LAB L100.1200 4.2-5.4 M/mm3 Normal RBC 4.44 LAB L100.1300 12.0-15.0 g/dl Normal HGB 12.8 LAB L100.1400 37-47 % Normal HCT 39.2 LAB L100.1500 81-99 fL Normal MCV 88.3 LAB L100.1600 27.0-32.0 pg Normal MCH 28.8 LAB L100.1700 32-36 g/gl Normal MCHC 32.7 LAB L100.1810 11.6-14.6 % Normal RDW CV 13.1 LAB L100.1820 35.1-43.9 fl Normal RDW SD 42.2 LAB L100.1900 150-450 K/mm3 Normal PLT 281 LAB L100.2000 6.2-12.0 fl Normal MPV 10.5 LAB L100.2100 47-70 % Normal NEUT% 65.6 LAB L100.2200 19-41 % Normal LY% 19.2 LAB L100.2300 0-10 % Normal MONO% 8.8 LAB L100.2400 0-5 % Normal EO% 4.3 LAB L100.2500 0-1 % High BASO% 1.3 LAB L100.2550 0.0-0.9 % Normal IM GRAN % 0.800 Result Comment: IG% - Immature Granulocytes (promyelocytes, myelocytes and metamyelocytes) > 1% indicates that a LEFT SHIFT is Present. LAB L100.2620 2.0-7.7 X10 3/uL Normal Absolute Neut 5.0 LAB L100.2720 0.83-4.51 X10 3/ul Normal Absolute Lymph 1.47 Performed By: #### L100.0100 #### [facility] [address] [place], [address] COMPREHENSIVE METABOLIC Collected: 09/09/2017 Status: F Source: [place] [facility] 11:47 AM [facility] REPOSITORY TYPE CODE TESTS RESULT OUT OF RANGE REFERENCE UNITS LAB L501.0100 74-106 mg/dL Normal GLU 84 Result Comment: Please note revised GLUCOSE reference range effective 2017. LAB L501.1000 7-18 mg/dL Normal BUN 14 LAB L501.1100 0.55-1.02 mg/dL Normal CREAT,SERUM 0.71 Result Comment: The validity of the calculated GFR AND GFRAA in patients over 70 years has not been determined. Clinical correlation is essential. LAB L501.1110 >60 mL/min Normal EST GFR 88 Result Comment: Non- GFR Calc LAB L501.1115 >60 mL/min Normal EST GFR - AA 107 Result Comment: GFR Calc LAB L501.1300 10-20 RATIO Normal BUN/CRE 19.8 LAB L501.1500 6.4-8.2 g/dL T Normal PROT 7.2 LAB L501.1800 3.2-5.0 g/dL Normal ALB 3.5 LAB L501.1950 2.2-4.2 g/dL Normal GLOB 3.7 LAB L501.2000 0.9-2.4 RATIO Normal A/G 0.9 LAB L501.2200 8.5-10.1 mg/dL CA Normal 9.2 LAB L501.4100 15-37 U/L High AST 44 LAB L501.4305 45-117 U/L Normal ALK P 88 LAB L501.4405 13-56 U/L Normal ALT 24 LAB L501.4600 0.20-1.00 mg/dL T Normal BILI 0.30 LAB L501.5300 136-145 mmol/L NA Normal 141 LAB L501.5600 3.5-5.1 mmol/L K Normal 3.8 LAB L501.5900 98-107 mmol/L CL Normal 105 LAB L501.6100 21.0-32.0 mmol/L Normal CO2 27.0 LAB L501.6200 5-15 Normal GAP 9 Performed By: #### L500.4050, L501.9520 #### [facility] [address] [place], [address] THYROID STIM HORMONE Collected: 09/09/2017 Status: F Source: [place] (TSH) 11:47 AM [facility] REPOSITORY TYPE CODE TESTS RESULT OUT OF RANGE REFERENCE UNITS LAB L501.9520 0.358-3.74 uIU/mL Normal TSH 1.22 Performed By: #### L500.4050, L501.9520 #### [facility] [address] [place], [address] ALLERGIES ALLERGIES DATE TYPE / CODE NAME / CODE REACTION SEVERITY SOURCE 03/24/2018 Drug naproxen Shortness of Unknown [facility] Allergy/416 sodium/[id number] [facility] 680601(SNOM 81(RXNORM) Repository ED CT) 03/24/2018 Drug codeine/[id number] Unknown Unknown [facility] Allergy/416 550(RXNORM) Hospital 016599(SNOM Repository ED CT) ENCOUNTERS ENCOUNTERS ADMIT/DISCHARGE ACCOUNT ADMITTING ENCOUNTER LOCATION SOURCE NUMBER CLASS 03/24/2018 [id number] [facility] ing:[facility] Repository 03/24/2018/ [id number] [facility] [facility] [place] Repository 02/10/2018/ [id number] Ambulatory BMSBuilding:B [place] 8 5 [place] [place] 02/03/2018 [id number] Ambulatory [place] 5 [facility] ing: Repository 01/13/2018 [id number] Ambulatory [place] 4 [facility] ing: Repository 01/05/2018/ [id number] Ambulatory BMSBuilding:B [place] 8 0 MS.[facility] Repository 12/24/2017/ [id number] Joana Landaverde Ambulatory [place] 8 4 [place] [facility] Hospital ing:PCURoom: Repository [id number]: 1 12/24/2017 [id number] Koram, Joana Ambulatory BMSBuilding:B [place] 1 [place] MS.CF.[facility] Repository 12/24/2017 [id number] Koram, Joana Ambulatory BMSBuilding:B [place] 5 [place].[facility] Repository 12/24/2017 [id number] Koram, Joana Ambulatory BMSBuilding:B [place] 1 [place].[facility] Repository 12/24/2017 [id number] Koram, Joana Ambulatory BMSBuilding:B [place] 5 [place] MS.CF.[facility] Repository 12/24/2017 [id number] Koram, Joana Ambulatory BMSBuilding:B [place] 0 [place].[facility] Repository 11/30/2017 [id number] [place] 6 [facility] Hospital ing:MTLAB Repository 11/23/2017 [id number] Ambulatory [place] 4 [facility] Hospital ing:CVS Repository 11/23/2017 [id number] Ambulatory BMSBuilding:W [place] 5 [facility] Repository 10/27/2017 [id number] Ambulatory [place] 0 [facility] Hospital ing:MTRAD Repository 09/09/2017 [id number] Ambulatory [place] 7 [facility] Hospital ing:MFPLAB Repository PAYERS PAYERS ENCOUNTER GUARANTOR PAYER SUBSCRIBER SOURCE 03/24/2018 ANA [place] Primary Insurance:MMO ANA [place] [id number] N MEDICAREPolicy BOREMANDOB: Critical access hospital Number: [id number], [place] [id number] Repository 05328Vmu: 330) Date:0198-23-62[phone] ( [place], [place] [address]QX: 03/24/2018 Secondary NOT GIVENUNK [place] Insurance:SELF PAY [facility] Number: Effective Repository Date:2018-03-24 03/24/2018 ANA [place] Primary Insurance:MMO ANA [place] [id number] N MEDICAREPolicy BOREMANDOB: Community JOSE Number: [id number], [place] [id number] Repository 44688Gor: (330) Date:4616-79-05UL [address] (HP) [address] [place] [phone]: 03/24/2018 Secondary NOT GIVENUNK [place] Insurance:SELF PAY [facility]: Effective Repository Date:2018-03-18 02/10/2018 ANA L Primary Insurance:MMO ANA L [place] [id number] N MEDICAREPolicy BOREMANDOB: Community JOSE Number: [id number], [place] [id number] Repository 94839Cnh: (330) Date:7817-71-67HD [address] (HP) [address] [place] [phone]: 02/10/2018 Secondary NOT GIVENUNK [place] Insurance:SELF PAY [facility] Number: Effective Repository Date:2018-02-01 02/03/2018 ANA L Primary Insurance:MMO ANA L [place] [id number] N MEDICAREPolicy BOREMANDOB: Community JOSE Number: [id number], [place] [id number] Repository 99716Qlr: (330) Date:6844-19-54ZV [address] (HP) [address] [place] [phone]: 02/03/2018 Secondary NOT GIVENUNK [place] Insurance:SELF PAY [facility] Number: Effective Repository Date:2018-01-15 01/13/2018 ANA L Primary Insurance:MMO ANA L [place] [id number] N MEDICAREPolicy BOREMANDOB: Community JOSE Number: [id number], [place] [id number] Repository 86678Vae: (330) Date:8348-96-99GE [address] (HP) [address] [place] [phone]: 01/13/2018 Secondary NOT GIVENUNK [place] Insurance:SELF PAY [facility] Number: Effective Repository Date:2018-01-11 01/05/2018 ANA [place] Primary Insurance:MMO ANA [place] [id number] N MEDICAREPolicy BOREMANDOB: [facility] JOSE Number: [id number], [place] [id number] Repository 87053Glo: (330) Date:8783-29-09CE [address] () [address] [place], [place] [phone]: 01/05/2018 Secondary NOT GIVENUNK [place] Insurance:SELF PAY [facility] Number: Effective Repository Date:2017-12-25 12/24/2017 ANA L Primary Insurance:MMO ANA [place] [id number] N MEDICAREPolicy BOREMANDOB: Critical access hospital Number: [id number], [place] [id number] Repository 396[address]Zng: (330) Date:9675-80-72RP [address] () [address] [place], [place] [phone]: 12/24/2017 Secondary NOT GIVENUNK [place] Insurance:SELF PAY [facility] Number: Effective Repository Date:2017-12-24 12/24/2017 ANA Simpson Primary Insurance:MMO ANA [place] [id number] N MEDICAREPolicy BOREMANDOB: Critical access hospital Number: [id number], [place] [id number] Repository [address]Njc: (330) Date:3794-82-58EM [address] () [address] [place] [phone]: 12/24/2017 Secondary NOT GIVENUNK [place] Insurance:SELF PAY [facility] Number: Effective Repository Date:2017-12-24 12/24/2017 ANA L Primary Insurance:MMO ANA [place] [id number] N MEDICAREPolicy BOREMANDOB: Critical access hospital Number: [id number], [place] [id number] Repository 38974Gvl: (330) Date:3654-56-37[address] () [address] [place] [phone]: 12/24/2017 Secondary NOT GIVENUNK [place] Insurance:SELF PAY [facility] Number: Effective Repository Date:2017-12-24 12/24/2017 ANA L Primary Insurance:MMO ANA L [place] [id number] N MEDICAREPolicy BOREMANDOB: Community JOSE Number: [id number], [place] [id number] Repository 19643Frh: (330) Date:1560-02-70CT [address] () [address] [place], [place] [phone]: 12/24/2017 Secondary NOT GIVENUNK [place] Insurance:SELF PAY [facility] Number: Effective Repository Date:2017-12-24 12/24/2017 ANA L Primary Insurance:MMO ANA L [place] [id number] N MEDICAREPolicy BOREMANDOB: [facility] JOSE Number: [id number], [place] [id number] Repository 25839Qeb: (330) Date:0972-94-24IZ [address] () [address] [place], [place] [phone]: 12/24/2017 Secondary NOT GIVENUNK [place] Insurance:SELF PAY [facility] Number: Effective Repository Date:2017-12-24 12/24/2017 ANA L Primary Insurance:MMO ANA L [place] [id number] N MEDICAREPolicy BOREMANDOB: Community JOSE Number: [id number], [place] [id number] Repository 81189Wdx: (330) Date:3260-20-42TP [address] () [address] [place], [place] [phone]: 12/24/2017 Secondary NOT GIVENUNK [place] Insurance:SELF PAY [facility] Number: Effective Repository Date:2017-12-24 11/30/2017 ANA L Primary Insurance:MMO ANA L [place] [id number] N MEDICAREPolicy BOREMANDOB: [facility] JOSE Number: [id number], [place] [id number] Repository 33239Pzw: (330) Date:7393-06-89EW [address]06[address] (HP) [address] [place] [phone]: 11/30/2017 Secondary NOT GIVENUNK [place] Insurance:SELF PAY [facility] Number: Effective Repository Date:2017-11-30 11/23/2017 ANA L Primary Insurance:MMO ANA L [place] [id number] N MEDICAREPolicy BOREMANDOB: [facility] JOSE Number: [id number], [place] [id number] Repository 38209Cue: (330) Date:5319-14-52XF [address]3621 (HP) [address] [place] [phone]: 11/23/2017 Secondary NOT GIVENUNK [place] Insurance:SELF PAY [facility] Number: Effective Repository Date:2017-11-16 11/23/2017 ANA L Primary Insurance:MMO ANA L [place] [id number] N MEDICAREPolicy BOREMANDOB: [facility] JOSE Number: [id number], [place] [id number] Repository 81995Vmj: (330) Date:9341-37-37BW [address]8704 (HP) [address] [place] [phone]: 11/23/2017 Secondary NOT GIVENUNK [place] Insurance:SELF PAY [facility] Number: Effective Repository Date:2017-11-23 10/27/2017 ANA L Primary Insurance:MMO ANA L [place] [id number] N MEDICAREPolicy BOREMANDOB: [facility] JOSE Number: [id number], [place] [id number] Repository 82584Ngw: (330) Date:2949-80-12IZ [address]9259 (HP) [address] [place] [phone]: 10/27/2017 Secondary NOT GIVENUNK [place] Insurance:SELF PAY [facility] Number: Effective Repository Date:2017-10-27 09/09/2017 ANA [place] Primary Insurance:MMO ANA [place] [id number] N MEDICAREPolicy BOREMANDOB: Community DURAND Number: [id number], [place] [id number] Repository 09018Yej: (330) Date:5800-01-23LA [phone] ( [place], [place] [address]TT: 09/09/2017 Secondary NOT GIVENUNK [place] Insurance:SELF PAY [facility] Number: Effective Repository Date:2017-09-09
== END ==
PROVIDERS: Family Provider Family Medicine; PCP Family Medicine; Referring Provider Nurse Practitioner Acute Care; Visit Provider Nurse Practitioner Acute Care
DX: R06.02 Shortness of breath (principal); Z98.890 Other specified postprocedural states
CPT/HCPCS: 36415; 82728; 83540; 83550; 85025

== ENCOUNTER → 2018-05-04 14:49 | Outpatient (CLI) | payer MEDICARE, SELFPAY ==
[2018-03-24 09:24] VITALS: BMI 46.3
== END ==
PROVIDERS: Family Provider Family Medicine; PCP Family Medicine; Referring Provider Nurse Practitioner Acute Care; Visit Provider Nurse Practitioner Acute Care
DX: Z09 Encounter for follow-up examination after completed treatment for conditions other than malignant neoplasm (principal)
CPT/HCPCS: 98960; G0463

== ENCOUNTER → 2018-05-31 09:17 | Outpatient (CLI) | payer MEDICARE, SELFPAY ==
[2018-03-24 09:24] VITALS: BMI 46.3
[2018-05-31 09:52] LABS: AST(SGOT) 41 U/L (15-37); Alanine Aminotransfer ALT/SGPT 19 U/L (13-56); Albumin, Serum 3.6 g/dL (3.2-5.0); Alkaline Phosphatase 126 U/L (45-117); Bilirubin, Direct 0.12 mg/dL (0.00-0.30); Cholesterol 168 mg/dL (200); Globulin 3.6 g/dL (2.2-4.2); High Density Lipoprotein 49 mg/dL; Protein, Total 7.2 g/dL (6.4-8.2); Triglycerides 90 mg/dL; Very Low Density Lipoprotein 18 mg/dL (5-40)
== END ==
PROVIDERS: Family Provider Family Medicine; PCP Family Medicine; Visit Provider Internal Medicine Cardiovascular Disease
DX: I25.10 Atherosclerotic heart disease of native coronary artery without angina pectoris (principal)
CPT/HCPCS: 36415; 80061; 80076

== ENCOUNTER → 2018-10-13 16:33 | Outpatient (CLI) | payer MEDICARE, SELFPAY ==
[2018-05-31 10:25] VITALS: BMI 45.8
--- NOTE | 2018-10-13 16:36 | RAD_ITS ---
STUDY: X-RAY - PELVIS AND RIGHT HIP REASON FOR EXAM: Female, 68 years old. Pain TECHNIQUE: 3 views of the pelvis and hip. COMPARISON: None. FINDINGS: There is a non-specific bowel gas pattern. Normal visualized soft tissue structures. Normal bilateral iliac wings, sacroiliac joints and visualized sacrum. Normal bilateral superior and inferior pubic rami. Normal pubic symphysis. Normal bilateral ischial tuberosities. Normal visualized femoral head. Normal acetabulum. Normal hip joint. RAD/HIP, UNI W/ Pelvis 2-3 Views IMPRESSION: Normal x-ray examination of the pelvis and hip. Electronically Signed: Scott Michaels MD at 22:18 EDT , Service support ,
== END ==
PROVIDERS: Family Provider Family Medicine; PCP Family Medicine; Referring Provider Family Medicine; Visit Provider Family Medicine
DX: M25.551 Pain in right hip (principal)
CPT/HCPCS: 73502

== ENCOUNTER → 2019-07-20 08:11 | Outpatient (CLI) | payer MEDICARE, SELFPAY ==
[2019-07-13 09:49] VITALS: BMI 46.8
[2019-07-20 10:42] LABS: AST(SGOT) 39 U/L (15-37); Alanine Aminotransfer ALT/SGPT 18 U/L (13-56); Albumin, Serum 3.5 g/dL (3.2-5.0); Alkaline Phosphatase 98 U/L (45-117); Anion Gap 6 (5-15); BUN 17 mg/dL (7-18); BUN/Creat Ratio 22.3 RATIO (10-20); Bilirubin, Direct 0.14 mg/dL (0.00-0.30); Chloride 109 mmol/L (98-107); Cholesterol 156 mg/dL (200); Creatinine, Serum 0.76 mg/dL (0.55-1.02); EST Glomerular Filtration Rate 80 mL/min (>60); Est Glom Filt Rate - Afr Amer 97 mL/min (>60); Globulin 3.2 g/dL (2.2-4.2); Glucose 101 mg/dL (74-106); High Density Lipoprotein 45 mg/dL; Potassium 4.1 mmol/L (3.5-5.1); Protein, Total 6.7 g/dL (6.4-8.2); Sodium Level 142 mmol/L (136-145); Triglycerides 127 mg/dL; Very Low Density Lipoprotein 25 mg/dL (5-40)
== END ==
PROVIDERS: Internal Medicine Cardiovascular Disease; PCP Family Medicine; Referring Provider Family Medicine; Visit Provider Family Medicine
DX: E78.5 Hyperlipidemia, unspecified (principal); I25.10 Atherosclerotic heart disease of native coronary artery without angina pectoris; Z13.1 Encounter for screening for diabetes mellitus
CPT/HCPCS: 36415; 80048; 80061; 80076

== ENCOUNTER → 2019-07-26 08:28 | Outpatient (CLI) | payer MEDICARE, SELFPAY ==
[2019-06-20 08:15] VITALS: BMI 46.6
[2019-07-13 09:49] VITALS: BMI 46.8
--- NOTE | 2019-07-26 08:30 | ECHOCS_ITS ---
Reason For Study: PHTN Procedure This was a 2D Doppler, Color Flow transthoracic echocardiogram. Contrast injection was performed. The study was technically difficult. Exam performed in department. Left Ventricle Normal size and thickness. The estimated ejection fraction is 65 %. Stage 2 diastolic dysfunction. No regional wall motion abnormalities noted. Right Ventricle Moderately dilated right ventricle. Normal systolic function. Atria Normal left atrium. Normal right atrium. Normal atrial septum. Mitral Valve Mild diffuse mitral valve thickening. Tricuspid Valve Normal tricuspid valve. Mild (1+) tricuspid valve insufficiency. Right ventricular systolic pressure estimated to be 42 mmHg. Mild pulmonary hypertension. Aortic Valve Trisinus/trileaflet aortic valve. Mild focal aortic valve thickening. There is no aortic stenosis. Pulmonic Valve Normal pulmonic valve. Trivial pulmonic valve insufficiency. Great Vessels Normal aortic root. Normal arch. Normal inferior vena cava. Inferior vena cava collapse with sniff. Pericardium/Pleural No pericardial effusion. Medication 22 gauge I.V. with prn adaptor inserted into right arm. Diluted definity 2.0ml given slow IV push to enhance endocardial definition. MMode/2D Measurements & Calculations LVIDd: 4.3 cm IVSd: 0.96 cm Ao root diam: 3.5 cm LVIDs: 2.6 cm LVPWd: 0.93 cm RVDd: 4.2 cm FS: 40.4 % LAV(MOD-bp): 57.6 ml LVAd ap4: 34.5 cm2 SV(MOD-sp4): 88.2 ml LAV(MOD-bp) Indexed: 28.0 ml/m2 EDV(MOD-sp4): 117.0 ml LAV(MOD-sp2): 56.0 ml EDV(sp4-el): 123.7 ml LAV(MOD-sp4): 51.6 ml LVAs ap4: 14.3 cm2 ESV(MOD-sp4): 28.8 ml ESV(sp4-el): 28.4 ml EF(MOD-sp4): 75.4 % EF(sp4-el): 77.1 % SV(sp4-el): 95.4 ml LA A4 area: 19.5 cm2 LA dimension(2D): 4.7 cm RA A4 area: 15.8 cm2 Time Measurements MV dec time: 0.21 sec Doppler Measurements & Calculations MV E max juan jose: 135.4 cm/sec Lat Peak E' Juan Jose: 8.6 cm/sec Med Peak E' Juan Jose: 8.5 cm/sec MV A max juan jose: 102.0 cm/sec E/E' lat: 15.8 E/E' med: 16.0 MV E/A: 1.3 Ao V2 max: 243.0 cm/sec LV V1 max: 155.3 cm/sec PA V2 max: 115.1 cm/sec Ao max P.6 mmHg LV V1 max P.6 mmHg PI end-d juan jose: 96.7 cm/sec TR max juan jose: 301.5 cm/sec TR max P.4 mmHg Interpretation Summary The estimated ejection fraction is 65 %. Stage 2 diastolic dysfunction. Moderately dilated right ventricle. Mild (1+) tricuspid valve insufficiency. Right ventricular systolic pressure estimated to be 42 mmHg. Mild pulmonary hypertension. Compared to echo report dated 11/23/2017, no appreciable changes noted. The study was technically difficult. Contrast injection was performed. Ordering Physician: Luis Andrews Referring Physician: VANI SALGUERO Performed By: Judith Morton, GEOVANNA, RVT
== END ==
PROVIDERS: PCP Family Medicine; Referring Provider Internal Medicine Cardiovascular Disease; Visit Provider Internal Medicine Cardiovascular Disease
DX: I27.20 Pulmonary hypertension, unspecified (principal)
CPT/HCPCS: 93306; Q9957; A4216; C8929

== ENCOUNTER → 2019-08-09 08:22 | Outpatient (CLI) | payer MEDICARE, SELFPAY ==
[2019-07-13 09:49] VITALS: BMI 46.8
--- NOTE | 2019-08-09 08:25 | BI_ITS ---
MAMMOGRAPHY - BILATERAL SCREENING REASON FOR EXAM: Female, 69 years old. Routine annual screening examination. PERTINENT HISTORY: Grandmother with breast cancer. Remote left stereotactic breast biopsy. TECHNIQUE: Digital bilateral breast ga (3D mammographic acquisition) in the CC and MLO projections. 2-D mediolateral oblique (MLO) and craniocaudad (CC) views of both breasts were obtained. CAD: Full Field Digital Mammography with Computer Added Detection was performed. COMPARISON: Comparison is made with prior examination dated February 03, 2017 and April 16, 2015. FINDINGS: Breast Composition: The breasts are heterogeneously dense, which may obscure small masses. There are no dominant masses or suspicious calcifications. Stable benign-appearing bilateral axillary lymph nodes. No other significant abnormalities are identified. There has been no significant change since the prior study. BI/SCREEN MAMM (CAD) W/GA BILAT IMPRESSION: Stable bilateral screening mammogram. Yearly follow-up mammogram recommended. (A) ASSESSMENT CATEGORY: BIRADS Category 2: Benign. A letter regarding these results will be sent to the patient by the facility within 30 days. Approximately 10% of breast cancers are not detected by mammography. A normal mammogram should not delay biopsy of a clinically suspicious abnormality. [id number] Electronically Signed: Jr Maddox, at 9:41 EDT , Service support ,
== END ==
PROVIDERS: PCP Family Medicine; Referring Provider Family Medicine; Visit Provider Family Medicine
DX: Z12.31 Encounter for screening mammogram for malignant neoplasm of breast (principal)
CPT/HCPCS: 77063; 77067

== ENCOUNTER → 2020-11-19 13:07 | Outpatient (CLI) | payer MEDICARE, SELFPAY ==
[2020-03-13 09:21] VITALS: BMI 48.0
--- NOTE | 2020-11-19 14:50 | NEURO ---
NCS and/or EMG Patient Report Ordering Doctor: Trena Torres DATE OF SERVICE: 11/19/20 Indication: Progressive numbness of the first three digits on the left hand. Evaluate for median neuropathy at the wrist. Findings: Nerve conduction studies were performed in the left upper extremity. The left median motor study recording the abductor pollicis brevis showed a normal amplitude, prolonged distal latency and mildly slowed conduction velocity. The left ulnar motor study recording the abductor digiti minimi showed a normal amplitude, normal distal latency and normal conduction velocity. No conduction block or focal slowing was present across the elbow. The left median sensory response recording digit two showed a normal amplitude, prolonged latency and markedly slowed conduction velocity. The left ulnar sensory response recording digit five showed a normal amplitude, latency and conduction velocity. The left radial sensory response recording over the extensor snuff box showed a normal amplitude, latency and conduction velocity. Left median-ulnar lumbrical / interosseous motor latencies showed a prolonged median latency compared to the ulnar. Needle EMG of the left upper extremity and cervical paraspinal muscles was performed. No denervation was seen in any muscle. In the abductor pollicis brevis, motor units were large amplitude, long duration with slightly reduced recruitment. All other motor unit morphology, activation and recruitment patterns were normal. Impression: This is an abnormal study. 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 These findings are compatible with the clinical diagnosis of carpal tunnel syndrome. In addition, there is no electrophysiologic evidence of a superimposed cervical radiculopathy or other entrapment neuropathy in the left upper extremity. Bruce Trujillo D.O. Multi Select Codes Neurology Neurology Interp Codes: 61085-39 [facility] [place] (interp) and 01671-18 [facility] cnd test 7-8 studies (interp)
== END ==
PROVIDERS: PCP Family Medicine; Referring Provider Family Medicine; Visit Provider Family Medicine
DX: G56.02 Carpal tunnel syndrome, left upper limb (principal)
CPT/HCPCS: 95886; 95910

== ENCOUNTER → 2021-02-04 10:15 | Outpatient (CLI) | payer MEDICARE, SELFPAY ==
[2021-02-04 11:44] LABS: AST(SGOT) 40 U/L (15-37); Alanine Aminotransfer ALT/SGPT 20 U/L (13-56); Albumin, Serum 3.4 g/dL (3.2-5.0); Alkaline Phosphatase 102 U/L (45-117); Anion Gap 3 (5-15); BUN 18 mg/dL (7-18); BUN/Creat Ratio 24.9 RATIO (10-20); Bilirubin, Direct 0.12 mg/dL (0.00-0.30); Calcium,Total 9.4 mg/dL (8.5-10.1); Chloride 108 mmol/L (98-107); Cholesterol 187 mg/dL (200); Creatinine, Serum 0.72 mg/dL (0.55-1.02); EST Glomerular Filtration Rate 85 mL/min (>60); Est Glom Filt Rate - Afr Amer 103 mL/min (>60); Globulin 3.7 g/dL (2.2-4.2); Glucose 100 mg/dL (74-106); High Density Lipoprotein 47 mg/dL; Potassium 4.3 mmol/L (3.5-5.1); Protein, Total 7.1 g/dL (6.4-8.2); Sodium Level 141 mmol/L (136-145); Triglycerides 87 mg/dL; Very Low Density Lipoprotein 17 mg/dL (5-40)
== END ==
PROVIDERS: Referring Provider Internal Medicine Cardiovascular Disease; Visit Provider Internal Medicine Cardiovascular Disease
DX: E78.00 Pure hypercholesterolemia, unspecified (principal); I27.20 Pulmonary hypertension, unspecified
CPT/HCPCS: 36415; 80048; 80061; 80076

== ENCOUNTER → 2021-02-12 12:34 | Outpatient (CLI) | payer MEDICARE, SELFPAY ==
--- NOTE | 2021-02-12 12:35 | ECHOCS_ITS ---
Reason For Study: Murmur Procedure This was a 2D Doppler, Color Flow transthoracic echocardiogram. Technically difficult due to patients body habitus. Contrast injection performed. The study was technically difficult. Contrast injection was performed. Exam performed in department. Left Ventricle Normal LV size. Left ventricular systolic function is normal. The estimated ejection fraction is 70 %. Diastolic function is indeterminate. No regional wall motion abnormalities noted. Right Ventricle Mildly dilated right ventricle. Normal systolic function. Atria The left atrium is mildly enlarged. Normal right atrium. No doppler evidence for ASD. Mitral Valve There is no mitral annular calcification. Normal mitral valve. Trivial mitral valve insufficiency. Tricuspid Valve Normal tricuspid valve. Trivial tricuspid valve insufficiency. Right ventricular systolic pressure estimated to be 43 mmHg. Aortic Valve Trisinus/trileaflet aortic valve. Mild focal aortic valve calcification. Pulmonic Valve The pulmonic valve is not well visualized. Trivial pulmonic valve insufficiency. Great Vessels The aortic valve is not well visualized. Pericardium/Pleural No pericardial effusion. Medication 22 gauge I.V. with prn adaptor inserted into right arm. Diluted definity 2ml given slow IV push to enhance endocardial definition. MMode/2D Measurements & Calculations LVIDd: 4.5 cm IVSd: 1.1 cm LVOT diam: 2.0 cm LVIDs: 2.2 cm LVPWd: 0.99 cm FS: 51.7 % LVOT area: 3.0 cm2 LA dimension: 4.3 cm LAV(MOD-bp): 46.5 ml LA A4 area: 20.0 cm2 LAV(MOD-bp) Indexed: 22.6 ml/m2 LAV(MOD-sp2): 34.9 ml LAV(MOD-sp4): 59.7 ml Time Measurements MV dec time: 0.22 sec Doppler Measurements & Calculations MV E max juan jose: 122.3 cm/sec Lat Peak E' Juan Jose: 6.3 cm/sec Med Peak E' Juan Jose: 7.6 cm/sec MV A max juan jose: 109.1 cm/sec E/E' lat: 19.3 E/E' med: 16.1 MV E/A: 1.1 MV V2 max: 150.2 cm/sec MV P1/2t max juan jose: 151.2 cm/sec Ao V2 max: 258.0 cm/sec MV max P.0 mmHg MV P1/2t: 68.0 msec Ao max P.7 mmHg MV V2 mean: 71.5 cm/sec MV dec slope: 651.4 cm/sec2 Ao V2 mean: 163.5 cm/sec MV mean P.5 mmHg Ao mean P.6 mmHg MV V2 VTI: 50.9 cm MVA(P1/2t): 3.2 cm2 Ao V2 VTI: 57.9 cm MVA(VTI): 2.4 cm2 TERA(I,D): 2.1 cm2 TERA(V,D): 2.0 cm2 LV V1 max: 169.2 cm/sec SV(LVOT): 124.2 ml PA V2 max: 108.8 cm/sec LV V1 max P.5 mmHg LV V1 mean P.0 mmHg LV V1 mean: 114.6 cm/sec LV V1 VTI: 41.0 cm TR max juan jose: 315.1 cm/sec TR max P.7 mmHg ECHO/Echo Complete W/ Contrast Interpretation Summary The study was technically difficult. Contrast injection was performed. Left ventricular systolic function is normal. The estimated ejection fraction is 70 %. Mildly dilated right ventricle. Trivial mitral valve insufficiency. Trivial tricuspid valve insufficiency. Mild focal aortic valve calcification. Trivial pulmonic valve insufficiency. Right ventricular systolic pressure estimated to be 43 mmHg. Diastolic function is indeterminate. Ordering Physician: Anthony Gannon Referring Physician: no PCP noted Performed By: Luis Brumfield RCS
== END ==
PROVIDERS: Referring Provider Internal Medicine Cardiovascular Disease; Visit Provider Internal Medicine Cardiovascular Disease
DX: R01.1 Cardiac murmur, unspecified (principal)
CPT/HCPCS: 93306; Q9957; A4216; C8929

== ENCOUNTER 2021-05-20 09:44 | Outpatient (CLI) | payer MEDICARE, SELFPAY ==
[2021-05-20 11:30] LABS: AST(SGOT) 39 U/L (15-37); Alanine Aminotransfer ALT/SGPT 20 U/L (13-56); Albumin, Serum 3.5 g/dL (3.2-5.0); Alkaline Phosphatase 101 U/L (45-117); Bilirubin, Direct 0.15 mg/dL (0.00-0.30); Cholesterol 137 mg/dL (200); Globulin 3.6 g/dL (2.2-4.2); High Density Lipoprotein 49 mg/dL; Protein, Total 7.1 g/dL (6.4-8.2); Triglycerides 92 mg/dL; Very Low Density Lipoprotein 18 mg/dL (5-40)
== END 2021-05-20 23:59 | disposition home or self-care (01) ==
LOC: LAB 09:45
PROVIDERS: Visit Provider Internal Medicine Cardiovascular Disease
DX: I25.10 Atherosclerotic heart disease of native coronary artery without angina pectoris (principal); E78.5 Hyperlipidemia, unspecified
CPT/HCPCS: 36415; 80061; 80076

== ENCOUNTER → 2021-08-06 | Outpatient (CLI) | payer MEDICARE, SELFPAY ==
[2021-08-06 16:00] LABS: Absolute Lymphocyte Count 1.63 X10^3/uL (0.83-4.51); Absolute Neutrophil Count 3.7 X10^3/uL (2.0-7.7); Basophil% 1.6 % (0-1); Eosinophil# 0.36 X10^3/uL; Eosinophils% 5.7 % (0-5); Hematocrit 36.9 % (37-47); Hemoglobin 11.7 g/dL (12.0-15.0); Lymphocyte # 1.63 X10^3/ul (0.83-4.51); Lymphocyte % 25.8 % (19-41); Mean Corp Hgb Conc 31.7 g/dL (32-36); Mean Corpuscular Hgb 28.7 pg (27.0-32.0); Mean Corpuscular Volume 90.7 fL (81-99); Mean Platelet Vol. 10.4 fl (6.2-12.0); Monocyte# 0.49 X10^3/uL; Monocyte% 7.8 % (0-10); NRBC Flagged by Analyzer 0 % (0-5); Neutrophil # 3.71 X10^3/uL (2.7-7.7); Neutrophil % 58.6 % (47-70); Platelet Count 221 K/mm3 (150-450); RBC Distribution Width CV 12.7 % (11.6-14.6); RBC Distribution Width SD 41.9 fl (35.1-43.9); Red Blood Count 4.07 M/mm3 (4.2-5.4); White Blood Count 6.3 K/mm3 (4.4-11.0)
[2021-08-06 16:35] LABS: Anion Gap 5 (5-15); BUN 16 mg/dL (7-18); BUN/Creat Ratio 19.8 RATIO (10-20); Calcium,Total 9.1 mg/dL (8.5-10.1); Chloride 107 mmol/L (98-107); Creatinine, Serum 0.81 mg/dL (0.55-1.02); EST Glomerular Filtration Rate 75 mL/min (>60); Est Glom Filt Rate - Afr Amer 90 mL/min (>60); Glucose 124 mg/dL (74-106); Potassium 3.7 mmol/L (3.5-5.1); Sodium Level 140 mmol/L (136-145); Thyroid Stim Hormone (TSH) 1.07 uIU/mL (0.358-3.74)
[2021-08-06 17:46] LABS: BNP,B-Type NATRIURETIC PEPTIDE 130.3 pg/mL (0-100)
== END | disposition home or self-care (01) ==
PROVIDERS: Referring Provider Physician Assistant Medical; Visit Provider Physician Assistant Medical
DX: I25.10 Atherosclerotic heart disease of native coronary artery without angina pectoris (principal); I27.20 Pulmonary hypertension, unspecified; I35.0 Nonrheumatic aortic (valve) stenosis; R06.02 Shortness of breath; E78.5 Hyperlipidemia, unspecified
CPT/HCPCS: 36415; 80048; 83880; 84443; 85025

== ENCOUNTER → 2021-11-05 | Outpatient (CLI) | payer MEDICARE, SELFPAY ==
[2021-11-05 12:01] LABS: AST(SGOT) 40 U/L (15-37); Alanine Aminotransfer ALT/SGPT 20 U/L (13-56); Albumin, Serum 3.3 g/dL (3.2-5.0); Alkaline Phosphatase 108 U/L (45-117); Bilirubin, Direct 0.14 mg/dL (0.00-0.30); Cholesterol 150 mg/dL (200); Globulin 3.6 g/dL (2.2-4.2); High Density Lipoprotein 46 mg/dL; Protein, Total 6.9 g/dL (6.4-8.2); Triglycerides 113 mg/dL; Very Low Density Lipoprotein 23 mg/dL (5-40)
[2021-11-05 12:03] LABS: Anion Gap 5 (5-15); BUN 12 mg/dL (7-18); BUN/Creat Ratio 14.9 RATIO (10-20); Calcium,Total 9.7 mg/dL (8.5-10.1); Chloride 107 mmol/L (98-107); Creatinine, Serum 0.81 mg/dL (0.55-1.02); EST Glomerular Filtration Rate 75 mL/min (>60); Est Glom Filt Rate - Afr Amer 91 mL/min (>60); Glucose 106 mg/dL (74-106); Potassium 4.5 mmol/L (3.5-5.1); Sodium Level 141 mmol/L (136-145)
== END | disposition home or self-care (01) ==
LOC: LAB 11:12
PROVIDERS: Internal Medicine Cardiovascular Disease; Referring Provider Physician Assistant Medical; Visit Provider Physician Assistant Medical
DX: R06.00 Dyspnea, unspecified (principal); E78.00 Pure hypercholesterolemia, unspecified; E78.5 Hyperlipidemia, unspecified
CPT/HCPCS: 36415; 80048; 80061; 80076

== ENCOUNTER → 2021-12-03 | Outpatient (CLI) | payer MEDICARE, SELFPAY ==
--- NOTE | 2021-12-03 09:01 | STRESSREP_ITS ---
Stress Test Report Date: 12-03-2021 Procedure: Pharmacologic stress nuclear imaging study Indications: Shortness of breath/dyspnea on exertion; CAD; aortic valve stenosis; COPD/THANH; pulmonary hypertension; hyperlipidemia Consent: Per the patient Procedure: The patient underwent pharmacologic (Regadenoson 0.4mg ) evaluation with a peak heart rate of 72 beats per minute (47%predicted maximal heart rate) and a peak blood pressure of 148/80 mmHg. The baseline ECG demonstrated sinus bradycardia. The peak pharmacologic ECG demonstrated no obvious ECG changes. There were no cardiac dysrhythmias pretest, during pharmacologic infusion, or recovery. There was no complaint of chest discomfort during pharmacologic infusion or recovery. The examination was discontinued secondary to completion of protocol. Impression: 1. Pharmacologic (Regadenoson) evaluation 2. Peak pharmacologic ECG with no obvious ECG changes. 3. There were no cardiac dysrhythmias pretest, during pharmacologic infusion, or recovery. 4. Nuclear images pending Myocardial perfusion imaging study: Technique: The patient was injected with 14.5 millicuries of technetium 99m Cardiolite and subsequently rest SPECT Cardiolite nuclear imaging was obtained in the horizontal long, vertical long, and short axis views. The patient underwent pharmacologic (Regadenoson) evaluation with a peak heart rate of 72 beats per minute (47% percent predicted maximal heart rate) and a peak blood pressure of 148/mmHg. The patient was injected with 44.8 millicuries of technetium 99m Cardiolite and subsequently stress SPECT Cardiolite nuclear imaging was obtained in the horizontal long, vertical long, and short axis views. A gated Cardiolite study at peak stress was obtained. Interpretation: Rest and stress SPECT Cardiolite nuclear imaging status post realignment, normalization, and attenuation correction demonstrate the appearance of extracardiac/gastrointestinal tracer uptake near the inferior segments and on the preattenuation correction images the appearance of an area of diminished tracer uptake in the mid to distal anterior segments which appears to be somewhat more prominent following stress as opposed to rest and on the post attenuation correction images and area of diminished tracer uptake in the mid to distal anterior segments. There is end systolic thickening and brightening. The gated Cardiolite study demonstrates myocardial thickening and inward wall motion. The reported LVEF is 83%. Impression: 1. Rest and stress SPECT her nuclear imaging demonstrate the appearance of extracardiac/gastrointestinal tracer uptake in inferior segments and findings compatible with elements of diminished myocardial perfusion/tracer uptake on both the preattenuation correction images and the post attenuation correction images in the mid to distal anterior segments which appears to be somewhat more prominent following stress as opposed to rest potentially compatible with the effects of soft tissue attenuation/artifact, however, an element of myocardial ischemia cannot necessarily be excluded.. 2. The gated Cardiolite study reports an LVEF of 83%. This note was generated with [employer] software. It may contain incorrect words, spelling, and punctuation that were not noted in checking the note before signing.
== END | disposition home or self-care (01) ==
LOC: CVS 05:58
PROVIDERS: Referring Provider Physician Assistant Medical; Visit Provider Physician Assistant Medical
DX: R06.09 Other forms of dyspnea (principal)
CPT/HCPCS: 78452; 93017; A9500; A4216; J2785

== ENCOUNTER → 2021-12-23 | Outpatient (CLI) | payer MEDICARE, SELFPAY ==
[2021-12-23 13:03] VITALS: BP 169/63; PULSE 51; RESP 18; TEMP 35.8; O2SAT 97; BMI 47.2
[2021-12-23 13:34] VITALS: BP 182/60; PULSE 57
[2021-12-23] MEDS: Nitroglycerin SL (ED/IMG/CATH) 0.4 MG TABLET SL (13:34)
[2021-12-23] MEDS: 0.9% Saline Lock 10 ML Syringe IV (13:44)
--- NOTE | 2021-12-23 13:44 | CT_ITS ---
STUDY: CARDIAC CALCIUM SCORING - CT CHEST REASON FOR EXAM: Female, 71 years old. ABN STRESS TEST. Chest over read only. RADIATION DOSAGE (If Supplied By Facility): CTDIvol = ( 24.80 ) mGy, DLP = ( 1351.59 ) mGycm TECHNIQUE: Axial non-enhanced images were acquired through the heart for the sole purpose of measuring coronary artery calcium. Individualized dose optimization techniques were used for this CT. COMPARISON: None. FINDINGS: Atherosclerotic plaque formation of the aortic arch and origin of the right brachiocephalic artery. Coronary artery calcification. Small benign-appearing mediastinal lymph nodes. The lungs are clear. Degenerative changes of the thoracic spine. Small hiatal hernia. CT/Limited Chest CT Cardiac Only IMPRESSION: Coronary artery calcification. The lungs are clear. Please go to: [email or web address] , for a description of the calculator. Electronically Signed: Jr Maddox MD at 9:23 EDT ,
[2021-12-23 14:10] LABS: CREATININE FINGERSTICK 1.1 mg/dL (0.55-1.02)
--- NOTE | 2021-12-24 18:01 | CCTA_ITS ---
CCTA w/Cont Coronary Arteries Date of Study:: 12/23/21 CAD Consent:: Per Patient High-resolution Computed Tomographic imaging of the chest was performed on 12-23-2021 with particular attention paid to the coronary arteries. Images from the examination were analyzed for the presence and extent of coronary artery ca lcification , using coronary calcium quantification software, as well as the presence of atherosclerotic disease. The patient tolerated the procedure well and there were no complications. The results of the coronary calcification analysis are provided below.? LEFT MAIN CORONARY ARTERY: The left main coronary artery appears to be a large vessel giving rise to the left anterior descending and left circumflex coronary arteries. The left main coronary artery appears to be patent with no angiographically significant appearing obstructive disease. LEFT ANTERIOR DESCENDING CORONARY ARTERY: The left anterior descending coronary artery appears to be a large vessel coursing toward the LV apex. The left anterior descending coronary artery appears to demonstrate mid mild to moderate eccentric partially obstructive calcified and noncalcified plaque. LEFT CIRCUMFLEX CORONARY ARTERY: The left circumflex coronary artery appears to be a large vessel giving rise to an obtuse marginal branching system. The left circumflex coronary artery appears to demonstrate mid mild to moderate eccentric partially obstructive calcified and noncalcified plaque. RIGHT CORONARY ARTERY: The right coronary appears to be a large dominant vessel. The right coronary appears to demonstrate proximal mild eccentric partially obstructive calcified and noncalcified plaque. THORACIC AORTA: The thoracic aorta demonstrates eccentric calcification in the aortic root/ascending thoracic aorta as well as the descending thoracic aorta. PULMONARY ARTERY: The main pulmonary artery and proximal portions of the right and left pulmonary appear to be patent with no obvious filling defects. LEFT ATRIUM/APPENDAGE: The left atrial appendage appears to be patent with no obvious filling defects. MITRAL VALVE: The mitral valve appears to be bileaflet. AORTIC VALVE: The aortic valve appears to be trileaflet. LEFT VENTRICLE: The left ventricle appears to demonstrate grossly normal left ventricular systolic function. The LVEF is reported at 75%. CORONARY CALCIUM SCORE: The coronary calcium score was reported at 242. According to prepublished reference tables a coronary calcium score of 242 would be indicative of moderate plaque burden with moderate nonobstructive coronary disease being considered highly likely. This note was generated using a voice recognition system and there may be incorrect words, spelling or punctuation that were not noted when reviewing the office note prior to saving.
--- NOTE | 2021-12-24 18:15 | CA.SCORE ---
Calcium Scoring Date of Study:: 12/23/21 Indications Indications: CAD Coronary Calcium Scoring: High-resolution Computed Tomographic imaging of the chest was performed on 12-23-2021 with particular attention paid to the coronary arteries. Images from the examination were analyzed for the presence and extent of coronary artery calcification , using coronary calcium quantification software. The patient tolerated the procedure well and there were no complications. The results of the coronary calcification analysis are provided below. Findings Coronary Artery Left Main (LM): 130 Left Anterior Descending (LAD): 0 Left Circumflex (LCX): 63 Right Coronary Artery (RCA): 48.9 Total Agatston Score: 241.9 Percentile Ranking: According to prepublished reference tables between 75% and 90% of patients of the same gender and similar age had the same and/or lower scores. Calcium Scoring Interpretation: 0 No identifiable atherosclerotic plaque. Very low cardiovascular disease risk. <5% chance of presence coronary artery disease A Negative Examination 1-10 Minimal Plaque burden. Significant coronary artery disease very unlikely. 11-100 Mild plaque burden. Likely mild or minimal coronary atherosclerosis. 101-400 Moderate plaque burden Moderate non-obstructive coronary artery disease highly likely. Over 400 Extensive plaque burden. High likelihood of at least one significant coronary stenosis (>50% diameter) Calcium Score: 101 - 400 Moderate non-obstructive coronary artery disease highly like Conclusion: The patient denies symptoms considered classic for angina pectoris, CHF / pulmonary edema (with respect to orthopnea / PND), ongoing palpitations, or near syncope / syncope.
== END | disposition home or self-care (01) ==
PROVIDERS: Referring Provider Internal Medicine Cardiovascular Disease; Visit Provider Internal Medicine Cardiovascular Disease
DX: I25.10 Atherosclerotic heart disease of native coronary artery without angina pectoris (principal)
CPT/HCPCS: 75571; 75574; 76380; Q9967

== ENCOUNTER → 2021-12-24 | Outpatient (CLI) | payer MEDICARE, SELFPAY | END | disposition home or self-care (01) | LOC: SL 11:11 | PROVIDERS: Referring Provider Internal Medicine Critical Care Medicine; Visit Provider Internal Medicine Critical Care Medicine | DX: G47.33 Obstructive sleep apnea (adult) (pediatric) (principal) | CPT/HCPCS: 98960; G0463 ==

== ENCOUNTER → 2022-01-02 | Outpatient (CLI) | payer MEDICARE, SELFPAY ==
--- NOTE | 2022-01-02 09:40 | ECHOD_ITS ---
Reason For Study: VAUGHAN Procedure This was a 2D Doppler, Color Flow transthoracic echocardiogram. The study was technically difficult. Due to body habitus and coughing. Exam performed in department. Left Ventricle Normal LV size. Left ventricular systolic function is normal. The estimated ejection fraction is 65 %. Stage 2 diastolic dysfunction. No regional wall motion abnormalities noted. Right Ventricle Normal RV size. Normal systolic function. Atria The left atrium is mildly enlarged. Normal right atrium. No doppler evidence for ASD. Mitral Valve There is no mitral annular calcification. Normal mitral valve. The mitral valve chordae are thickened and/or calcified. Trivial mitral valve insufficiency. Tricuspid Valve Normal tricuspid valve. Trivial tricuspid valve insufficiency. Right ventricular systolic pressure estimated to be 39 mmHg. Aortic Valve The aortic valve leaflets are not well visualized, however, based upon the 2D echocardiographic images obtained there appears to be focal thickening, calcification, and partial restriction. Mild aortic stenosis. Pulmonic Valve The pulmonic valve is not well visualized. Mild (1+) pulmonic valve insufficiency. Great Vessels Normal sized aortic root. Pericardium/Pleural No pericardial effusion. MMode/2D Measurements & Calculations LVIDd: 4.5 cm IVSd: 1.00 cm LVOT diam: 1.8 cm LVIDs: 2.8 cm LVPWd: 1.1 cm LVOT area: 2.5 cm2 RVDd: 3.2 cm FS: 37.5 % Ao root diam: 3.0 cm LAV(MOD-bp): 59.2 ml LA A4 area: 21.7 cm2 LAV(MOD-bp) Indexed: 28.5 ml/m2 LAV(MOD-sp2): 54.3 ml LAV(MOD-sp4): 64.2 ml LA dimension(2D): 4.0 cm RA A4 area: 16.8 cm2 Time Measurements MV dec time: 0.18 sec Doppler Measurements & Calculations MV E max juan jose: 143.2 cm/sec Lat Peak E' Juan Jose: 7.6 cm/sec Med Peak E' Juan Jose: 7.3 cm/sec MV A max juan jose: 99.9 cm/sec E/E' lat: 18.8 E/E' med: 19.8 MV E/A: 1.4 MV V2 max: 155.1 cm/sec MV P1/2t max juan jose: 151.0 cm/sec Ao V2 max: 242.2 cm/sec MV max P.6 mmHg MV P1/2t: 55.8 msec Ao max P.5 mmHg MV V2 mean: 72.9 cm/sec MV dec slope: 792.8 cm/sec2 Ao V2 mean: 168.6 cm/sec MV mean P.6 mmHg Ao mean P.9 mmHg MV V2 VTI: 49.3 cm MVA(P1/2t): 3.9 cm2 Ao V2 VTI: 61.6 cm MVA(VTI): 1.9 cm2 TERA(I,D): 1.5 cm2 TERA(V,D): 1.5 cm2 LV V1 max: 143.5 cm/sec MR max juan jose: 514.2 cm/sec SV(LVOT): 92.1 ml LV V1 max P.2 mmHg MR max P.8 mmHg LV V1 mean P.8 mmHg LV V1 mean: 104.7 cm/sec LV V1 VTI: 36.5 cm PA V2 max: 120.6 cm/sec TR max juan jose: 293.9 cm/sec TR max P.7 mmHg ECHO/Echo Complete Interpretation Summary The study was technically difficult. Left ventricular systolic function is normal. The estimated ejection fraction is 65 %. The left atrium is mildly enlarged. The mitral valve chordae are thickened and/or calcified. Trivial mitral valve insufficiency. Trivial tricuspid valve insufficiency. The aortic valve leaflets are not well visualized, however, based upon the 2D e chocardiographic images obtained there appears to be focal thickening, calcification, and partia l restriction. Mild aortic stenosis. Mild (1+) pulmonic valve insufficiency. Right ventricular systolic pressure estimated to be 39 mmHg. Stage 2 diastolic dysfunction. Ordering Physician: Nancy Contreras Referring Physician: Anayeli Rudolph Performed By: Cordelia Comer, GEOVANNA, RVT
== END | disposition home or self-care (01) ==
LOC: CVS 09:39
PROVIDERS: PCP Family Medicine; Referring Provider Internal Medicine Cardiovascular Disease; Visit Provider Internal Medicine Cardiovascular Disease
DX: R06.00 Dyspnea, unspecified (principal)
CPT/HCPCS: 93306

== ENCOUNTER 2022-01-07 08:13 | Day surgery (SDC) | payer MEDICARE, SELFPAY ==
[2021-12-31 15:14] LABS: Absolute Lymphocyte Count 0.79 X10^3/uL (0.83-4.51); Absolute Neutrophil Count 4.8 X10^3/uL (2.0-7.7); Basophil# 0.08 X10^3/uL; Basophil% 1.2 % (0-1); Eosinophil# 0.34 X10^3/uL; Eosinophils% 5.1 % (0-5); Hematocrit 35.2 % (37-47); Hemoglobin 11.6 g/dL (12.0-15.0); Lymphocyte # 0.79 X10^3/ul (0.83-4.51); Lymphocyte % 11.8 % (19-41); Mean Corpuscular Hgb 29.5 pg (27.0-32.0); Mean Corpuscular Volume 89.6 fL (81-99); Mean Platelet Vol. 10.3 fl (6.2-12.0); Monocyte# 0.65 X10^3/uL; Monocyte% 9.7 % (0-10); NRBC Flagged by Analyzer 0 % (0-5); Neutrophil # 4.82 X10^3/uL (2.7-7.7); Neutrophil % 71.6 % (47-70); Platelet Count 220 K/mm3 (150-450); RBC Distribution Width CV 12.8 % (11.6-14.6); RBC Distribution Width SD 42.2 fl (35.1-43.9); Red Blood Count 3.93 M/mm3 (4.2-5.4); White Blood Count 6.7 K/mm3 (4.4-11.0)
[2021-12-31 15:19] LABS: International Normalized Ratio 1.1; Prothrombin Time (Protime)PT. 13.7 SECONDS (11.7-14.9)
[2021-12-31 15:20] LABS: Partial Thromboplast Time 31.8 Seconds (24.1-36.2)
[2021-12-31 16:39] LABS: Anion Gap 6 (5-15); BUN 14 mg/dL (7-18); BUN/Creat Ratio 17.5 RATIO (10-20); Calcium,Total 9.3 mg/dL (8.5-10.1); Chloride 104 mmol/L (98-107); EST Glomerular Filtration Rate 76 mL/min (>60); Est Glom Filt Rate - Afr Amer 91 mL/min (>60); Glucose 158 mg/dL (74-106); Potassium 3.8 mmol/L (3.5-5.1); Sodium Level 138 mmol/L (136-145)
--- NOTE | 2022-01-01 15:57 | PCM.HP.BLA ---
History and Physical Date of Admission: 01/02/22 Megan Gayle is a 71 year-old white female that presents here today for a diagnostic heart cath for an abnormal stress test and an abnormal coronary calcium score. She has a history of underlying CAD-nonobstructive, aortic valve stenosis, pulmonary hypertension thought secondary to COPD/THANH, and hyperlipidemia. She was in the office in october with concerns over increase in SOB since she had COVID. She has a stress test which demonstrated findings potentially compatible with soft tissue attenuation/artifact although an element of stress-induced myocardial ischemia cannot necessarily be excluded. She did undergo a coronary calcium score which demonstrated a moderate burden of plaque with a score of 264. Based on this it was decided to further assess with a diagnostic heart cath. Allergies codeine Adverse Reaction (Verified 11/05/21 10:11) naproxen sodium [From Aleve] Adverse Reaction (Verified 11/05/21 10:11) Medications aspirin 81 mg chewable tablet 81 mg PO DAILY@0800 ##30 12/25/17 [Rx Confirmed 11/05/21] omeprazole 20 mg capsule,delayed release 20 mg PO DAILY 03/13/20 [History Confirmed 11/05/21] carvedilol 6.25 mg tablet See Rx Instructions .Route .COMPLEX #180 tabs 01/18/21 [Rx Confirmed 11/05/21] losartan 100 mg tablet 100 mg PO DAILY #90 tabs 02/04/21 [Rx Confirmed 11/05/21] potassium chloride 10 mEq tablet,extended release(part/cryst) 10 meq PO DAILYCM #90 tabs 03/11/21 [Rx Confirmed 11/05/21] furosemide 40 mg tablet 40 mg PO DAILY #90 tabs 04/19/21 [Rx Confirmed 11/05/21] atorvastatin 20 mg tablet 20 mg PO QHS #90 tabs 08/06/21 [Rx Confirmed 11/05/21] Ejection fraction %: 65 to 70 PFSH Medical History?(Updated 11/05/21 @ 10:16 by Berna Hobbs) Atherosclerotic heart disease of [place] coronary artery without angina pectoris Chest heaviness Chest pain COVID-19 GERD (gastroesophageal reflux disease) Hyperlipidemia Nonrheumatic aortic (valve) stenosis Obstructive sleep apnea Pulmonary hypertension Shortness of breath Thyroid nodule Surgical History? History of left heart catheterization (12/25/17) Family History? Mother CancerFather Heart diseaseBrother Hypertension Myocardial infarction Social History? Smoking Status:? Former smoker how long ago did patient quit smoking:? 1999, 1ppd second hand exposure:? Yes alcohol intake:? never substance use type:? does not use caffeine:? Yes Type: coffee ROS Const Const: Negative for fatigue, weakness, headache(s), frequent falls, difficulty sleeping or excessive sweating Eyes Eyes: Negative for loss of peripheral vision, transient loss of vision, blurry vision, double vision or tunnel vision ENT ENT: Negative for headache(s), dizziness, Nosebleed/epistaxis or balance problems Cardio Chest Pain: No Palpitations: No Edema: Bilateral Muscle aches with walking: None Resp Respiratory: Positive for SOB with activity (all the time, Dr. Zhang in November); Negative for SOB at rest, SOB orthopnea\SOB lying down, Cough or paroxysmal nocturnal dyspnea Additional Details: Covid September 16, 2021 (2nd time) GI GI: Negative nausea, vomiting, heartburn or black,tarry stools : Negative for hematuria Musc Musc: Negative for muscle aches/ myalgia, muscle weakness, joint pain or balance problems Skin Skin: Negative non-healing lesions, rash or unusual bruising Neuro Neuro: Negative for dizziness, lightheadedness, near syncope, syncope, frequent falls, headache(s), weakness, blurry vision, double vision or lack of coordination Alex Hematologic/Lymphatic: Negative for easy bleeding or easy bruising Endo Endo: Negative for fatigue, excessive sweating or increased thirst/drinking Psych Psych: Negative for anxiety or depression Allergy Allergy/Immunology: Negative for hives and Negative for rash Cardiology Exam Const Appearance: cooperative, healthy appearing, comfortable, no acute distress, well developed and well groomed Nutritional Appearance: obese Orientation: alert, awake and oriented x3 Head Head: normal to inspection, normocephalic and atraumatic Ears: hearing grossly normal bilaterally Nose: external nose normal Eyes Eyelids: eyelids normal Conjunctivae: conjunctivae normal Pupils: PERRL EOM: EOM intact bilaterally Neck Neck: normal visual inspection and full ROM Carotids: normal carotid upstroke Chest Chest inspection: normal inspection of the chest, symmetric chest movement and normal respiratory effort Auscultation: Bilateral: Clear to Auscultation Cardio Palpation: normal PMI Rate: regular rate Rhythm: regular rhythm Heart sounds: S1 normal, S2 normal and murmur Murmur: Grade 2/6, harsh, mid systolic, LLSB, LVOT and sternal notch GI GI: normal to inspection, soft, bowel sounds present and obese Neuro General: patient alert, patient awake, patient oriented x3 and moves all extremities Skin Skin: no rashes or lesions noted Extremities Pulses: Normal: Right Radial Pulse and Left Radial Pulse Lower Extremity Edema: Trace: Bilateral Psych Psychological: normal affect Assessment & Plan Assessment/Plan (1) Elevated coronary artery calcium score: (2) Abnormal stress test: (3) VAUGHAN (dyspnea on exertion): (4) Atherosclerotic heart disease of [place] coronary artery without angina pectoris: QUALIFIERS: [place] vs. transplanted heart: [place] heart Qualified Code(s): I25.10 - Atherosclerotic heart disease of [place] coronary artery without angina pectoris PLAN: Plan Pt will undergo a diagnostic heart cath. Follow up will be based on findings.
[2022-01-06 08:06] VITALS: BMI 49.4
--- NOTE | 2022-01-08 14:32 | CL.D_ITS ---
Patient Name: ANA HILTON Study Date: 01/07/2022 Performing: Char Ervin MD Ht: 61 inches 154.94 cm : 1950 Wt: 253.3 lbs 114.76 kg Age: 71 Gender: female BSA: 2.09 PROCEDURE(S) PERFORMED IC10-([id number])FFR, CORONARY OR GRAFT, INITIAL VESSEL DC02-([id number])LHC/COR CLINICAL PROFILE AND INDICATIONS Indications: Suspected CAD Heart Failure: None Stress/Imaging Stress Test w/SPECT MPI: Yes Result: Positive Intermediate RiskStress Test with SPECT MPI: Positive Intermediate Risk CAD Presentations: Other: dyspnea CONCLUSIONS CAD as described. iFR in the LAD was 0.92. RECOMMENDATIONS Maximal Medical therapy for CAD DESCRIPTION OF PROCEDURE The patient arrived to the procedure lab. The risks and benefits of the procedure as well as a full description of our services here and current unavailability of surgical backup were fully explained to the patient and/or their significant other prior to the catheterization. The Timeout was completed, verifying the correct patient and procedure. The patient's procedural site was prepped and draped in the usual fashion. Local anesthetic was given subcutaneously to right radial region with Lidocaine 2%. Using a modified Seldinger technique, arterial access was obtained via the right radial artery, a 6Fr sheath was inserted. Left Coronary Artery selective angiography was performed in multiple views using a 5 Fr. JL3.5 catheter. Right Coronary Artery selective angiography was then performed in multiple views using a 5 Fr. JR 4 catheter. Left Ventriculography was performed in BENITEZ projection using a 5 Fr. Pigtail catheter. LV to AO pullback pressures were then recorded.The arterial sheath was pulled and a TR Band was applied for hemostasis. 13cc of air CORONARY ANGIOGRAPHY DOMINANCE: Right Dominant LEFT MAIN: Mild luminal irregularities LEFT ANTERIOR DESCENDING ARTERY: PROX LAD: 60-70 % Stenosis, iFR was 0.92 consistent with lesion that can be treated medically at this time CIRCUMFLEX ARTERY: PROX CIRC: 20 % Stenosis RIGHT CORONARY ARTERY: Mild luminal irregularities COMPLICATIONS No Complications PROCEDURE MEDICATIONS Versed 1 mg IV Fentanyl 25 mcg IV Baby Aspirin (81mg) 1 Tabs PO @ 01/07/2022 08:35:22 Heparin given IA 01/07/2022 10:40:04 Heparin 4000 unit(s) IV 01/07/2022 10:52:18 SUMMARY OF HEMODYNAMIC DATA Time AIR REST ECG 08:34:15 AO 158/63 (103) SA 10:41:14 LV 209/2, 38 10:47:26 LV 198/5, 29 10:47:36 LVp 190/3, 24 10:47:48 AOp 194/70 (110) 10:47:55 ECG 11:19:41 Signed By Char Ervin MD On 01/08/2022 14:32:09 Char Ervin MD
== END 2022-01-07 13:35 | disposition home or self-care (01) ==
LOC: CLSP 08:13
PROVIDERS: Physician Assistant Medical; PCP Family Medicine; Referring Provider Internal Medicine Cardiovascular Disease; Visit Provider Internal Medicine Cardiovascular Disease
DX: I25.10 Atherosclerotic heart disease of native coronary artery without angina pectoris (principal); J44.9 Chronic obstructive pulmonary disease, unspecified; Z87.891 Personal history of nicotine dependence; R94.39 Abnormal result of other cardiovascular function study; R06.00 Dyspnea, unspecified; E78.5 Hyperlipidemia, unspecified; G47.33 Obstructive sleep apnea (adult) (pediatric); Z86.16 Personal history of COVID-19; Z79.82 Long term (current) use of aspirin; R06.02 Shortness of breath
CPT/HCPCS: 36415; 80048; 85025; 85610; 85730; 93454; 93571; 99152; 99153; J7040; Q9967; C1769; C1887; C1894

== ENCOUNTER → 2022-02-26 | Outpatient (CLI) | payer MEDICARE, SELFPAY ==
--- NOTE | 2022-02-26 10:13 | BI_ITS ---
MAMMOGRAPHY - BILATERAL SCREENING REASON FOR EXAM: Female, 71 years old. Routine annual screening examination. PERTINENT HISTORY: Grandmother with breast cancer. Remote left stereotactic breast biopsy in 2003 TECHNIQUE: Digital bilateral breast ga (3D mammographic acquisition) in the CC and MLO projections. 2-D mediolateral oblique (MLO) and craniocaudad (CC) views of both breasts were obtained. CAD: Full Field Digital Mammography with Computer Added Detection was performed. COMPARISON: 08/09/2019, 02/03/2017. FINDINGS: Breast Composition: The breasts are heterogeneously dense, which may obscure small masses. There are no dominant masses or suspicious calcifications. Stable biopsy marker in the left breast. Stable benign-appearing bilateral axillary lymph nodes. No other significant abnormalities are identified. There has been no significant change since the prior study. BI/SCRN MAMM (CAD)W/GA BILAT IMPRESSION: Stable bilateral screening mammogram. Yearly follow-up mammogram recommended. (A) ASSESSMENT CATEGORY: BIRADS Category 2: Benign. A letter regarding these results will be sent to the patient by the facility within 30 days. Approximately 10% of breast cancers are not detected by mammography. A normal mammogram should not delay biopsy of a clinically suspicious abnormality. Electronically Signed: Flynn Kim, at 9:11 EST ,
--- NOTE | 2022-02-26 10:20 | BD_ITS ---
STUDY: DUAL ENERGY X-RAY ABSORPTIOMETRY / DXA REASON FOR EXAM: Female, 71 years old. M810 TECHNIQUE: Bone Mineral Density (BMD) measurements of lumbar spine and bilateral hips were obtained. COMPARISON: Comparison is made with prior study dated 09/10/2011. FINDINGS: Lumbar Spine (L1-L4): g/cm2 (1.041) / T-score (0.2) / Z-score (2.2) Findings are suggestive of normal bone density with a low fracture risk. Left Femur Total: g/cm2 (1.126) / T-score (1.5) / Z-score (3.0) Left Femoral Neck: g/cm2 (0.780) / T-score (-0.6) / Z-score (1.2) Right Femur Total: g/cm2 (1.020) / T-score (0.6) / Z-score (2.1) Right Femoral Neck: g/cm2 (0.762) / T-score (-0.8) / Z-score (1.0) The T-Scores on the most recent prior examination were: Lumbar Spine (L1-L4): There has been improvement of bone density since the previous examination. Left Femur Total: which represents an improvement of 1.4%. Right Femur Total: which represents a worsening of 5.5%. BD/Dexa Bone Density Study IMPRESSION: The patient is considered normal as outlined below according to World Manoj Organization (WHO) criteria with a low fracture risk. There has been improvement of bone density since the previous examination. Reference Information: The T-score is the number of standard deviations above or below the standard which is normal for young adults at their peak bone mineral density. The World Health Organization (WHO) interprets the T-scores as follows: Above -1 Normal bone density Between -1 and -2.5 Osteopenia Equal to / or below -2.5 Osteoporosis As a practical clinical guideline, osteopenia may be graded as follows: Mild -1 through -1.5 Moderate -1.6 through -2.0 Severe -2.1 through -2.4 The Z-score is the number of standard deviations above or below age-matched controls. A Z-score of less than -1.5 would be considered abnormal. References: 1. NIH Osteoporosis and Related Bone Diseases www osteo.org 2. International Society for Clinical Densitometry www iscd.org 3. National Osteoporosis Foundation www nof.org Electronically Signed: Jr Maddox MD at 15:29 EST ,
== END | disposition home or self-care (01) ==
LOC: OPBD 10:11
PROVIDERS: PCP Family Medicine; Visit Provider Nurse Practitioner Family
DX: Z12.31 Encounter for screening mammogram for malignant neoplasm of breast (principal); Z80.3 Family history of malignant neoplasm of breast; M81.0 Age-related osteoporosis without current pathological fracture
CPT/HCPCS: 77063; 77067; 77080

== ENCOUNTER → 2022-05-13 | Outpatient (CLI) | payer MEDICARE, SELFPAY ==
[2022-05-13 12:52] LABS: AST(SGOT) 40 U/L (15-37); Alanine Aminotransfer ALT/SGPT 19 U/L (13-56); Albumin, Serum 3.4 g/dL (3.2-5.0); Alkaline Phosphatase 102 U/L (45-117); Anion Gap 8 (5-15); BUN 17 mg/dL (7-18); BUN/Creat Ratio 22.5 RATIO (10-20); Bilirubin, Direct 0.11 mg/dL (0.00-0.30); Calcium,Total 9.7 mg/dL (8.5-10.1); Chloride 108 mmol/L (98-107); Cholesterol 121 mg/dL (200); Creatinine, Serum 0.76 mg/dL (0.55-1.02); EST Glomerular Filtration Rate 80 mL/min (>60); Est Glom Filt Rate - Afr Amer 97 mL/min (>60); Globulin 3.8 g/dL (2.2-4.2); Glucose 115 mg/dL (74-106); High Density Lipoprotein 43 mg/dL; Potassium 4.6 mmol/L (3.5-5.1); Protein, Total 7.2 g/dL (6.4-8.2); Sodium Level 143 mmol/L (136-145); Triglycerides 82 mg/dL; Very Low Density Lipoprotein 16 mg/dL (5-40)
== END | disposition home or self-care (01) ==
PROVIDERS: PCP Family Medicine; Referring Provider Physician Assistant Medical; Visit Provider Physician Assistant Medical
DX: I27.20 Pulmonary hypertension, unspecified (principal); I10 Essential (primary) hypertension; E78.00 Pure hypercholesterolemia, unspecified
CPT/HCPCS: 36415; 80048; 80061; 80076

== ENCOUNTER → 2022-06-16 | Outpatient (CLI) | payer MEDICARE, SELFPAY ==
[2022-06-16 09:50] LABS: Anion Gap 1 (5-15); BUN 24 mg/dL (7-18); BUN/Creat Ratio 29.3 RATIO (10-20); Calcium,Total 9.8 mg/dL (8.5-10.1); Chloride 108 mmol/L (98-107); Creatinine, Serum 0.82 mg/dL (0.55-1.02); EST Glomerular Filtration Rate 73 mL/min (>60); Est Glom Filt Rate - Afr Amer 89 mL/min (>60); Glucose 112 mg/dL (74-106); Potassium 4.5 mmol/L (3.5-5.1); Sodium Level 137 mmol/L (136-145)
== END | disposition home or self-care (01) ==
LOC: LAB 09:11
PROVIDERS: PCP Family Medicine; Referring Provider Physician Assistant Medical; Visit Provider Physician Assistant Medical
DX: I10 Essential (primary) hypertension (principal)
CPT/HCPCS: 36415; 80048

== ENCOUNTER 2022-07-01 12:30 | Outpatient (RCR) | payer MEDICARE, SELFPAY ==
--- NOTE | 2022-06-23 14:20 | HP.PTEVAL_ITS ---
Patient's Visit Information ANA HILTON is a 71 year old F referred to Physical Therapy by [facility] with a diagnosis of BACK PAIN ,MUSCLE SPASMS. Date of Evaluation: 06/23/22 Physical Therapist: Karlos Pena, PT, Cert MDT, OCS - Visit Plan Frequency: 2x /Week Duration: 4 Weeks Plan: PT INTERVENTIONS DLS ,POSTURAL EX'S ,THORACIC STRENGTHENING ,LUMBAR FLEXION ,AND MODALITIES NEEDED - Subjective This 71 y/o female presents to physical therapy with BACK PAIN . Patient back pain 6 years which was intermittent. Most recently developed sciatica 6 weeks ago which got better ,then developed spasms in back . Seen [facility] tried muscle relaxers had adverse reactions thus stopped. Pain located right thoracic and and lumbar to glut. Aggravating lifting/bending ,walking and standing with spasms otherwise sitting or moving right leg or extended standing. Alleviating factors heat/cold. Coughing/sneezing +. Denies paresthesia/tingling -. Patient initially was unable to sleep in recliner. But able to sleep in bed . Patient pain affects QOL and function. Patient had no diagnostics. Patient has seen chiropractor manipulation and estim. SOCIAL: . VOCATION: part -time - Pain Right Back Pain Intensity (Out of 10): 4 Pain Intensity Range: 10 - Objective POSTURE: forward posture hips/knees flexed. GAIT: reciprocal pattern mild forward posture hip/knees flexed. PALPATION: tender LS/SI. SYMMTRIES: align. LUMABR: flexion min loss decrease curve reversal ,extension min ,,side glides min side glides. FLEXABILITY: hamstrings min tight ,piriformis mod tight. MMT: quads/hams 4/5 ,hip flexion 4-/5 ,ankle 5/5 - Special Tests L/S Slump test left side: Negative L/S Slump test right side: Negative L/S Left Straight Leg Raise: Negative L/S Right Straight Leg Raise: Negative Lumbar Standing: Flexion - Mechanical Response: No effect Lumbar Standing: Flexion - Symptoms During Testing: No effect Lumbar Standing: Flexion - Symptoms After Testing: No effect Lumbar Standing: Extension - Mechanical Response: No effect Lumbar Standing: Extension - Symptoms During Testing: Increases Lumbar Standing: Extension - Symptoms After Testing: No worse Lumbar Standing: Right Side Glides - Mechanical Response: No effect Lumbar Standing: Right Side [place] - Symptoms During Testing: Increases Lumbar Standing: Right Side [place] - Symptoms After Testing: No worse Lumbar Standing: Left Side [place] - Mechanical Response: No effect Lumbar Standing: Left Side [place] - Symptoms During Testing: No effect Lumbar Standing: Left Side [place] - Symptoms After Testing: No effect - Balance/Special Test Scores Oswestry Low Back Score: 19 - Goals Goal 1:: Patient to be I with HEP Goal Time Frame: 4-6 Weeks Goal 2:: Patient to improve posture for ADLS 80% of the time Goal Time Frame: 4-6 Weeks Goal 3:: Patient improve lumbar ROM for function of recovery for housework tasks and put on shoes Goal Time Frame: 4-6 Weeks Goal 4:: Patient to improve back oswestry score by 5 points to improve QOL and function Goal Time Frame: 4-6 Weeks Goal 5:: Patient to demonstrate 50% improvement with decrease pain and improved function Goal Time Frame: 4-6 Weeks - Rehabilitation Potential Physical Therapy Diagnosis: This patient has low back pain and thoracic with spasms with pain with position and motion testing and functional activities thus benefit from skilled PT Rehabilitation Potential: Good - Anticipated Interventions Patient/Client Instruction: Educate patient on: Condition, Plan of Care For the Purpose of:: To decrease pain, To increase ROM, To improve muscle performance and motor function, To improve ability to perform ADL's, To increase tolerance to activity/condition/position, To improve ability of physical actions for home/community/work/leisure, To improve health of tissue, To decrease soft tissue restriction, To increase flexibility/ROM TENS: Yes IF ES: Yes Cryotherapy (ice pack, ice massage): Yes Thermo therapy (hot pack): Yes Ultrasound (thermal/non thermal): Yes Thank you for the opportunity to evaluate your patient. For Medicare and Medicare HMO plans, please review the plan of care and approve it. It will need to be FAXED BACK to us at [phone] for Medicare purposes. For Medicare only, by signing this I certify the plan of care. Please let me know if there are questions or concerns regarding this plan of care. Physician Signature: Date:
--- NOTE | 2022-10-14 09:20 | HP.PT.NRP ---
Patient Information Patient Information: ANA HILTON was seen in my office for initial evaluation on 06/23/22. The following Plan of Care was established for this patient: POC Established Initial Frequency: 2x /Week Initial Duration: 4 Weeks Anticipated Interventions Patient/Client Instruction: Educate patient on: Condition and Plan of Care For the Purpose of:: To decrease pain, To increase ROM, To improve muscle performance and motor function, To improve ability to perform ADL's, To increase tolerance to activity/condition/position, To improve ability of physical actions for home/community/work/leisure, To improve health of tissue, To decrease soft tissue restriction and To increase flexibility/ROM TENS: Yes IF ES: Yes Cryotherapy (ice pack, ice massage): Yes Thermo therapy (hot pack): Yes Ultrasound (thermal/non thermal): Yes Last Seen Last Seen: This patient was last seen in our office . Pertinent comments regarding their Physical therapy will appear below: Patient was seen for PT for back pain for HEP ,doing well thus d/c At this point I will be discontinuing this patient from physical therapy. I would be happy to see this patient again in the future if found appropriate by the physician. Thank you! Karlos Pena, PT, Cert MDT, OCS Balance/Gait/Functional tests Balance/Special Test Scores Oswestry Low Back Score: 3
== END 2022-07-01 19:00 | disposition home or self-care (01) ==
LOC: PT 12:30
PROVIDERS: PCP Family Medicine; Referring Provider Nurse Practitioner Family; Visit Provider Nurse Practitioner Family
DX: M54.9 Dorsalgia, unspecified (principal); M62.838 Other muscle spasm
CPT/HCPCS: 97110; 97162

== ENCOUNTER → 2023-01-20 | Outpatient (CLI) | payer MEDICARE, SELFPAY ==
[2023-01-20 15:48] LABS: Absolute Neutrophil Count 5.1 X10^3/uL (2.0-7.7); Basophil# 0.11 X10^3/uL; Basophil% 1.4 % (0-1); Eosinophil# 0.35 X10^3/uL; Eosinophils% 4.6 % (0-5); Lymphocyte % 20.9 % (19-41); Mean Corp Hgb Conc 31.6 g/dL (32-36); Mean Corpuscular Hgb 29.2 pg (27.0-32.0); Mean Corpuscular Volume 92.5 fL (81-99); Mean Platelet Vol. 10.3 fl (6.2-12.0); Monocyte# 0.46 X10^3/uL; NRBC Flagged by Analyzer 0 % (0-5); Neutrophil # 5.06 X10^3/uL (2.7-7.7); Neutrophil % 66.1 % (47-70); Platelet Count 338 K/mm3 (150-450); RBC Distribution Width CV 12.6 % (11.6-14.6); RBC Distribution Width SD 42.7 fl (35.1-43.9); Red Blood Count 4.11 M/mm3 (4.2-5.4); White Blood Count 7.7 K/mm3 (4.4-11.0)
[2023-01-20 16:51] LABS: ALB/GLOB Ratio 0.8 RATIO (0.9-2.4); AST(SGOT) 35 U/L (15-37); Alanine Aminotransfer ALT/SGPT 20 U/L (13-56); Albumin, Serum 3.3 g/dL (3.2-5.0); Alkaline Phosphatase 93 U/L (45-117); Anion Gap 6 (5-15); BUN 19 mg/dL (7-18); BUN/Creat Ratio 23.7 RATIO (10-20); Calcium,Total 9.3 mg/dL (8.5-10.1); Chloride 106 mmol/L (98-107); EST Glomerular Filtration Rate 75 mL/min (>60); Est Glom Filt Rate - Afr Amer 91 mL/min (>60); Globulin 3.9 g/dL (2.2-4.2); Glucose 128 mg/dL (74-106); Potassium 4.4 mmol/L (3.5-5.1); Protein, Total 7.2 g/dL (6.4-8.2); Sodium Level 140 mmol/L (136-145); Thyroid Stim Hormone (TSH) 1.44 uIU/mL (0.358-3.74)
[2023-01-20 17:47] LABS: Hemoglobin A1c 6.6 % (3.8-5.6)
== END | disposition home or self-care (01) ==
PROVIDERS: PCP Family Medicine; Visit Provider Family Medicine
DX: E04.9 Nontoxic goiter, unspecified (principal)
CPT/HCPCS: 36415; 80053; 83036; 84443; 85025

== ENCOUNTER → 2023-09-30 | Outpatient (CLI) | payer MEDICARE, SELFPAY ==
--- NOTE | 2023-09-30 14:22 | RAD_ITS ---
STUDY: X-RAY - LUMBAR SPINE REASON FOR EXAM: Female, 73 years old. BACK PAIN TECHNIQUE: 3 view(s) of the lumbar spine were obtained. COMPARISON: 12/19/2016 FINDINGS: Normal lumbar lordosis. There is no substantial scoliosis. 2 mm of anterolisthesis of L4 on L5. There is multilevel endplate spondylosis of the lumbar vertebrae. There is multi-level degenerative disc disease with multi-level disc space narrowing. There is multilevel facet hypertrophy. The soft tissue structures are unremarkable. RAD/Lumbar Spine 2 or 3 Views IMPRESSION: Degenerative changes of the spine, as detailed above. MRI may be useful. Electronically Signed: Vaughn Chang MD at 8:54 EDT ,
== END | disposition home or self-care (01) ==
PROVIDERS: PCP Family Medicine; Referring Provider Family Medicine; Visit Provider Family Medicine
DX: M54.50 Low back pain, unspecified (principal)
CPT/HCPCS: 72100

== ENCOUNTER → 2024-02-08 | Outpatient (CLI) | payer MEDICARE, SELFPAY ==
[2024-02-08 11:01] LABS: Absolute Lymphocyte Count 1.59 X10^3/uL (0.83-4.51); Absolute Neutrophil Count 4.7 X10^3/uL (2.0-7.7); Basophil# 0.14 X10^3/uL; Basophil% 1.9 % (0-1); Eosinophil# 0.45 X10^3/uL; Eosinophils% 6.1 % (0-5); Hematocrit 36.6 % (37-47); Hemoglobin 11.8 g/dL (12.0-15.0); Lymphocyte # 1.59 X10^3/ul (0.83-4.51); Lymphocyte % 21.5 % (19-41); Mean Corp Hgb Conc 32.2 g/dL (32-36); Mean Corpuscular Hgb 29.4 pg (27.0-32.0); Mean Platelet Vol. 10.4 fl (6.2-12.0); Monocyte# 0.49 X10^3/uL; Monocyte% 6.6 % (0-10); NRBC Flagged by Analyzer 0 % (0-5); Neutrophil # 4.69 X10^3/uL (2.7-7.7); Neutrophil % 63.4 % (47-70); Platelet Count 283 K/mm3 (150-450); RBC Distribution Width CV 13.2 % (11.6-14.6); Red Blood Count 4.02 M/mm3 (4.2-5.4); White Blood Count 7.4 K/mm3 (4.4-11.0)
[2024-02-08 11:32] LABS: Anion Gap 4 (5-15); BUN 23 mg/dL (7-18); BUN/Creat Ratio 25.2 RATIO (10-20); Calcium,Total 10.5 mg/dL (8.5-10.1); Chloride 106 mmol/L (98-107); Creatinine, Serum 0.91 mg/dL (0.55-1.02); EST Glomerular Filtration Rate 64 mL/min (>60); Est Glom Filt Rate - Afr Amer 78 mL/min (>60); Glucose 117 mg/dL (74-106); Potassium 4.6 mmol/L (3.5-5.1); Sodium Level 139 mmol/L (136-145)
== END | disposition home or self-care (01) ==
PROVIDERS: PCP Family Medicine; Referring Provider Physician Assistant Medical; Visit Provider Physician Assistant Medical
DX: R06.09 Other forms of dyspnea (principal)
CPT/HCPCS: 36415; 80048; 83880; 85025

== ENCOUNTER → 2024-02-09 | Outpatient (CLI) | payer MEDICARE, SELFPAY ==
[2024-02-09 10:36] LABS: Ionized Calcium 1.38 mmol/L (1.09-1.30)
[2024-02-09 10:37] LABS: Ionized Calcium Order ORDER TUBE
== END | disposition home or self-care (01) ==
PROVIDERS: PCP Family Medicine; Referring Provider Physician Assistant Medical; Visit Provider Physician Assistant Medical
DX: E83.52 Hypercalcemia (principal)
CPT/HCPCS: 36415; 82330

== ENCOUNTER → 2024-03-07 | Outpatient (CLI) | payer MEDICARE, SELFPAY ==
--- NOTE | 2024-03-07 06:14 | ECHOCS_ITS ---
Reason For Study: Dyspnea/SOB Procedure This was a 2D Doppler, Color Flow transthoracic echocardiogram. The study was technically difficult. Contrast injection was performed. Exam performed in department. Left Ventricle Normal LV size. The estimated ejection fraction is 65 %. No evidence for diastolic dysfunction. No regional wall motion abnormalities noted. Right Ventricle Normal RV size. Normal systolic function. Atria The left and right atria are normal. No doppler evidence for ASD. Mitral Valve There is no mitral valve stenosis. No mitral valve insufficiency. Tricuspid Valve Mild tricuspid valve insufficiency. Pulmonary artery systolic pressure is 45 mmHg. Aortic Valve Mild diffuse aortic valve thickening. Trisinus/trileaflet aortic valve. Mild aortic stenosis. No aortic valve insufficiency. Pulmonic Valve There is no pulmonic valvular stenosis. Trivial pulmonic valve insufficiency. Great Vessels Normal aortic root. Pericardium/Pleural No pericardial effusion. Medication 22 gauge I.V. with prn adaptor inserted into right arm. Diluted definity 1.5ml given slow IV push to enhance endocardial definition. MMode/2D Measurements & Calculations LVIDd: 4.5 cm IVSd: 0.95 cm LVOT diam: 1.8 cm LVIDs: 2.9 cm LVPWd: 0.85 cm RVDd: 3.9 cm FS: 35.9 % LVOT area: 2.5 cm2 Ao root diam: 3.1 cm LAV(MOD-bp): 53.4 ml LVAd ap4: 31.4 cm2 LAV(MOD-bp) Indexed: 25.9 ml/m2 LVLd ap4: 7.7 cm LAV(MOD-sp2): 43.5 ml EDV(MOD-sp4): 104.1 ml LAV(MOD-sp4): 58.8 ml EDV(sp4-el): 108.3 ml LVAs ap4: 13.3 cm2 LVLs ap4: 5.3 cm ESV(MOD-sp4): 28.3 ml ESV(sp4-el): 28.6 ml EF(MOD-sp4): 72.8 % EF(sp4-el): 73.6 % SV(MOD-sp4): 75.8 ml SV(sp4-el): 79.7 ml LA A4 area: 20.1 cm2 SI(MOD-sp4): 36.7 ml/m2 LA dimension(2D): 4.0 cm RA A4 area: 15.7 cm2 TAPSE: 2.6 cm Time Measurements MV dec time: 0.24 sec Doppler Measurements & Calculations MV E max juan jose: 125.3 cm/sec Lat Peak E' Juan Jose: 9.8 cm/sec Med Peak E' Juan Jose: 9.2 cm/sec MV A max juan jose: 112.2 cm/sec E/E' lat: 12.7 E/E' med: 13.6 MV E/A: 1.1 MV V2 max: 152.0 cm/sec MV P1/2t max juan jose: 152.0 cm/sec Ao V2 max: 270.0 cm/sec MV max P.2 mmHg MV P1/2t: 86.2 msec Ao max P.3 mmHg MV V2 mean: 68.4 cm/sec MV dec slope: 516.5 cm/sec2 Ao V2 mean: 177.3 cm/sec MV mean P.5 mmHg MVA(P1/2t): 2.6 cm2 Ao mean P.4 mmHg MV V2 VTI: 53.2 cm Ao V2 VTI: 66.5 cm MVA(VTI): 2.0 cm2 AV (velocity ratio): 0.65 TERA(I,D): 1.6 cm2 TERA(V,D): 1.6 cm2 LV V1 max: 173.3 cm/sec SV(LVOT): 106.5 ml PA V2 max: 108.2 cm/sec LV V1 max P.0 mmHg LV V1 mean P.8 mmHg LV V1 mean: 111.9 cm/sec LV V1 VTI: 43.0 cm TR max juan jose: 313.9 cm/sec TR max P.4 mmHg ECHO/Echo Complete W/ Contrast Interpretation Summary The estimated ejection fraction is 65 %. No evidence for diastolic dysfunction. Mild aortic stenosis. Ordering Physician: Nancy Contreras Referring Physician: Nancy Contreras Performed By: Luis Brumfield RCS
--- NOTE | 2024-03-07 10:43 | STRESSREP ---
Stress Test Report Pharmacologic myocardial perfusion stress test. 73-year-old lady with a history of chest pain Resting EKG demonstrates sinus bradycardia with a rate of 52 bpm. Resting blood pressure is 142/88 mmHg. 0.4 mg of regadenoson was infused per usual protocol followed by rapid intravenous saline flush injection. Continuous EKG monitoring was performed. The maximum heart rate was 78 bpm which was 52% of max impacted heart rate the maximum workload was 1 metabolic equivalent. At rest there were no ST or T wave changes noted to suggest ischemia and at peak infusion nonspecific ST changes were noted which did not meet the criteria for ischemia. No clinical angina is noted. The final blood pressure was 142/82 mmHg. Myocardial perfusion protocol. 13.9 mCi of technetium 99m sestamibi was injected at rest. 0.4 mg of regadenoson was infused per usual protocol. At peak infusion 44.1 mCi of technetium 99m sestamibi was injected stress images were obtained stress and rest images were reconstructed and compared in the short axis vertical long and horizontal long axis. Gated images were also obtained. Perfusion SPECT analysis: Review of the stress images demonstrate normal uptake of tracer noted in all areas of the myocardium. The resting images similar demonstrated normal uptake of tracer noted in all areas of the myocardium. No areas of reversibility are noted to suggest ischemia and no previous infarct is noted. Gated SPECT analysis: The gated ejection fraction is over 70%. Conclusion: Normal pharmacologic myocardial perfusion stress test. Preserved ejection fraction.
== END | disposition home or self-care (01) ==
LOC: CVS 06:13
PROVIDERS: PCP Family Medicine; Referring Provider Physician Assistant Medical; Visit Provider Physician Assistant Medical
DX: R06.09 Other forms of dyspnea (principal); I25.10 Atherosclerotic heart disease of native coronary artery without angina pectoris; I35.0 Nonrheumatic aortic (valve) stenosis
CPT/HCPCS: 78452; 93017; 93306; A9500; Q9957; A4216; C8929; J2785

== ENCOUNTER → 2024-03-21 | Outpatient (CLI) | payer MEDICARE, SELFPAY ==
[2024-03-21 14:04] LABS: Ionized Calcium Order ORDER TUBE
[2024-03-21 14:47] LABS: Carboxyhemoglobin Frac (CO) 2.7 % (0.0-1.5)
[2024-03-21 14:57] LABS: Vitamin D,25 Hydroxy 28.7 ng/mL
[2024-03-21 14:57] LABS: Ionized Calcium 1.31 mmol/L (1.09-1.30)
== END | disposition home or self-care (01) ==
PROVIDERS: PCP Family Medicine; Referring Provider Physician Assistant Medical; Visit Provider Physician Assistant Medical
DX: E83.52 Hypercalcemia (principal)
CPT/HCPCS: 36415; 82306; 82330; 82375; 83970

== ENCOUNTER → 2024-04-19 | Outpatient (CLI) | payer MEDICARE, SELFPAY ==
--- NOTE | 2024-04-19 11:57 | US_ITS ---
PROCEDURE: THYROID REASON FOR EXAM: 73-year-old female, concern for hyperparathyroidism. TECHNIQUE: Thyroid ultrasound COMPARISON: None. FINDINGS: Right thyroid lobe measures 5.6 x 3.5 x 2.8 cm. Left thyroid lobe measures 4.1 x 1.7 x 1.8 cm. Isthmus thickness is0.2 cm. Thyroid Size: Normal Background Echotexture: Normal Thyroid Nodules: One right thyroid nodule is visualized, which is solid, isoechoic, wider than tall, smooth margins without calcification, measuring 3.7 x 2.6 x 3.1 cm, TR3. US/Thyroid IMPRESSION: Right TI-RADS 3 thyroid nodule, which meets criteria for fine-needle aspiration by ACR TI-RADS criteria. FNA recommended. Reading Location: [id number]
--- NOTE | 2024-04-19 11:59 | BI_ITS ---
PROCEDURE: SCRN MAMM (CAD)W/GA BILAT REASON FOR EXAM: F, Age 73 y/o, grandmother with breast cancer. Annual mammographic follow-up. Prior right stereotactic breast biopsy. TECHNIQUE: Bilateral screening digital breast tomosynthesis with 2D and 3D images. Computer aided detection. COMPARISON: Prior exam(s) dating back to February 26, 2022.. FINDINGS: The breasts are heterogeneously dense which may obscure small masses. Questionable 3.7 cm x 1.7 cm nodule in the superior retroareolar region of the left breast. Correlation with ultrasound recommended. No suspicious masses, areas of developing architectural distortion, or suspicious calcifications. BI/SCRN MAMM (CAD)W/GA BILAT IMPRESSION: Suggestive of a nodular density in the superior retroareolar region of the left breast as described. Correlation with ultrasound recommended. Follow-up code: Targeted ultrasound recommended. BI-RADS category: 0 The patient will be notified of the results by letter. Reading Location: [place] [id number]
== END | disposition home or self-care (01) ==
PROVIDERS: PCP Family Medicine; Referring Provider Family Medicine; Visit Provider Family Medicine
DX: Z12.31 Encounter for screening mammogram for malignant neoplasm of breast (principal); Z80.3 Family history of malignant neoplasm of breast; E83.52 Hypercalcemia
CPT/HCPCS: 76536; 77063; 77067

== ENCOUNTER → 2024-04-27 | Outpatient (CLI) | payer MEDICARE, SELFPAY ==
--- NOTE | 2024-04-27 09:08 | US_ITS ---
PROCEDURE: BREAST LIMITED UNILATERAL REASON FOR EXAM: Abnormal screening mammogram. COMPARISON: Comparison is made with prior mammogram dated April 19, 2024. TECHNIQUE: Targeted left breast ultrasound performed. FINDINGS: LEFT: Ultrasound targeted to the upper aspect of the left breast with attention to the retroareolar region. The breast tissue appears sonographically normal. No cyst, solid mass, or suspicious shadowing. US/Breast Limited Unilateral IMPRESSION: No sonographic abnormality. Routine mammographic follow-up recommended. BI-RADS 1: NEGATIVE. RECOMMEND ANNUAL MAMMOGRAPHIC SCREENING. Reading Location: [id number]
[2024-04-27 13:11] LABS: ALB/GLOB Ratio 1.5 RATIO (0.9-2.4); AST(SGOT) 42 U/L (<=31); Alanine Aminotransfer ALT/SGPT 16 U/L (<=34); Albumin, Serum 4.1 g/dL (3.4-4.8); Alkaline Phosphatase 99 U/L (35-104); Anion Gap 11 (5-15); BUN 22 mg/dL (4-19); BUN/Creat Ratio 23.3 RATIO (10-20); Carbon Dioxide 25.7 mmol/L (22.0-29.0); Chloride 102 mmol/L (96-108); Creatinine, Serum 0.9 mg/dL (0.6-1.0); EST Glomerular Filtration Rate 66 (>60); Globulin 2.6 g/dL (2.2-4.2); Glucose 112 mg/dL (70-99); Potassium 4.5 mmol/L (3.3-5.1); Protein, Total 6.7 g/dL (5.9-8.4); Sodium Level 139 mmol/L (133-145); Total Bilirubin 0.35 mg/dL (0.00-1.30); Vitamin D,25 Hydroxy 24.8 ng/mL (30-100)
[2024-04-29 04:43] LABS: PTHIN 63 pg/mL (11-61)
== END | disposition home or self-care (01) ==
PROVIDERS: PCP Family Medicine; Referring Provider Family Medicine; Visit Provider Family Medicine
DX: E83.52 Hypercalcemia (principal); R92.30 Dense breasts, unspecified; R92.8 Other abnormal and inconclusive findings on diagnostic imaging of breast
CPT/HCPCS: 36415; 76642; 80053; 82306; 83970

== ENCOUNTER → 2024-06-13 | Outpatient (CLI) | payer MEDICARE, SELFPAY ==
[2024-06-13 11:31] LABS: Free T3 3.4 pg/mL (2.18-3.98)
== END | disposition home or self-care (01) ==
LOC: LAB 09:54
PROVIDERS: PCP Family Medicine; Referring Provider Surgery; Visit Provider Surgery
DX: E04.1 Nontoxic single thyroid nodule (principal)
CPT/HCPCS: 36415; 84439; 84443; 84481

== ENCOUNTER → 2024-06-27 | Outpatient (CLI) | payer MEDICARE, SELFPAY ==
[2024-06-27 11:30] LABS: AST(SGOT) 45 U/L (<=31); Alanine Aminotransfer ALT/SGPT 7 U/L (<=34); Albumin, Serum 4.1 g/dL (3.4-4.8); Alkaline Phosphatase 106 U/L (35-104); Bilirubin, Direct 0.24 mg/dL (0.00-0.30); Cholesterol 111 mg/dL (<=200); Globulin 2.9 g/dL (2.2-4.2); High Density Lipoprotein 35 mg/dL; Low Density Lipoprotein Calc. 56 mg/dL; Total Bilirubin 0.48 mg/dL (0.00-1.30); Triglycerides 98 mg/dL; Very Low Density Lipoprotein 20 mg/dL (5-40); cholesterol:hdl ratio screen 3.15
== END | disposition home or self-care (01) ==
LOC: MTLAB 08:56
PROVIDERS: PCP Family Medicine; Referring Provider Student in an Organized Health Care Education/Training Program; Visit Provider Student in an Organized Health Care Education/Training Program
DX: E78.5 Hyperlipidemia, unspecified (principal)
CPT/HCPCS: 36415; 80061; 80076

== ENCOUNTER → 2024-07-13 | Outpatient (CLI) | payer MEDICARE, SELFPAY | END | disposition home or self-care (01) | LOC: SL 19:55 | PROVIDERS: PCP Family Medicine; Referring Provider Nurse Practitioner Acute Care; Visit Provider Nurse Practitioner Acute Care | DX: G47.33 Obstructive sleep apnea (adult) (pediatric) (principal) | CPT/HCPCS: 95810 ==